=== PATIENT | female | born 1990 | race Caucasian/White ===

== ENCOUNTER → 2018-07-13 17:30 | Outpatient (CLI) | payer OTHER, SELFPAY ==
[2018-07-13 19:32] LABS: Chlamydia Trachomatis by PCR Negative (Negative); Neisserai gonorrhoeae by PCR Negative (Negative); Probe Check PASS; Sample Adequacy Control PASS; Specimen Processing Control PASS
== END ==
PROVIDERS: Family Provider Family Medicine; PCP Family Medicine; Visit Provider Obstetrics & Gynecology
DX: Z34.90 Encounter for supervision of normal pregnancy, unspecified, unspecified trimester (principal)
CPT/HCPCS: 87086; 87491; 87591

== ENCOUNTER → 2018-07-14 16:25 | Outpatient (CLI) | payer OTHER, SELFPAY ==
[2018-07-14 17:12] LABS: Absolute Lymphocyte Count 1.95 X10^3/ul (0.83-4.51); Absolute Neutrophil Count 5.7 X10^3/uL (2.0-7.7); Basophil# 0.01 X10^3/uL; Basophil% 0.1 % (0-1); Eosinophil# 0.11 X10^3/uL; Eosinophils% 1.3 % (0-5); Hematocrit 35.3 % (37-47); Hemoglobin 12.2 g/dl (12.0-15.0); Lymphocyte # 1.95 X10^3/ul (4.0); Mean Corp Hgb Conc 34.6 g/gl (32-36); Mean Corpuscular Hgb 30.1 pg (27.0-32.0); Mean Corpuscular Volume 87.2 fL (81-99); Mean Platelet Vol. 9.3 fl (6.2-12.0); Monocyte# 0.69 X10^3/uL; Monocyte% 8.1 % (0-10); Neutrophil % 67.3 % (47-70); Platelet Count 255 K/mm3 (150-450); RBC Distribution Width CV 13.3 % (11.6-14.6); RBC Distribution Width SD 41.6 fl (35.1-43.9); Red Blood Count 4.05 M/mm3 (4.2-5.4); White Blood Count 8.5 K/mm3 (4.4-11.0)
[2018-07-14 17:47] LABS: POSITIVE COUNT NO; POSITIVE DIFFERENTIAL NO; POSITIVE MORPHOLOGY NO
[2018-07-14 17:59] LABS: Thyroid Stim Hormone (TSH) 0.35 uIU/mL (0.358-3.74)
[2018-07-14 18:31] LABS: HIV - WCH Non-Reactive (Nonreactive); Rubella IgG 96.5 IU/mL
[2018-07-16 03:42] LABS: Rapid Plasmin Reagin (RPR) NONREACTIVE (NONREACTIVE)
[2018-07-16 11:29] LABS: HEPATITIS B SURFACE AG Negative (Negative)
== END ==
PROVIDERS: Family Provider Family Medicine; PCP Family Medicine; Visit Provider Obstetrics & Gynecology
DX: Z34.90 Encounter for supervision of normal pregnancy, unspecified, unspecified trimester (principal); N92.6 Irregular menstruation, unspecified
CPT/HCPCS: 36415; 84443; 85025; 86592; 86703; 86762; 86850; 86900; 87340

== ENCOUNTER → 2018-07-15 13:25 | Outpatient (CLI) | payer OTHER, SELFPAY ==
[2018-07-15 17:39] LABS: Free T3 2.4 pg/mL (2.18-3.98)
== END ==
PROVIDERS: Family Provider Family Medicine; PCP Family Medicine; Visit Provider Obstetrics & Gynecology
DX: R79.89 Other specified abnormal findings of blood chemistry (principal)
CPT/HCPCS: 36415; 84481

== ENCOUNTER → 2018-11-22 13:40 | Outpatient (CLI) | payer OTHER, SELFPAY ==
[2018-11-22 13:26] VITALS: BMI 28.5
--- NOTE | 2018-11-22 13:42 | US_ITS ---
STUDY: SECOND AND THIRD TRIMESTER OBSTETRICAL ULTRASOUND - LIMITED REASON FOR EXAM: Female, 28 years old. Right abdominal pain LMP: May 16, 2018 PRIOR ULTRASOUND: None. TECHNIQUE: Transabdominal TECHNICAL QUALITY: Adequate. FINDINGS: There is a single intrauterine fetus. The fetus is in a cephalic presentation. There is demonstrated cardiac activity with a heart rate of 142 bpm. There is a normal amniotic fluid volume. The largest amniotic fluid pocket measures 4.1 cm. The amniotic fluid index (ADAM) is 14.0 cm. The placenta is fundal and posterior There are Grade 0 placental changes. The cervix measures 3.8 cm in length. There is maternal right hydronephrosis. BIOMETRY: BPD: 6.9 cm: 27 weeks, 6 days HC: 27.3 cm: 28 weeks, 5 days AC: 23.0 cm: 27 weeks, 3 days FL: 5.3 cm: 28 weeks, 1 days Age by LMP: 27 weeks, 1 days. DONALD by LMP: February 20, 2019. age by current US: 28 weeks, 1 days. DONALD by current US: February 13, 2019. Estimated weight: 1124 grams, +/- 164 grams, 64 percentile. US/OB Limited With Biometrics IMPRESSION: Single intrauterine gestation 28 weeks 1 day with estimated due date February 13, 2019. Estimated weight 1124 g. Maternal hydronephrosis. Electronically Signed: Rich Marcos MD at 15:44 EST , Service support ,
== END ==
PROVIDERS: Family Provider Family Medicine; PCP Family Medicine; Referring Provider Nurse Practitioner Women's Health; Visit Provider Nurse Practitioner Women's Health
DX: O26.899 Other specified pregnancy related conditions, unspecified trimester (principal); R10.30 Lower abdominal pain, unspecified; Z3A.00 Weeks of gestation of pregnancy not specified
CPT/HCPCS: 76816; 87086

== ENCOUNTER → 2018-11-26 10:46 | Outpatient (CLI) | payer OTHER, SELFPAY ==
[2018-11-22 13:26] VITALS: BMI 28.5
[2018-11-26 12:12] LABS: Absolute Lymphocyte Count 1.59 X10^3/ul (0.83-4.51); Absolute Neutrophil Count 5.9 X10^3/uL (2.0-7.7); Basophil# 0.01 X10^3/uL; Basophil% 0.1 % (0-1); Eosinophil# 0.08 X10^3/uL; Eosinophils% 0.9 % (0-5); Hematocrit 35.8 % (37-47); Hemoglobin 12.1 g/dl (12.0-15.0); Lymphocyte # 1.59 X10^3/ul (4.0); Lymphocyte % 18.9 % (19-41); Mean Corp Hgb Conc 33.8 g/gl (32-36); Mean Corpuscular Hgb 30.9 pg (27.0-32.0); Mean Corpuscular Volume 91.3 fL (81-99); Mean Platelet Vol. 9.4 fl (6.2-12.0); Monocyte# 0.75 X10^3/uL; Monocyte% 8.9 % (0-10); Neutrophil # 5.93 X10^3/uL (2.7-7.7); Neutrophil % 70.4 % (47-70); Platelet Count 215 K/mm3 (150-450); RBC Distribution Width CV 13.4 % (11.6-14.6); RBC Distribution Width SD 43.9 fl (35.1-43.9); Red Blood Count 3.92 M/mm3 (4.2-5.4); White Blood Count 8.4 K/mm3 (4.4-11.0)
[2018-11-26 12:14] LABS: POSITIVE COUNT NO; POSITIVE DIFFERENTIAL NO; POSITIVE MORPHOLOGY NO
[2018-11-26 13:00] LABS: Glucose Challenge Gest 1H 50g 102 mg/dL (70-140)
--- OUTSIDE RECORDS SUMMARY | 2019-01-30 19:36 | XMS RPT_ITS ---
:1990 Author Organization OHIP Support Name Relationship Address Phone FOX HEADLEY Unavailable [address] + [place] [address] WC Unavailable [address] + [place] [address] TAYLOR HEADLEYER Unavailable [address] + [place] [address] [facility] Unavailable [address] + [place] [address] FANG FOX Unavailable [address] + [place] [address] [facility] Unavailable [address] + [place] [address] FANG FOX Unavailable [address] + [place] [address] [facility] Unavailable [address] + [place] [address] FANG FOX Unavailable [address] + [place] [address] [facility] Unavailable [address] + [place] [address] FANG, FOX Unavailable [address] + [place] [address] [facility] Unavailable [address] + [place] [address] FANG FOX Unavailable [address] + [place] [address] [facility] Unavailable [address] + [place] [address] FANG FOX Unavailable [address] + [place] [address] [facility] Unavailable [address] + [place] [address] FANG FOX Unavailable [address] + [place] [address] [facility] Unavailable [address] + [place] [address] FANG FOX Unavailable [address] + [place] [address] [facility] Unavailable [address] + [place] [address] FANG FOX Unavailable [address] + [place] [address] [facility] Unavailable [address] + [place] [address] LESLEY ALEXANDER Unavailable [address] + [place] [address] [facility] Unavailable [address] + [place] [address] FANG FOX Unavailable [address] + [place] [address] [facility] Unavailable [address] + [place] [address] Care Team Providers Name Role Phone ARTHUR MEJIA Attending Unavailable SAMANTHA CASTRO Referring Unavailable NO PRIMARY MD CHARU Primary Care Unavailable Samantha Castro Attending Unavailable Jos Sheth Referring Unavailable Lissett Elias Attending Unavailable Jos Sheth Referring Unavailable Lissett Elias Attending Unavailable Lissett Elias Referring Unavailable Jos Sheth Primary Care Unavailable Lissett Elias Attending Unavailable Lissett Elias Referring Unavailable Jos Sheth Primary Care Unavailable Samantha Castro Attending Unavailable Jos Sheth Referring Unavailable Jos Sheth Primary Care Unavailable ASSESSMENT, HEALTH RISK Attending Unavailable Jos Sheth Referring Unavailable Jos Sheth Primary Care Unavailable Samantha Castro Attending Unavailable [place], Jos Referring Unavailable Meryl, Jos Primary Care Unavailable Marcanthony, Samantha Attending Unavailable Meryl, Jos Primary Care Unavailable Marcanthony, Samantha Referring Unavailable Marcanthony, Samantha Attending Unavailable Marcanthony, Samantha Referring Unavailable [place], Jos Primary Care Unavailable Marcanthony, Samantha Attending Unavailable Meryl, Jos Primary Care Unavailable Curt, Lissett Attending Unavailable Meryl, Jos Referring Unavailable Marcanthony, Samantha Attending Unavailable Meryl, Jos Referring Unavailable Marcanthony, Samantha Attending Unavailable Meryl, Jos Referring Unavailable PROBLEMS PROBLEMS DATE TYPE CONDITION / CODE ATTENDING STATUS SOURCE 11/22/2018 Unknown R10.30 - [place], Lissett Active [place] abdominal pain, Community unspecified / Hospital R10.30(ICD-10) Repository 11/22/2018 Unknown O26.899 - Other [place], Lissett Active [place] specified Community related Hospital conditions, Repository unspecified trimester / O26.899(ICD-10) 11/22/2018 Unknown R10.9 - [place], Lissett Active [place] Unspecified Community abdominal pain / Hospital R10.9(ICD-10) Repository 11/22/2018 Unknown Z34.02 - [place], Lissett Active [place] Encounter for [facility] normal first [facility] , second trimester / Z34.02(ICD-10) 11/22/2018 Unknown R10.2 - Pelvic [place], Lissett Active [place] and perineal pain Community / R10.2(ICD-10) Hospital Repository 11/22/2018 Unknown Z3A.27 - 27 weeks [place], Lissett Active [place] gestation of [facility] / Hospital Z3A.27(ICD-10) Repository 11/05/2018 Unknown Z3A.24 - 24 weeks Marcanthony, Active [place] gestation of [facility] / Hospital Z3A.24(ICD-10) Repository 09/06/2018 Unknown Z3A.16 - 16 weeks Marcanthony, Active [place] gestation of [facility] / Hospital Z3A.16(ICD-10) Repository 08/09/2018 Unknown Z34.01 - [place], Lissett Active [place] En[facility] for [facility] normal first Repository , first trimester / Z34.01(ICD-10) 08/09/2018 Unknown Z3A.08 - 8 weeks [place], Lissett Active [place] gestation of [facility] / Hospital Z3A.08(ICD-10) Repository 07/16/2018 Unknown R79.89 - Other Marcanthony, Active [place] specified [facility] abnormal findings Hospital of blood Repository chemistry / R79.89(ICD-10) 09/29/2018 Unknown Z34.90 - [place], Active [place] Encounter for [facility] supervision of Hospital normal , Repository unspecified, unspecified trimester / Z34.90(ICD-10) 09/29/2018 Unknown N92.6 - Irregular Erasmoanthjacob, Active [place] menstruation, [facility] unspecified / Hospital N92.6(ICD-10) Repository PROCEDURES PROCEDURES No Procedure Records FoundRESULTS RESULTS CBC W/DIFF, AUTOMATED Collected: 11/26/2018 Status: F Source: [place] 11:47 AM [facility] REPOSITORY TYPE CODE TESTS RESULT OUT OF RANGE REFERENCE UNITS LAB L100.1000 4.4-11.0 K/mm3 Normal WBC 8.4 LAB L100.1200 4.2-5.4 M/mm3 Low RBC 3.92 LAB L100.1300 12.0-15.0 g/dl Normal HGB 12.1 LAB L100.1400 37-47 % Low HCT 35.8 LAB L100.1500 81-99 fL Normal MCV 91.3 LAB L100.1600 27.0-32.0 pg Normal MCH 30.9 LAB L100.1700 32-36 g/gl Normal MCHC 33.8 LAB L100.1810 11.6-14.6 % Normal RDW CV 13.4 LAB L100.1820 35.1-43.9 fl Normal RDW SD 43.9 LAB L100.1900 150-450 K/mm3 Normal PLT 215 LAB L100.2000 6.2-12.0 fl Normal MPV 9.4 LAB L100.2100 47-70 % High NEUT% 70.4 LAB L100.2200 19-41 % Low LY% 18.9 LAB L100.2300 0-10 % Normal MONO% 8.9 LAB L100.2400 0-5 % Normal EO% 0.9 LAB L100.2500 0-1 % Normal BASO% 0.1 LAB L100.2550 0.0-0.9 % Normal IM GRAN % 0.800 Result Comment: IG% - Immature Granulocytes (promyelocytes, myelocytes and metamyelocytes) > 1% indicates that a LEFT SHIFT is Present. LAB L100.2620 2.0-7.7 X10 3/uL Normal Absolute Neut 5.9 LAB L100.2720 0.83-4.51 X10 3/ul Normal Absolute Lymph 1.59 Performed By: #### L100.0100 #### [facility] [address] [place], [address] GLUCOSE CHALLENGE GEST Collected: 11/26/2018 Status: F Source: [place] 1H 50G 11:47 AM [facility] REPOSITORY TYPE CODE TESTS RESULT OUT OF RANGE REFERENCE UNITS LAB L501.0250 70-140 mg/dL Normal GLU GEST 102 50g 1H Performed By: #### L501.0250 #### [facility] [address] [place], [address] Observed: 11/22/2018 Status: F Source: [place] CULTURE, URINE 6:17 PM [facility] REPOSITORY Urine Culture Culture exhibits no growth. Performed By: #### M100.0650 #### [facility] [address] [place], [address] OB LIMITED WITH Observed: 11/22/2018 Status: F Source: [place] BIOMETRICS 1:42 PM [facility] REPOSITORY [facility] Imaging Services [address] [place] [address] OB Limited With Biometrics MR#: [id number] Acct: [id number] Name: FANGARTHUR M Rep #: [id number] : 1990 F 28 From: Rich Marcos MD PCP: Jos Sheth DO Status: REG CLI Study: OB Limited With Biometrics Date of Exam: 11/22/18 Exam# [id number] Ordering Dr: Lissett Elias EVENT MARKETING MANAGER-C STUDY: SECOND AND THIRD TRIMESTER OBSTETRICAL ULTRASOUND - LIMITED REASON FOR EXAM: Female, 28 years old. Right abdominal pain LMP: May 16, 2018 PRIOR ULTRASOUND: None. TECHNIQUE: Transabdominal TECHNICAL QUALITY: Adequate. FINDINGS: There is a single intrauterine fetus. The fetus is in a cephalic presentation. There is demonstrated cardiac activity with a heart rate of 142 bpm. There is a normal amniotic fluid volume. The largest amniotic fluid pocket measures 4.1 cm. The amniotic fluid index (ADAM) is 14.0 cm. The placenta is fundal and posterior There are Grade 0 placental changes. The cervix measures 3.8 cm in length. There is maternal right hydronephrosis. BIOMETRY: BPD: 6.9 cm: 27 weeks, 6 days HC: 27.3 cm: 28 weeks, 5 days AC: 23.0 cm: 27 weeks, 3 days FL: 5.3 cm: 28 weeks, 1 days Age by LMP: 27 weeks, 1 days. DONALD by LMP: February 20, 2019. age by current US: 28 weeks, 1 days. DONALD by current US: February 13, 2019. Estimated weight: 1124 grams, +/- 164 grams, 64 percentile. US/OB Limited With Biometrics IMPRESSION: Single intrauterine gestation 28 weeks 1 day with estimated due date February 13, 2019. Estimated weight 1124 g. Maternal hydronephrosis. Electronically Signed: Rich Marcos MD at 15:44 EST , Service support , CC: GUME Elias; Jos Sheth DO Freight Car Loader: Signed BUSINESS DEVELOPMENT PROFESSIONAL OFFICE VISIT Observed: 11/22/2018 Status: F Source: [place] REPORT 1:39 PM [facility] REPOSITORY [facility] [address] [place] [address] OFFICE VISIT Date of Service: 11/22/18 MR#: [id number] Acct: [id number] Name: ARTHUR HEADLEY Rep #: [id number] : 1990 Provider: GUME Elias Age/Sex: 28/F Location: [facility] Status: Signed Intake Vital Signs11/22/18 Height 5 ft 1 in 11/22/18 Weight: 151 lb 11/22/18 Body Mass Index (BMI) 28.5 11/22/18 Blood Pressure 102/70 11/22/18 Temperature 98.6 F 11/22/18 Body Mass Index (BMI) 26.4 Intake Visit Reasons: 27 weeks-R sided abdominal/side pain Chief Complaint: est ob, abd pain Monotype Keyboard Operator Required: No Is patient in pain?: No Allergies amoxicillin Allergy (Mild, Verified 11/22/18 13:26) Other ibuprofen [From Motrin] Allergy (Mild, Verified 11/22/18 13:26) Hives Medications vitamin,calcium,qwrasikb-pyau-audxu acid tablet 1 tab PO DAILY 07/13/18 [History Confirmed 11/22/18] compression stocking,knee high,long length,medium circ See Dose Instructions .ROUTE .MEDSUPPLY #12 ea 11/04/18 [Rx Confirmed 11/22/18] Last Menstral Period: 06/16/18 Zika: Zika virus screening: Negative : No PFSH PFSH Surgical History History of appendectomy (Acute) Family History Unknown Breast cancer Social History Smoking Status: Never smoker alcohol intake: current details: social substance use type: does not use caffeine: Yes what type of physical activity do you participate in: none seatbelt use: always do you feel safe at home: Yes additional social history: - [place] [employer] Performance Patient works in sterile processing Pregancy History 1 Elective abortions Hx Para Spontaneous abortions HPI 27 weeks-R sided abdominal/side pain: Details: ARTHUR HEADLEY is a 28 year old who presents OB patient with lower right abdominal pain since last night. OB Visit DONALD Calculator Estimated Delivery Date 02/20/19 Based on LMP (certain) 05/16/18 Current WG 27w 1d Number 1 Expected Delivery Route/Plan Specific Issue/Plans flu vaccine: open enrollment at hospital tdap vaccine: [] rhogam: [] LARC form signed: [] labor support person: Fox pain management: [] cut cord/dad catch: [] : [] PP control planned: [] special requests: [] Initial Weight: 127 lb Date Weight BP Urine PrFHR FuHt Pres MoCTX DilationFetal StVisit NoProviderComments E ot v te [place] G Effac lucose ed Visit Notes Visit Date: 11/22/18 NO VB, LOF. Pain RLQ 8 last pm. 5 today. Nausea. No fever Lissett Elias, EVENT MARKETING MANAGER-C on 11/22/18 Visit Date: 11/05/18 no vb lof good fm no regular ctx Samantha Castro MD on 11/05/18 Visit Date: 10/08/18 no vb lof good fm n oregualr ctx Samantha Castro MD on 10/08/18 Visit Date: 09/06/18 no vb cramping Samantha Castro MD on 09/06/18 Visit Date: 08/09/18 No visit notes to display Visit Date: 07/13/18 No visit notes to display ACOG First Trimester First Trimester: Desire for , Alcohol, Tobacco Cessation, Illicit/Recreational Drug/Substance Use, Intimate Partner Violence, Barriers to care, Unstable Housing, Communication Barriers, Environmental/Work Hazards, Anticipated Course of Care, Toxoplasmosis Precations, Use of Any medications, Sexual activity, Exercise, Dental Care, Sauna/Hot tub use, Seat Belt use, Childbirth classes/Hospital facilities, , Travel, Indications for US and Screening for Aneuploidy Diagnostics Diagnostics Labs Blood Type A POSITIVE 07/14/18 Antibody Screen NEGATIVE 07/14/18 Hct 35.3 % (37-47) L 07/14/18 Hgb 12.2 g/dl (12.0-15.0) 07/14/18 Rubella IgG Antibody 96.5 IU/mL 07/14/18 RPR NONREACTIVE (NONREACTIVE) 07/14/18 Hep Bs Antigen Negative (Negative) 07/14/18 Chlam trachomat DNA PCR Negative (Negative) 07/13/18 N.gonorrhoeae DNA (PCR) Negative (Negative) 07/13/18 Details: HIV: Urine Culture: Sequential Screen: NIPT Screen: Results BMSUA Office Urine Color YELLOW Last Edit by Jacque Villareal on 11/22/18 13:32 Office Urine Clarity Cloudy Last Edit by Jacque Villareal on 11/22/18 13:32 trace- leuks Assessment AND Plan Problems 1. Abdominal pain affecting O26.899; R10.9 2. Encounter for supervision of normal first in second trimester Z34.02 PRR DONALD 02/20/19 boy Fox Churchill) 3. 27 weeks gestation of Z3A.27 genetic and NTD screening, carrier screening declined. MFM anatomy US normal. Plan UA dip trace leuks and blood-send culture US growth CBC Tylenol, heat prn May be round ligament pain, scarring from previous appendectomy Orders Orders: Coding Level of Care Code OB Routine Diagnoses Abdominal pain affecting O26.899; R10.9 Encounter for supervision of normal first in second trimester Z34.02 Normal : normal first Trimester: second trimester 27 weeks gestation of Z3A.27 Weeks of gestation: 27 weeks 11/22/18 1339 <Electronically signed by Lissett ORONA> Date Lissett ORONA Cosigner Signature: Date (if applicable) CC: BUSINESS DEVELOPMENT PROFESSIONAL OFFICE VISIT Observed: 11/05/2018 Status: F Source: [place] REPORT 10:23 AM [facility] REPOSITORY [facility] [address] [place] [address]. [address] [place] [address] OFFICE VISIT Date of Service: 11/05/18 MR#: [id number] Acct: [id number] Name: FANGARTHUR M Rep #: [id number] : 1990 Provider: Samantha Castro MD Age/Sex: 28/F Location: [facility] Status: Signed Intake Vital Signs11/05/18 Body Mass Index (BMI) 26.4 11/05/18 Height 5 ft 1 in 11/05/18 Weight: 144 lb 11/05/18 Body Mass Index (BMI) 27.1 11/05/18 Blood Pressure 110/70 Intake Visit Reasons: 24 WEEKS Monotype Keyboard Operator Required: No Is patient in pain?: No Allergies amoxicillin Allergy (Mild, Verified 11/05/18 10:10) Other ibuprofen [From Motrin] Allergy (Mild, Verified 11/05/18 10:10) Hives Medications vitamin,calcium,ecjcpxos-yvjl-nvvmo acid tablet 1 tab PO DAILY 07/13/18 [History Confirmed 11/05/18] compression stocking,knee high,long length,medium circ See Dose Instructions .ROUTE .MEDSUPPLY #12 ea 11/04/18 [Rx Confirmed 11/05/18] Last Menstral Period: 06/16/18 Zika: Zika virus screening: Negative : No PFSH PFSH Surgical History History of appendectomy (Acute) Family History Unknown Breast cancer Social History Smoking Status: Never smoker alcohol intake: current details: social substance use type: does not use caffeine: Yes what type of physical activity do you participate in: none seatbelt use: always do you feel safe at home: Yes additional social history: - [employer] Patient works in sterile processing Pregancy History 1 Elective abortions Hx Para Spontaneous abortions HPI 24 WEEKS: Details: ARTHUR HEADELY is a 28 year old who presents for routine OB visit. OB Visit DONALD Calculator Estimated Delivery Date 02/20/19 Based on LMP (certain) 05/16/18 Current WG 24w 5d Number 1 Expected Delivery Route/Plan Specific Issue/Plans flu vaccine: open enrollment at hospital tdap vaccine: [] rhogam: [] LARC form signed: [] labor support person: Fox pain management: [] cut cord/dad catch: [] : [] PP control planned: [] special requests: [] Initial Weight: 127 lb Date Weight BP Urine PrFHR FuHt Pres MoCTX DilationFetal StVisit NoProviderComments E ot v te [place] G Effac lucose ed Visit Notes Visit Date: 11/05/18 no vb lof good fm no regular ctx Samantha Castro MD on 11/05/18 Visit Date: 10/08/18 no vb lof good fm n oregualr ctx Samantha Castro MD on 10/08/18 Visit Date: 09/06/18 no vb cramping Samantha Castro MD on 09/06/18 Visit Date: 08/09/18 No visit notes to display Visit Date: 07/13/18 No visit notes to display ACOG First Trimester First Trimester: Desire for , Alcohol, Tobacco Cessation, Illicit/Recreational Drug/Substance Use, Intimate Partner Violence, Barriers to care, Unstable Housing, Communication Barriers, Environmental/Work Hazards, Anticipated Course of Care, Toxoplasmosis Precations, Use of Any medications, Sexual activity, Exercise, Dental Care, Sauna/Hot tub use, Seat Belt use, Childbirth classes/Hospital facilities, , Travel, Indications for US and Screening for Aneuploidy Diagnostics Diagnostics Labs Blood Type A POSITIVE 07/14/18 Antibody Screen NEGATIVE 07/14/18 Hct 35.3 % (37-47) L 07/14/18 Hgb 12.2 g/dl (12.0-15.0) 07/14/18 Rubella IgG Antibody 96.5 IU/mL 07/14/18 RPR NONREACTIVE (NONREACTIVE) 07/14/18 Hep Bs Antigen Negative (Negative) 07/14/18 Chlam trachomat DNA PCR Negative (Negative) 07/13/18 N.gonorrhoeae DNA (PCR) Negative (Negative) 07/13/18 Details: HIV: Urine Culture: Sequential Screen: NIPT Screen: Results [email or web address] Office Urine Glucose Negative Last Edit by Prudence Guillory on 11/05/18 10:09 Office Urine Protein Negative Last Edit by Prudence Guillory on 11/05/18 10:09 Assessment AND Plan Problems 1. 24 weeks gestation of Z3A.24 genetic and NTD screening, carrier screening declined. MFM anatomy US normal. 2. Encounter for supervision of normal first in second trimester Z34.02 PRR DONALD 02/20/19 boy Fox Churchill) Plan movement and labor precautions reviewed. ACOG trimester education reviewed and updated. see problem list details for updated plan management information and see below for orders placed at this visit. [place] appropriate handout given. Orders Orders: Coding Level of Care Code OB Routine Diagnoses 24 weeks gestation of Z3A.24 Weeks of gestation: 24 weeks Encounter for supervision of normal first in second trimester Z34.02 Normal : normal first Trimester: second trimester 11/05/18 1023 <Electronically signed by Samantha Castro MD> Date Samantha Castro MD Cosigner Signature: Date (if applicable) CC: BUSINESS DEVELOPMENT PROFESSIONAL OFFICE VISIT Observed: 10/08/2018 Status: F Source: [place] REPORT 1:43 PM [facility] REPOSITORY [facility] [address] [place] [address] OFFICE VISIT Date of Service: 10/08/18 MR#: [id number] Acct: [id number] Name: ARTHUR HEADLEY Rep #: [id number] : 1990 Provider: Samantha Castro MD Age/Sex: 28/F Location: [facility] Status: Signed Intake Vital Signs10/08/18 Height 5 ft 1 in 10/08/18 Weight: 140 lb 10/08/18 Body Mass Index (BMI) 26.4 10/08/18 Blood Pressure 92/60 Intake Visit Reasons: 20 weeks Chief Complaint: est ob Monotype Keyboard Operator Required: No Is patient in pain?: No Allergies amoxicillin Allergy (Mild, Verified 10/08/18 13:14) Other ibuprofen [From Motrin] Allergy (Mild, Verified 10/08/18 13:14) Hives Medications vitamin,calcium,qlvhoetj-ydhv-ixjip acid tablet 1 tab PO DAILY 07/13/18 [History Confirmed 10/08/18] Last Menstral Period: 06/16/18 Zika: Zika virus screening: Negative : No PFSH PFSH Surgical History History of appendectomy (Acute) Family History Unknown Breast cancer Social History Smoking Status: Never smoker alcohol intake: current details: social substance use type: does not use caffeine: Yes what type of physical activity do you participate in: none seatbelt use: always do you feel safe at home: Yes additional social history: - [place] [employer] Performance Patient works in sterile processing Pregancy History 1 Elective abortions Hx Para Spontaneous abortions HPI 20 weeks: Details: ARTHUR HEADLEY is a 28 year old who presents for routine OB visit. OB Visit DONALD Calculator Estimated Delivery Date 02/20/19 Based on LMP (certain) 05/16/18 Current WG 20w 5d Number 1 Expected Delivery Route/Plan Specific Issue/Plans flu vaccine: open enrollment at hospital tdap vaccine: [] rhogam: [] LARC form signed: [] labor support person: Fox pain management: [] cut cord/dad catch: [] : [] PP control planned: [] special requests: [] Initial Weight: 127 lb Date Weight BP Urine PrFHR FuHt Pres MoCTX DilationFetal StVisit NoProviderComments E ot v te [place] G Effac lucose ed Visit Notes Visit Date: 10/08/18 no vb lof good fm n oregualr ctx Samantha Castro MD on 10/08/18 Visit Date: 09/06/18 no vb cramping Samantha Castro MD on 09/06/18 Visit Date: 08/09/18 No visit notes to display Visit Date: 07/13/18 No visit notes to display ACOG First Trimester First Trimester: Desire for , Alcohol, Tobacco Cessation, Illicit/Recreational Drug/Substance Use, Intimate Partner Violence, Barriers to care, Unstable Housing, Communication Barriers, Environmental/Work Hazards, Anticipated Course of Care, Toxoplasmosis Precations, Use of Any medications, Sexual activity, Exercise, Dental Care, Sauna/Hot tub use, Seat Belt use, Childbirth classes/Hospital facilities, , Travel, Indications for US and Screening for Aneuploidy Diagnostics Diagnostics Labs Blood Type A POSITIVE 07/14/18 Antibody Screen NEGATIVE 07/14/18 Hct 35.3 % (37-47) L 07/14/18 Hgb 12.2 g/dl (12.0-15.0) 07/14/18 Rubella IgG Antibody 96.5 IU/mL 07/14/18 RPR NONREACTIVE (NONREACTIVE) 07/14/18 Hep Bs Antigen Negative (Negative) 07/14/18 Chlam trachomat DNA PCR Negative (Negative) 07/13/18 N.gonorrhoeae DNA (PCR) Negative (Negative) 07/13/18 Details: HIV: Urine Culture: Sequential Screen: NIPT Screen: Results [email or web address] Office Urine Glucose Negative Last Edit by Jacque Villareal on 10/08/18 13:18 Office Urine Protein Negative Last Edit by Jacque Villareal on 10/08/18 13:18 Assessment AND Plan Problems 1. 20 weeks gestation of Z3A.20 genetic and NTD screening, carrier screening declined. MFM anatomy US normal. 2. Encounter for supervision of normal first in second trimester Z34.02 PRR DONALD 02/20/19 Fox Plan ACOG trimester education reviewed and updated. see problem list details for updated plan management information and see below for orders placed at this visit. [place] appropriate handout given. Orders Orders: Coding Level of Care Code OB Routine Diagnoses 20 weeks gestation of Z3A.20 Weeks of gestation: 20 weeks Encounter for supervision of normal first in second trimester Z34.02 Normal : normal first Trimester: second trimester 10/08/18 1343 <Electronically signed by Samantha Castro MD> Date Samantha Castro MD [facility] Signature: Date (if applicable) CC: BUSINESS DEVELOPMENT PROFESSIONAL OFFICE VISIT Observed: 09/06/2018 Status: F Source: [place] REPORT 3:40 PM [facility] REPOSITORY [place] [facility] [place] [address] [place] [address] OFFICE VISIT Date of Service: 09/06/18 MR#: [id number] Acct: [id number] Name: ARTHUR HEADLEY Rep #: [id number] : 1990 Provider: Samantha Castro MD Age/Sex: 28/F Location: [facility] Status: Signed Intake Vital Signs09/06/18 Height 5 ft 2 in 09/06/18 Weight: 135 lb 6 oz 09/06/18 Body Mass Index (BMI) 24.7 09/06/18 Blood Pressure 108/62 Intake Visit Reasons: 16 WEEK FOLLOW UP Chief Complaint: est ob Monotype Keyboard Operator Required: No Is patient in pain?: No Allergies amoxicillin Allergy (Mild, Verified 09/06/18 15:04) Other ibuprofen [From Motrin] Allergy (Mild, Verified 09/06/18 15:04) Hives Medications vitamin,calcium,dzggitec-nbeq-hbrsk acid tablet 1 tab PO DAILY 07/13/18 [History Confirmed 09/06/18] Last Menstral Period: 06/16/18 Zika: Zika virus screening: Negative : No PFSH PFSH Surgical History History of appendectomy (Acute) Family History Unknown Breast cancer Social History Smoking Status: Never smoker alcohol intake: current details: social substance use type: does not use caffeine: Yes what type of physical activity do you participate in: none seatbelt use: always do you feel safe at home: Yes additional social history: - [place] [employer] Performance Patient works in [employer] processing Pregancy History 1 Elective abortions Hx Para Spontaneous abortions HPI 16 WEEK FOLLOW UP : Details: ARTHUR HEADLEY is a 28 year old who presents for routine OB visit. OB Visit DONALD Calculator Estimated Delivery Date 02/20/19 Based on LMP (certain) 05/16/18 Current WG 16w 1d Number 1 Expected Delivery Route/Plan Specific Issue/Plans flu vaccine: open enrollment at hospital tdap vaccine: [] rhogam: [] LARC form signed: [] labor support person: Fox pain management: [] cut cord/dad catch: [] : [] PP control planned: [] special requests: [] Initial Weight: 127 lb Date Weight BP Urine PrFHR FuHt Pres MoCTX DilationFetal StVisit NoProviderComments E ot v te GA G Effac lucose ed Visit Notes Visit Date: 09/06/18 no vb juaquinmping Samantha Castro MD on 09/06/18 Visit Date: 08/09/18 No visit notes to display Visit Date: 07/13/18 No visit notes to display ACOG First Trimester First Trimester: Desire for , Alcohol, Tobacco Cessation, Illicit/Recreational Drug/Substance Use, Intimate Partner Violence, Barriers to care, Unstable Housing, Communication Barriers, Environmental/Work Hazards, Anticipated Course of Care, Toxoplasmosis Precations, Use of Any medications, Sexual activity, Exercise, Dental Care, Sauna/Hot tub use, Seat Belt use, Childbirth classes/Hospital facilities, , Travel, Indications for US and Screening for Aneuploidy Diagnostics Diagnostics Labs Blood Type A POSITIVE 07/14/18 Antibody Screen NEGATIVE 07/14/18 Hct 35.3 % (37-47) L 07/14/18 Hgb 12.2 g/dl (12.0-15.0) 07/14/18 Rubella IgG Antibody 96.5 IU/mL 07/14/18 RPR NONREACTIVE (NONREACTIVE) 07/14/18 Hep Bs Antigen Negative (Negative) 07/14/18 Chlam trachomat DNA PCR Negative (Negative) 07/13/18 N.gonorrhoeae DNA (PCR) Negative (Negative) 07/13/18 Details: HIV: Urine Culture: Sequential Screen: NIPT Screen: Results [id number] Office Urine Glucose Negative Last Edit by Jacque Villareal on 09/06/18 15:09 Office Urine Protein Negative Last Edit by Jacque Villareal on 09/06/18 15:09 Assessment AND Plan Problems 1. Encounter for supervision of normal first in second trimester Z34.02 PRR DONALD 02/20/19 Fox 2. 16 weeks gestation of Z3A.16 genetic and NTD screening, carrier screening declined. M anatomy US ordered Plan ACOG trimester education reviewed and updated. see problem list details for updated plan management information and see below for orders placed at this visit. GA appropriate handout given. Orders Orders: Coding Level of Care Code OB Routine Diagnoses Encounter for supervision of normal first in second trimester Z34.02 Normal : normal first Trimester: second trimester 16 weeks gestation of Z3A.16 Weeks of gestation: 16 weeks 09/06/18 1540 <Electronically signed by Samantha Castro MD> Date Samantha Castro MD Cosigner Signature: Date (if applicable) CC: BUSINESS DEVELOPMENT PROFESSIONAL OFFICE VISIT Observed: 08/09/2018 Status: F Source: [place] REPORT 1:31 PM [facility] REPOSITORY [facility] [address] [place] [address] [place] [place] [address] OFFICE VISIT Date of Service: 08/09/18 MR#: [id number] Acct: [id number] Name: ARTHUR HEADLEY Rep #: [id number] : 1990 Provider: GUME Elias Age/Sex: 28/F Location: [facility] Status: Signed Intake Vital Signs08/09/18 Height 5 ft 2 in 08/09/18 Weight: 132 lb 08/09/18 Body Mass Index (BMI) 24.1 08/09/18 Blood Pressure 98/64 Intake Visit Reasons: 12 weeks Chief Complaint: est ob Monotype Keyboard Operator Required: No Is patient in pain?: No Allergies amoxicillin Allergy (Mild, Verified 08/09/18 13:06) Other ibuprofen [From Motrin] Allergy (Mild, Verified 08/09/18 13:06) Hives Medications vitamin,calcium,rgpixsur-xjub-vffoz acid tablet 1 tab PO DAILY 07/13/18 [History Confirmed 08/09/18] Last Menstral Period: 06/16/18 Zika: Zika virus screening: Negative : No PFSH PFSH Surgical History History of appendectomy (Acute) Family History Unknown Breast cancer Social History Smoking Status: Never smoker alcohol intake: current details: social substance use type: does not use caffeine: Yes what type of physical activity do you participate in: none seatbelt use: always do you feel safe at home: Yes additional social history: - [employer] Patient works in sterile processing Pregancy History 1 Elective abortions Hx Para Spontaneous abortions HPI 12 weeks: Details: ARTHUR HEADLEY is a 28 year old who presents for routine OB visit. OB Visit DONALD Calculator Estimated Delivery Date 02/20/19 Based on LMP (certain) 05/16/18 Current WG 12w 1d Number 1 Expected Delivery Route/Plan Specific Issue/Plans flu vaccine: [] tdap vaccine: [] rhogam: [] LARC form signed: [] labor support person: Fox pain management: [] cut cord/dad catch: [] : [] PP control planned: [] special requests: [] Initial Weight: 127 lb Date Weight BP Urine PFHR FuHt Pres MCTX DilatioFetal SVisit NProvideComment rot ov n t ote r s EGA Ef Gluco faced se 07/13/1127 lb 102/62 8 2 oz (+ 8w2 oz) 2d ACOG First Trimester First Trimester: Desire for , Alcohol, Tobacco Cessation, Illicit/Recreational Drug/Substance Use, Intimate Partner Violence, Barriers to care, Unstable Housing, Communication Barriers, Environmental/Work Hazards, Anticipated Course of Care, Toxoplasmosis Precations, Use of Any medications, Sexual activity, Exercise, Dental Care, Sauna/Hot tub use, Seat Belt use, Childbirth classes/Hospital facilities, , Travel, Indications for US and Screening for Aneuploidy Diagnostics Diagnostics Labs Blood Type A POSITIVE 07/14/18 Antibody Screen NEGATIVE 07/14/18 Hct 35.3 % (37-47) L 07/14/18 Hgb 12.2 g/dl (12.0-15.0) 07/14/18 Rubella IgG Antibody 96.5 IU/mL 07/14/18 RPR NONREACTIVE (NONREACTIVE) 07/14/18 Hep Bs Antigen Negative (Negative) 07/14/18 Chlam trachomat DNA PCR Negative (Negative) 07/13/18 N.gonorrhoeae DNA (PCR) Negative (Negative) 07/13/18 Details: HIV: Urine Culture: Sequential Screen: NIPT Screen: Results [id number] Office Urine Glucose Negative Last Edit by Jacque Villareal on 08/09/18 13:13 Office Urine Protein Negative Last Edit by Jacque Villareal on 08/09/18 13:13 Assessment AND Plan Problems 1. Encounter for supervision of normal first in first trimester Z34.01 DONALD 02/20/19 Fox 2. 8 weeks gestation of Z3A.08 genetic and NTD screening options declined. Will consider AFP MFM anatomy US ordered Plan Orders placed: MFM anatomy US Declines genetic screening but will consider AFP Reviewed of labor precautions, movement/kick counts ACOG trimester education reviewed and updated See problem list details for updated plan of care Gestational age appropriate handout given RTO: 4 weeks Orders Orders: Coding Level of Care Code OB Routine Diagnoses Encounter for supervision of normal first in first trimester Z34.01 Normal : normal first Trimester: first trimester 8 weeks gestation of Z3A.08 Weeks of gestation: 8 weeks 08/09/18 1331 <Electronically signed by Lissett ORONA> Date Lissett ORONA Cosigner Signature: Date (if applicable) CC: FREE T3 Collected: 07/15/2018 Status: F Source: [place] 1:26 PM [facility] REPOSITORY TYPE CODE TESTS RESULT OUT OF RANGE REFERENCE UNITS LAB L501.55532 2.18-3.98 pg/mL Normal FREE T3 2.4 Performed By: #### L501.87844 #### [facility] [address] [place], [address] CBC W/DIFF, AUTOMATED Collected: 07/14/2018 Status: F Source: [place] 4:33 PM [facility] REPOSITORY TYPE CODE TESTS RESULT OUT OF RANGE REFERENCE UNITS LAB L100.1000 4.4-11.0 K/mm3 Normal WBC 8.5 LAB L100.1200 4.2-5.4 M/mm3 Low RBC 4.05 LAB L100.1300 12.0-15.0 g/dl Normal HGB 12.2 LAB L100.1400 37-47 % Low HCT 35.3 LAB L100.1500 81-99 fL Normal MCV 87.2 LAB L100.1600 27.0-32.0 pg Normal MCH 30.1 LAB L100.1700 32-36 g/gl Normal MCHC 34.6 LAB L100.1810 11.6-14.6 % Normal RDW CV 13.3 LAB L100.1820 35.1-43.9 fl Normal RDW SD 41.6 LAB L100.1900 150-450 K/mm3 Normal PLT 255 LAB L100.2000 6.2-12.0 fl Normal MPV 9.3 LAB L100.2100 47-70 % Normal NEUT% 67.3 LAB L100.2200 19-41 % Normal LY% 23.0 LAB L100.2300 0-10 % Normal MONO% 8.1 LAB L100.2400 0-5 % Normal EO% 1.3 LAB L100.2500 0-1 % Normal BASO% 0.1 LAB L100.2550 0.0-0.9 % Normal IM GRAN % 0.200 Result Comment: IG% - Immature Granulocytes (promyelocytes, myelocytes and metamyelocytes) > 1% indicates that a LEFT SHIFT is Present. LAB L100.2620 2.0-7.7 X10 3/uL Normal Absolute Neut 5.7 LAB L100.2720 0.83-4.51 X10 3/ul Normal Absolute Lymph 1.95 Performed By: #### L100.0100, B101.7450 #### [facility] [address] [place], [address] #### L3100.0390 #### [facility] (refer to report for specific site) refer to report for address and phone number TYPE AND SCREEN Collected: 07/14/2018 Status: F Source: [place] 4:33 PM [facility] REPOSITORY Order Comment: Reason for Type AND Screen/Red Cells: TYPE CODE TESTS RESULT OUT OF RANGE REFERENCE UNITS LAB B10.0800 A Normal BLOOD TYPE GEL POSITIVE LAB B100.4000 Normal Antibody NEGATIVE Screen Performed By: #### L100.0100, B101.7450 #### [facility] [address] [facility] [place], [address] #### L3100.0390 #### [facility] (refer to report for specific site) refer to report for address and phone number HEPATITIS B SURFACE Collected: 07/14/2018 Status: F Source: [place] 4:33 PM [facility] REPOSITORY TYPE CODE TESTS RESULT OUT OF RANGE REFERENCE UNITS LAB L3100.0400 Negative Normal HB Negative SURF AG Result Comment: Performed at: [facility] [address] [id number] [employer] Offbearer: Franklyn Art PhD, Phone: [phone] Performed By: #### L100.0100, B101.7450 #### [facility] [address] [place] [address] #### L3100.0390 #### [facility] (refer to report for specific site) refer to report for address and phone number THYROID STIM HORMONE Collected: 07/14/2018 Status: F Source: [place] (TSH) 4:33 PM [facility] REPOSITORY TYPE CODE TESTS RESULT OUT OF RANGE REFERENCE UNITS LAB L501.9520 0.358-3.74 uIU/mL Low TSH 0.35 Performed By: #### L501.9520 #### [facility] [place], [address] RUBELLA IGG Collected: 07/14/2018 Status: F Source: [place] 4:33 PM [facility] REPOSITORY TYPE CODE TESTS RESULT OUT OF RANGE REFERENCE UNITS LAB L509.4000 IU/mL Normal Rubella IgG 96.5 Result Comment: Antibody results Interpretation of Immune Status < 5 IU/ml Presumed Non-immune 5 - < 10 IU/ml Equivocal > or = 10 IU/ml Presumed Immune Performed By: #### L509.4000, L3890.6005, L700.5000 #### [facility] [facility] [place], [address] HIV - [facility] Collected: 07/14/2018 Status: F Source: [place] 4:33 PM [facility] REPOSITORY TYPE CODE TESTS RESULT OUT OF RANGE REFERENCE UNITS LAB L3890.6005 Nonreactive Normal HIV - [facility] Non-Reactive Performed By: #### L509.4000, L3890.6005, L700.5000 #### [facility] [address] [place], [place], [id number] RAPID PLASMIN REAGIN Collected: 07/14/2018 Status: F Source: [place] (RPR) 4:33 PM [facility] REPOSITORY TYPE CODE TESTS RESULT OUT OF REFERENCE UNITS RANGE LAB L700.5000 NONREACTIVE NONREACTIVE Normal RPR Performed By: #### L509.4000, L3890.6005, L700.5000 #### [facility] [address] [place], [address] CT/NG WCH BY PCR Collected: 07/13/2018 Status: F Source: [place] 5:31 PM [facility] REPOSITORY TYPE CODE TESTS RESULT OUT OF RANGE REFERENCE UNITS LAB L8200.2100 Negative Normal Chlam Negative Trac PCR LAB L8200.2200 Negative Normal NG by Negative PCR Performed By: #### L8200.1999, M100.0650 #### [facility] [address] [place], [address] Observed: 07/13/2018 Status: F Source: [place] CULTURE, URINE 5:31 PM [facility] REPOSITORY Urine Culture Culture exhibits no growth. Performed By: #### L8200.1999, M100.0650 #### [facility] [address] [place], [address] BUSINESS DEVELOPMENT PROFESSIONAL OFFICE VISIT Observed: 07/13/2018 Status: F Source: [place] REPORT 1:52 PM [facility] REPOSITORY [facility] [address] [place] [address] OFFICE VISIT Date of Service: 07/13/18 MR#: [id number] Acct: [id number] Name: ARTHUR HEADLEY Rep #: [id number] : 1990 Provider: Samantha Castro MD Age/Sex: 28/F Location: [facility] Status: Signed Intake Vital Signs07/13/18 Height 5 ft 2 in 07/13/18 Weight: 127 lb 2 oz 07/13/18 Body Mass Index (BMI) 23.2 07/13/18 Blood Pressure 102/62 Intake Visit Reasons: NOB - LMP 06/16 Chief Complaint: NEW OB Monotype Keyboard Operator Required: No Is patient in pain?: No Allergies amoxicillin Allergy (Mild, Verified 07/13/18 12:01) Other ibuprofen [From Motrin] Allergy (Mild, Verified 07/13/18 12:01) Hives Medications vitamin,calcium,uhgfspsg-zqej-yxvhd acid tablet 1 tab PO DAILY 07/13/18 [History Confirmed 07/13/18] Last Menstral Period: 06/16/18 Zika: Zika virus screening: Positive ([place]) : No PFSH PFSH Surgical History History of appendectomy (Acute) Family History Unknown Breast cancer Social History Smoking Status: Never smoker alcohol intake: current details: social substance use type: does not use caffeine: Yes what type of physical activity do you participate in: none seatbelt use: always do you feel safe at home: Yes additional social history: - [employer] Patient works in [employer] processing Pregancy History 1 Elective abortions Hx Para Spontaneous abortions HPI NOB - LMP 06/16: Details: ARTHUR HEADLEY is a 28 year old who presents for New OB visit. OB Visit DONALD Calculator Estimated Delivery Date 02/20/19 Based on LMP (certain) 05/16/18 Current WG 8w 2d Number 1 Expected Delivery Route/Plan Initial Weight: 127 lb Date Weight BP Urine PrFHR FuHt Pres MoCTX DilationFetal StVisit NoProviderComments E ot v te GA G Effac lucose ed Menstrual History Last Menstral Period: 06/16/18 Reported LMP: definite Normal amount/duration: Yes On hormonal BC at conception: No hCG+: 06/13/18 Antepartum Record Genetic Screening: Congenital Heart Defect: Other, Neural Tube Defect: Other, Hemoglobinopathy Or Carrier: Other, Cystic Fibrosis: Other, Chromosome Abnormality: Other, Kobi-Sachs: Other, Hemophilia: Other, Intellectual Disability/Autism: Partner (aunt- DD), Recurrent Loss/Stillbirth: Other, Other Structural Defect: Other, Other Genetic Disease: Other, Maternal Metabolic Disorder: Other Infection History: Live with someone with TB or Exposed to TB: No, Patient or Partner has history of Genital Herpes: No, Rash or Viral illness since last mentrual period: No, Prior GBS-Infected child: No, History of STD: No, HIV Infection: No, History of Hepatitis: No, Recent travel outside of : No, Concern for Hep exposure: No, Varicella immune: Yes Medical History Medical History: Positive: Drug/latex allergies/reactions, Operations/hospitalizations, Anesthetic complications, Negative: Diabetes, Hypertension, Heart disease, Auto-immune disorder, Kidney disease/UTI, Neurologic/epilepsy, Psychiatric, Depression/ depression, Hepatitis/liver disease, Varicosities/phlebitis, Thyroid dysfunction, Trauma/domestic violence, History of blood transfusions, D (Rh) Sensitized, Pulmonary (e.g.,TB,Asthma), Seasonal allergies, Breast, Parish Worker surgery, History of abnormal pap, Uterine anomaly/pelon, Infertility, Anti-retroviral treatment, Relevant family history, Other ACOG First Trimester First Trimester: , Desire for , Alcohol, Tobacco Cessation, Illicit/Recreational Drug/Substance Use, Intimate Partner Violence, Barriers to care, Unstable Housing, Communication Barriers, Environmental/Work Hazards, Anticipated Course of Care, Nurtrition and weight gain, Toxoplasmosis Precations, Use of Any medications, Sexual activity, Exercise, Dental Care, Sauna/Hot tub use, Seat Belt use, Childbirth classes/Hospital facilities, Travel, Indications for US and Screening for Aneuploidy ROS Const Denies fever(s), Reports system reviewed and no additional complaints, except as docu, Reports fatigue Eyes Reports system reviewed and no additional complaints, except as docu ENT Reports system reviewed and no additional complaints, except as docu Card Denies chest pain, Denies shortness of breath Resp Reports system reviewed and no additional complaints, except as docu, Denies shortness of breath, Denies cough GI Reports nausea, Denies abdominal pain Reports system reviewed and no additional complaints, except as docu Musc Reports system reviewed and no additional complaints, except as docu Skin/Breast Reports system reviewed and no additional complaints, except as docu Neuro Yes system reviewed and no additional complaints, except as docu Psych Reports system reviewed and no additional complaints, except as docu Endo Reports fatigue, Reports system reviewed and no additional complaints, except as docu Exam Const General: healthy appearing, comfortable, no acute distress Orientation: alert [facility] Head: normal to inspection, atraumatic, normocephalic Ears: external ears normal, hearing grossly normal bilaterally Nose: nares normal, external nose normal Mouth: oral mucosae normal Teeth and gingiva: dentition normal Eyes General: appearance normal, both eyes and all related structures Neck Neck: no lymphadenopathy, supple, normal visual inspection Thyroid: thyroid normal Chest Chest palpation AND inspection: normal inspection of the chest Breast inspection: normal inspection of the breasts, normal inspection of the axillae Breast palpation: normal palpation of the breasts, normal palpation of the axillae Resp Effort AND Inspection: normal respiratory effort GI Inspection: normal to inspection Palpation: soft, no hepatosplenomegaly General: bladder normal to palpation External Female Exam: normal external appearance, normal appearance of the urethra Urethra: normal appearance of the urethra Speculum Exam - Vagina: normal appearance of the vagina, normal vaginal discharge Speculum Exam - Cervix: normal appearance of the cervix Bimanual Exam- Vagina AND Uterus: bladder normal to palpation, normal bimanual exam, uterus non-tender, other Bimanual Exam- Adnexa, other: adnexae non-tender Skin General: no rashes or lesions noted Neuro Motor: muscle tone normal throughout, no movement abnormalities noted Extrem General: normal to inspection, full ROM Assessment AND Plan Problems 1. Encounter for supervision of normal first in first trimester Z34.01 DONALD 02/20/19 [place] 2. 8 weeks gestation of Z3A.08 genetic and NTD screening options reviewed. will check with insurance coverage. Plan Patient oriented to practice and discussed care expectations and screenings. ACOG book offered to patient. Discussed routine and specially indicated labs if needed- patient consents to testing. see problem list details for plan information. Optional screening including carrier screenings, neural tube defect screening, sequential screening, and NIPT screening offered to patient and patient chose: considering, will check insurance coverage Orders Orders: Supplemental Info ACOG book given and patient encouraged to read about nutrition, exercise, weight gain, and food avoidance in . Coding Level of Care Code OB Routine Diagnoses Encounter for supervision of normal first in first trimester Z34.01 Normal : normal first Trimester: first trimester 8 weeks gestation of Z3A.08 Weeks of gestation: 8 weeks 07/13/18 1352 <Electronically signed by Samantha Castro MD> Date Samantha Castro MD Cosigner Signature: Date (if applicable) CC: CBC, EMPLOYEE Collected: 07/06/2018 Status: F Source: [place] 8:04 AM [facility] REPOSITORY TYPE CODE TESTS RESULT OUT OF RANGE REFERENCE UNITS LAB L100.1000 4.4-11.0 K/mm3 Normal WBC 6.4 LAB L100.1200 4.2-5.4 M/mm3 Normal RBC 4.48 LAB L100.1300 12.0-15.0 g/dl Normal HGB 13.3 LAB L100.1400 37-47 % Normal HCT 39.0 LAB L100.1500 81-99 fL Normal MCV 87.1 LAB L100.1600 27.0-32.0 pg Normal MCH 29.7 LAB L100.1700 32-36 g/gl Normal MCHC 34.1 LAB L100.1810 11.6-14.6 % Normal RDW CV 13.4 LAB L100.1820 35.1-43.9 fl Normal RDW SD 42.8 LAB L100.1900 150-450 K/mm3 Normal PLT 206 LAB L100.2000 6.2-12.0 fl Normal MPV 8.9 LAB L100.2110 47-70 % Normal NEUT% 59.7 LAB L100.2210 19-41 % Normal LY% 29.4 LAB L100.2310 0-10 % Normal MONO% 8.8 LAB L100.2410 0-5 % Normal EO% 1.7 LAB L100.2510 0-1 % Normal BASO% 0.2 LAB L100.2620 2.0-7.7 X10 3/uL Normal Absolute Neut 3.8 LAB L100.2720 0.83-4.51 X10 3/ul Normal Absolute Lymph 1.87 Performed By: #### L100.0200 #### [facility] [address] [facility] [place], [address] URINALYSIS, EMPLOYEE Collected: 07/06/2018 Status: F Source: [place] 8:04 AM [facility] REPOSITORY TYPE CODE TESTS RESULT OUT OF RANGE REFERENCE UNITS LAB L400.3000 Yellow COLOR Normal Yellow LAB L400.3050 Clear Normal CLARITY Clear LAB L400.3200 Normal mg/dl Normal GLUCOSE, UR Normal LAB L400.3300 Negative mg/dL Normal BILIRUBIN URINE Negative LAB L400.3400 Negative mg/dl Normal KETONE UR Negative LAB L400.3465 1.002-1.030 Normal SP.GR. DIPSTX 1.015 LAB L400.3550 5.0 - 8.0 pH UR Normal 6.5 LAB L400.3600 Negative mg/dl High PROT 15 DIPSTX LAB L400.3700 Normal mg/dl Normal UROBILI Normal LAB L400.3750 Negative Normal NITRITE UR Negative LAB L400.3780 Negative /ul Normal OCCULT BLOOD-UR Negative LAB L400.3800 Negative /ul High LEUK 25 ESTERASE Performed By: #### L400.0100 #### [facility] [address] [facility] [place], [place], [address] NICOTINE URINE DRUG Collected: 07/06/2018 Status: F Source: [place] SCREEN 8:04 AM [facility] REPOSITORY TYPE CODE TESTS RESULT OUT OF RANGE REFERENCE UNITS LAB L505.6250 TO BE Normal CONFIRMED Result Comment: CONFIRMATORY TESTING FOR ALL POSITIVE URINE DRUG SCREEN RESULTS WILL ONLY BE SENT OUT UPON PHYSICIAN ORDER. The results of Urine Drug Screen methods provide only preliminary analytical test results. A more specific alternate chemical method must be used in order to obtain a confirmed analytical result. Gas chromatography/mass spectrometery (GC/MS) is the preferred confirmatory method. Clinical consideration and professional judgement should be applied to any drug of abuse test result, particularly when preliminary positive results are used. LAB L505.6270 <200 ng/mL Normal COT DRG Negative SCREEN Result Comment: Cotinine is the first-stage metabolite of Nicotine. Performed By: #### L505.6240 #### [facility] [place], [address] EMPLOYEE PROFILE Collected: 07/06/2018 Status: F Source: [place] 8:04 AM [facility] REPOSITORY TYPE CODE TESTS RESULT OUT OF RANGE REFERENCE UNITS LAB L501.0100 74-106 mg/dL Normal GLU 87 Result Comment: Please note revised GLUCOSE reference range effective 2017. LAB L501.1000 7-18 mg/dL Normal BUN 8 LAB L501.1100 0.55-1.02 mg/dL Normal CREAT,SERUM 0.55 Result Comment: The validity of the calculated GFR AND GFRAA in patients over 70 years has not been determined. Clinical correlation is essential. LAB L501.1110 >60 mL/min Normal EST GFR 141 Result Comment: Non- GFR Calc LAB L501.1115 >60 mL/min Normal EST GFR - AA 171 Result Comment: GFR Calc LAB L501.1300 10-20 RATIO Normal BUN/CRE 14.5 LAB L501.1400 2.6-6.0 mg/dL Normal URIC 3.3 Result Comment: The drugs N-Acetylcysteine and Metamizole may falsely depress this assay. LAB L501.1500 6.4-8.2 g/dL Normal T PROT 7.3 LAB L501.1800 3.2-5.0 g/dL Normal ALB 3.7 LAB L501.1950 2.2-4.2 g/dL Normal GLOB 3.6 LAB L501.2000 0.9-2.4 RATIO Normal A/G 1.0 LAB L501.2200 8.5-10.1 mg/dL Normal CA 8.6 LAB L501.2300 2.5-4.9 mg/dL Normal PHOS 3.5 LAB L501.4100 15-37 U/L Normal AST 15 LAB L501.4305 45-117 U/L Normal ALK P 66 LAB L501.4405 13-56 U/L Normal ALT 20 LAB L501.4600 0.20-1.00 mg/dL Normal T BILI 0.50 LAB L501.4700 0.00-0.30 mg/dL Normal D BILI 0.14 LAB L501.4900 200 mg/dL Normal CHOL 153 Result Comment: <200 mg/dL Desirable 200-240 mg/dL Borderline >240 mg/dL High Risk LAB L501.5000 mg/dL Normal TRIG 67 Result Comment: The drugs N-Acetylcysteine and Metamizole may falsely depress this assay. Serum Triglycerides Reference Interval Normal <150 mg/dL Borderline high 150 - 199 mg/dL High 200 - 499 mg/dL Very High > or = 500 mg/dL LAB L501.5300 136-145 mmol/L Low NA 135 LAB L501.5600 3.5-5.1 mmol/L Normal K 4.0 LAB L501.5900 98-107 mmol/L Normal CL 104 LAB L501.6100 21.0-32.0 mmol/L Normal CO2 23.0 LAB L501.6200 5-15 Normal 8 GAP LAB L501.6400 mg/dL Normal HDL 65 Result Comment: The drugs N-Acetylcysteine and Metamizole may falsely depress this assay. Reference Range HDL <40 mg/dL Low HDL Cholesterol HDL >or= 60 mg/dL High HDL Cholesterol LAB L501.6475 Normal CHOL:HDL 2.40 LAB L501.6500 0-130 mg/dL Normal LDL 75 LAB L501.6600 5-40 mg/dL Normal VLDL 13 LAB L504.2610 84-246 U/L Normal LDH 127 Performed By: #### L500.2900 #### [facility] [address] [place], [place], [address] BUSINESS DEVELOPMENT PROFESSIONAL OFFICE VISIT Observed: 05/07/2018 Status: F Source: [place] REPORT 1:47 AM [facility] REPOSITORY [facility] [address] [place] [address] OFFICE VISIT Date of Service: 05/06/18 MR#: [id number] Acct: [id number] Name: ARTHUR HEADLEY Rep #: [id number] : 1990 Provider: Samantha Castro MD Age/Sex: 28/F Location: [facility] Status: Signed Intake Vital Signs05/06/18 Height 5 ft 2 in 05/06/18 Weight: 127 lb 2 oz 05/06/18 Body Mass Index (BMI) 23.2 05/06/18 Blood Pressure 95/66 Intake Visit Reasons: OVULATION ISSUES? Chief Complaint: Ovulation issues Monotype Keyboard Operator Required: No Is patient in pain?: No Allergies amoxicillin Allergy (Mild, Verified 05/06/18 10:22) Other Medications NK [NK] 05/06/18 [History Confirmed 05/06/18] Is last menstrual period known: Yes Last Menstral Period: 04/15/18 Post menopausal: No Patient : No : No PFSH Surgical History History of appendectomy (Acute) Family History Unknown Breast cancer Social History Smoking Status: Never smoker alcohol intake: current details: social substance use type: does not use caffeine: Yes what type of physical activity do you participate in: none seatbelt use: always do you feel safe at home: Yes additional social history: - [place] [employer] 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 she stopped control in december, she was on depo provera. she didn't have periods on the depo provera. she had a period in february/march, and then she started taking the ovulation tests and she hasn't had any positives. Female Reproductive History Last Menstral Period: 04/15/18 Pregancy History 0 Elective abortions Hx Para Spontaneous abortions ROS Const Constitutional: Reports system reviewed and no additional complaints, except as docu GI GI: Reports system reviewed and no additional complaints, except as docu : Reports system reviewed and no additional complaints, except as docu and metrorrhagia Exam Const General: cooperative, healthy appearing, comfortable, no acute distress, well developed Nutritional Appearance: average body habitus Orientation: alert [facility] Head: normal to inspection, normocephalic Ears: hearing grossly normal bilaterally, external ears normal Nose: external nose normal, nares normal Face and sinus: normal facial exam Neck Neck: normal visual inspection, trachea midline, no lymphadenopathy Thyroid: thyroid normal Resp Effort AND Inspection: normal respiratory effort Musc Other: gross motor intact no deficits, full bilateral strength Skin General: no rashes or lesions noted Neuro Motor: muscle tone normal throughout Assessment AND Plan Problems 1. Irregular menstrual cycle N92.6 Plan likely secondary to depo provera. check labs but exp managment until september, then if persistent would proceed with additional workup and clomid Orders Orders: Coding Level of Care Code Off vis,est,level 3 Diagnoses Irregular menstrual cycle N92.6 05/07/18 0147 <Electronically signed by Samantha Castro MD> Date Samantha Castro MD Cosigner Signature: Date (if applicable) CC: ALLERGIES ALLERGIES DATE TYPE / CODE NAME / CODE REACTION SEVERITY SOURCE 11/22/2018 Drug ibuprofen/F0 Hives [facility] Allergy/4160 [id number]([facility] [address]706(SNOMED ORM) Repository CT) 11/22/2018 Drug amoxicillin/ Other [facility] Allergy/4160 [id number]([facility] [address]1102(SNOMED XNORM) Repository CT) ENCOUNTERS ENCOUNTERS ADMIT/DISCHARGE ACCOUNT ADMITTING ENCOUNTER LOCATION SOURCE NUMBER CLASS 11/26/2018 [id number] Ambulatory [facility] ing:LAB Repository 11/22/2018 [id number] Ambulatory [facility] ing:OPUS Repository 11/22/2018/11/22/19 [id number] Ambulatory BMS[facility]:[place] [facility] Repository 11/05/2018/11/05/20 [id number] Ambulatory B[place]Building:[place] [address] [place] Repository 10/08/2018/10/08/20 [id number] Ambulatory BMSBuilding:[place] [facility] [place] Repository 09/20/2018 [id number] Ambulatory Building:[facility] Repository 09/06/2018/09/06/20 [id number] Ambulatory BMSBuilding:[place] [facility] [place] Repository 08/09/2018/08/09/20 [id number] Ambulatory BMSBuilding:B [place] [address] [facility] Repository 07/15/2018 [id number] Ambulatory [facility] ing:POLAB3 Repository 07/14/2018 [id number] Ambulatory [facility] ing:LAB Repository 07/13/2018 [id number] Ambulatory [facility] ing:LABSPEC Repository 07/13/2018/07/13/20 [id number] Ambulatory BMSBuilding:[place] [address] [facility] Repository 07/06/2018 [id number] Ambulatory [facility] ing:EMPH Repository 05/06/2018/05/06/20 [id number] Ambulatory BMSBuilding:[place] [address] [facility] Repository PAYERS PAYERS ENCOUNTER GUARANTOR PAYER SUBSCRIBER SOURCE 11/26/2018 ARTHUR Schwarz Primary Insurance:[facility] ARTHUR Karishma Ha [id number] [facility]: [facility] [id number], [place] Number: Repository [address]Unl: 330 [id number] [phone] () Date:5784-84-47BA [address] [address]EEBGIGOEK, [place] [address]OW: CHECK WEBSITE 11/26/2018 Secondary NOT GIVENUNK Ha Insurance:SELF PAY [facility] Number: Effective Repository Date:2018-11-26 11/22/2018 ARTHUR Schwarz Primary Insurance:[facility] ARTHUR Schwarz Ha [id number] N [facility]: [facility] [id number], [place] Number: Repository [address]Lag: 330 [id number] [phone] () Date:2639-86-46YB [address] [address]UGLJFAQDY, [place] [address]MV: CHECK WEBSITE 11/22/2018 Secondary NOT GIVENUNK [place] Insurance:SELF PAY [facility] Number: Effective Repository Date:2018-11-22 11/22/2018 ARTHUR Schwarz Primary Insurance:[facility] ARTHUR Karishma Ha [id number] N [facility] 3062-07-54GDPMcIntyre, [place] Number: Repository [address]Zxc: 330 [id number] [phone] (HP) Date:3354-94-83ZV [address] [address]QKXEWGNFF, [place] [address]ID: CHECK WEBSITE 11/22/2018 Secondary NOT GIVENUNK [place] Insurance:SELF PAY [facility] Hospital Number: Effective Repository Date:2018-11-22 11/05/2018 ARTHUR Schwarz Primary Insurance:[facility] ARTHUR Abrahamoster [id number] N [facility]: [facility] [id number], [place] Number: Repository [address]Ajg: 330 [id number] [phone] (HP) Date:5990-07-65QV [address] [address]LBTIDUTJH, [place] [address]HX: CHECK WEBSITE 11/05/2018 Secondary NOT GIVENUNK [place] Insurance:SELF PAY [facility] Number: Effective Repository Date:2018-11-05 10/08/2018 ARTHUR M Primary Insurance:[facility] ARTHUR Abrahamoster [id number] N [facility]: [facility] [id number], [place] Number: Repository [address]Yxy: 330 [id number] [phone] (HP) Date:2075-36-79IQ [address] [address]XAJSGAAYA, [place] [address]TC: CHECK WEBSITE 10/08/2018 Secondary NOT GIVENUNK Ha Insurance:SELF PAY [facility] Number: Effective Repository Date:2018-10-08 09/20/2018 ARTHUR Primary ARTHUR [facility]'s BUCKINGHAMDOB: Insurance:MEDICAL BUCKINGHAMDOB: [facility] [id number] F[facility] StreetYERBAPTIST HE[facility] Number: [address] [place], [place] [id number] [facility] [address]Dix: (330) Date: [place], [place] [phone] () [phone] 09/06/2018 ARTHUR Schwarz Primary Insurance:[facility] ARTHUR Schwarz Ha [id number] N [facility] BUCKINGHAMDOB: Community [facility] [id number], [place] Number: Repository [address]Nlc: 330 [id number] [phone] () Date:3670-19-47IU [address] [address]FVSRHVIYP, [place] [address]CF: CHECK WEBSITE 09/06/2018 Secondary NOT GIVENUNK [place] Insurance:SELF PAY [facility] Number: Effective Repository Date:2018-09-06 08/09/2018 ARTHUR M Primary Insurance:[facility] ARTHUR Schwarz Ha [id number] N [facility] BUCKINGHAMDOB: [facility] [id number], [place] Number: Repository [address]Bbi: 330 [id number] [phone] () Date:2086-93-25VW [address] [address]YKATDZMTC, [place] [address]WC: CHECK WEBSITE 08/09/2018 Secondary NOT GIVENUNK Ha Insurance:SELF PAY [facility] Number: Effective Repository Date:2018-08-09 07/15/2018 ARTHUR Schwarz Primary Insurance:[facility] ARTHUR Schwarz [place] [id number] N [facility] BUCKINGHAMDOB: [facility] [id number], [place] Number: Repository [address]Mfu: 330 [id number] [phone] () Date:7846-60-14JA [address] [address]YQNYQOGZU, [place] [address]CH: CHECK WEBSITE 07/15/2018 Secondary NOT GIVENUNK [place] Insurance:SELF PAY [facility] Number: Effective Repository Date:2018-07-15 07/14/2018 ARTHUR M Primary Insurance:[facility] ARTHUR Schwarz Ha [id number] N [facility] BUCKINGHAMDOB: [facility] [id number], [place] Number: Repository [address]Wso: 330 [id number] [phone] (HP) Date:2013-69-27RP [address] [address]SFPCJQGMT, [place] [address]GH: CHECK WEBSITE 07/14/2018 Secondary NOT GIVENUNK [place] Insurance:SELF PAY [facility] Number: Effective Repository Date:2018-07-14 07/13/2018 ARTHUR Schwarz Primary Insurance:[facility] ARTHUR Schwarz [place] [id number] N [facility] BUCKINGHAMDOB: Community [facility] [id number], [place] Number: Repository [address]Jpz: 330 [id number] [phone] (HP) Date:1145-81-82TN [address] [address]KQLBFCVZD, [place] [address]PI: CHECK WEBSITE 07/13/2018 Secondary NOT GIVENUNK [place] Insurance:SELF PAY [facility] Number: Effective Repository Date:2018-07-13 07/13/2018 ARTHUR Schwarz Primary Insurance:[facility] Lesley [place] [id number] N [facility] VarnerDOB: [facility] 7511-09-20MYUMcIntyre, [place] Number: Repository [address]Omd: 330 [id number] [phone] (HP) Date:9053-11-11KH [address] [address]RZRJBGKWQ, [place] [address]AV: CHECK WEBSITE 07/13/2018 Secondary NOT GIVENUNK Ha Insurance:SELF PAY [facility] Number: Effective Repository Date:2018-07-13 07/06/2018 ARTHUR GLENNY Primary NOT GIVENUNK Ha [id number] N Insurance:SELF PAY [place] Number: Effective Repository [address]Tkr: 330) Date:2018-07-06 [phone] ([phone] 05/06/2018 ARTHUR Schwarz Primary Insurance:[facility] ARTHUR Schwarz Ha [id number] N [facility] BUCKINGHAMDOB: Community GEYERS [facility] [id number] [place] Number: Repository [address]Hib: [phone]) [id number] [phone] () Date:9325-19-55CP [address] [address]XKTPGZPCS, [place] [address]CW: CHECK WEBSITE 05/06/2018 Secondary NOT GIVENUNK Ha Insurance:SELF PAY [facility] Number: Effective Repository Date:2018-05-06
== END ==
PROVIDERS: Family Provider Family Medicine; PCP Family Medicine; Referring Provider Nurse Practitioner Women's Health; Visit Provider Nurse Practitioner Women's Health
DX: O26.899 Other specified pregnancy related conditions, unspecified trimester (principal); R10.2 Pelvic and perineal pain; Z3A.00 Weeks of gestation of pregnancy not specified
CPT/HCPCS: 36415; 82950; 85025

== ENCOUNTER → 2019-01-05 13:38 | Outpatient (CLI) | payer OTHER, SELFPAY ==
[2019-01-05 11:18] VITALS: BMI 29.5
== END ==
PROVIDERS: Family Provider Family Medicine; PCP Family Medicine; Referring Provider Obstetrics & Gynecology; Visit Provider Obstetrics & Gynecology
DX: Z12.4 Encounter for screening for malignant neoplasm of cervix (principal); A64 Unspecified sexually transmitted disease

== ENCOUNTER → 2019-01-28 15:53 | Outpatient (CLI) | payer OTHER, SELFPAY ==
[2019-01-28 11:56] VITALS: BMI 29.5
== END ==
PROVIDERS: Referring Provider Obstetrics & Gynecology; Visit Provider Obstetrics & Gynecology
DX: Z34.90 Encounter for supervision of normal pregnancy, unspecified, unspecified trimester (principal)
CPT/HCPCS: 87081

== ENCOUNTER → 2019-02-16 11:50 | Outpatient (CLI) | payer OTHER, SELFPAY ==
[2019-02-15 08:28] VITALS: BMI 30.7
--- NOTE | 2019-02-16 11:53 | US_ITS ---
STUDY: SECOND AND THIRD TRIMESTER OBSTETRICAL ULTRASOUND - LIMITED REASON FOR EXAM: Female, 29 years old. Routine survey. LMP: 05/16/2018 PRIOR ULTRASOUND: 11/22/2018 TECHNIQUE: Transabdominal TECHNICAL QUALITY: Adequate. FINDINGS: There is a single intrauterine fetus. The fetus is in a cephalic presentation. There is demonstrated cardiac activity with a heart rate of 139 bpm. There is a normal amniotic fluid volume. The largest amniotic fluid pocket measures 5.0 cm. The amniotic fluid index (ADAM) is 10.1 cm. The placenta is posterior in location and is not low lying. There are Grade 2 placental changes. The cervix was not visualized. BIOMETRY: BPD: 9.5 cm: 38 weeks, 4 days HC: 35.1 cm: 41 weeks, 0 days AC: 36.1 cm: 40 weeks, 1 days FL: 7.8 cm: 40 weeks, 0 days Age by LMP: 39 weeks, 3 days. DONALD by LMP: 02/20/2019. age by prior US: 40 weeks, 3 days. DONALD by prior US: 02/13/2019. age by current US: 40 weeks, 0 days. DONALD by current US: 02/16/2019. Estimated weight: 3930 grams, +/- 574 grams, 82 percentile. Gender: Indeterminant US/OB Limited With Biometrics IMPRESSION: Single live intrauterine at 40 weeks, 0 days by current ultrasound with DONALD of 02/16/2019. Heart rate of 139 bpm. No suspicious sonographic findings, normal growth noted since the previous study. Electronically Signed: Krzysztof Sandhu MD at 13:22 EDT , Service support ,
== END ==
PROVIDERS: Family Provider Family Medicine; PCP Family Medicine; Referring Provider Obstetrics & Gynecology; Visit Provider Obstetrics & Gynecology
DX: O26.849 Uterine size-date discrepancy, unspecified trimester (principal); Z3A.00 Weeks of gestation of pregnancy not specified
CPT/HCPCS: 76816

== ENCOUNTER 2019-02-21 17:10 | Outpatient (CLI) | payer OTHER, SELFPAY ==
[2019-02-21 13:20] VITALS: BMI 30.7
[2019-02-21 17:27] VITALS: BMI 31.4
--- NOTE | 2019-03-02 03:41 | OB.TRI.PN ---
Progress Notes Date of Service: 02/21/19 Progress Note: Patient presented for contractions but had no cervical change heart tones 130s moderate variability reactive no decelerations category 1 tracing [place]: Irregular contractions no cervical change Assessment and plan false labor DC home labor precautions reactive NST
== END 2019-02-21 19:30 | disposition home or self-care (01) ==
LOC: WPOUT 17:19 → WP 17:20
PROVIDERS: Family Provider Family Medicine; PCP Family Medicine; Referring Provider Obstetrics & Gynecology; Visit Provider Obstetrics & Gynecology
DX: O47.9 False labor, unspecified (principal); Z3A.00 Weeks of gestation of pregnancy not specified
CPT/HCPCS: 59025; 59050; 99218; G0378

== ENCOUNTER 2019-02-22 04:45 | Inpatient (IN) | payer OTHER, SELFPAY ==
[2019-02-21 13:20] VITALS: BMI 30.7
[2019-02-21 17:27] VITALS: BMI 31.4
[2019-02-22 05:17] VITALS: BMI 31.1
[2019-02-22] MEDS: Lactated Ringers 1,000 ML 50 ML IV ×5 (05:19→19:20)
[2019-02-22 05:39] LABS: Absolute Lymphocyte Count 2.75 X10^3/ul (0.83-4.51); Absolute Neutrophil Count 6.2 X10^3/uL (2.0-7.7); Basophil# 0.02 X10^3/uL; Basophil% 0.2 % (0-1); Hematocrit 37.9 % (37-47); Hemoglobin 12.8 g/dl (12.0-15.0); Lymphocyte # 2.75 X10^3/ul (4.0); Lymphocyte % 27.7 % (19-41); Mean Corp Hgb Conc 33.8 g/gl (32-36); Mean Corpuscular Hgb 29.6 pg (27.0-32.0); Mean Corpuscular Volume 87.5 fL (81-99); Mean Platelet Vol. 10.3 fl (6.2-12.0); Monocyte# 0.85 X10^3/uL; Monocyte% 8.6 % (0-10); Neutrophil # 6.16 X10^3/uL (2.7-7.7); Platelet Count 193 K/mm3 (150-450); RBC Distribution Width CV 14.1 % (11.6-14.6); RBC Distribution Width SD 44.3 fl (35.1-43.9); Red Blood Count 4.33 M/mm3 (4.2-5.4); White Blood Count 9.9 K/mm3 (4.4-11.0)
[2019-02-22 05:41] LABS: POSITIVE COUNT NO; POSITIVE DIFFERENTIAL NO; POSITIVE MORPHOLOGY NO
[2019-02-22] MEDS: Oxytocin 30 units/NS 500 ml 30 UNITS/500 ML IV.SOLN IV (07:47)
[2019-02-22] MEDS: 0.9% Saline Lock 10 ML Syringe IV (13:26)
--- NOTE | 2019-02-22 15:54 | NURSING ---
anesthesia was in another epidural placement before responding to this pt room. came immediately when previous epidural was placed.
--- NOTE | 2019-02-22 17:24 | PCM.HPOB.BLA ---
- Problem List (1) SROM (spontaneous rupture of membranes) Status: Acute (2) Large for gestational age fetus Status: Acute Comment: IOL favorable cervix, discussed risk of induction vs exp managment. patient requests IOL. (3) Status: Acute Qualifiers: Comment: genetic and NTD screening, carrier screening declined. MFM anatomy US normal. (4) Supervision of normal Status: Acute Qualifiers: Comment: PRR DONALD 02/20/19 boy Kaid Enrique Churchill) History and Physical Date of Admission: 02/22/19 Intake Vital Signs 02/21/19 Body Mass Index (BMI) 30.7 02/21/19 Height 5 ft 1 in 02/21/19 Weight: 166 lb 8 oz 02/21/19 Body Mass Index (BMI) 31.4 02/21/19 Blood Pressure 100/72 Intake Visit Reasons: (OB) Chief Complaint: est ob Obstetrics Gynecology Physician Required: No Is patient in pain?: No Allergies amoxicillin Allergy (Mild, Verified 02/21/19 13:19) Other ibuprofen [From Motrin] Allergy (Mild, Verified 02/21/19 13:19) Hives Medications vitamin,calcium,cqcxqyfx-tcgh-ojgxl acid tablet 1 tab PO DAILY 07/13/18 [History Confirmed 02/21/19] compression stocking,knee high,long length,medium circ See Dose Instructions .ROUTE .MEDSUPPLY #12 ea 11/04/18 [Rx Confirmed 02/15/19] Last Menstral Period: 06/16/18 Zika: Zika virus screening: Negative : No PFSH PFSH Surgical History History of appendectomy (Acute) Family History Unknown Breast cancer Social History Smoking Status: Never smoker alcohol intake: current details: social substance use type: does not use caffeine: Yes what type of physical activity do you participate in: none seatbelt use: always do you feel safe at home: Yes additional social history: - [place] [employer] Patient works in [employer] Pregancy History 1 Elective abortions Hx Para Spontaneous abortions Hx # Term Pregnancies Ectopic pregnancies Hx # Pregnancies Multiple births # of living children HPI (OB): Details: ARTHUR ENRIQUEZ is a 29 year old who presents for SROM clear fluid at 5 am this morning. she is 3-4 cm dilated. s he denies regular ctx admits good fm no vb OB Visit DONALD Calculator Estimated Delivery Date 02/20/19 Based on LMP (certain) 05/16/18 Current WG 40w 1d Number 1 Expected Delivery Route/Plan Specific Issue/Plans flu vaccine: open enrollment at hospital tdap vaccine: given rhogam: na LARC form signed: donna labor support person: Enrique pain management: epidural cut cord/dad catch: maybe : yes PP control planned: OCP special requests: [] Initial Weight: 127 lb Date EGA Weight BP Urine Prot Glucose FHR FuHt Pres Mov CTX Dilation Effaced St Visit Note 07/13/18 8w 2d 127 lb 2 oz (+2 oz) 102/62 08/09/18 12w 1d 132 lb (+5 lb) 98/64 Negative Negative 150 09/06/18 16w 1d 135 lb 6 oz (+8 lb 6 oz) 108/62 Negative Negative 150 no vb cramping 10/08/18 20w 5d 140 lb (+13 lb) 92/60 Negative Negative 150 20 no vb lof good fm n oregualr ctx 11/05/18 24w 5d 144 lb (+17 lb) 110/70 Negative Negative 150 25 no vb lof good fm no regular ctx 11/22/18 27w 1d 151 lb (+24 lb) 102/70 Negative Negative 147 27 Active NO VB, LOF. Pain RLQ 8 last pm. 5 today. Nausea. No fever 12/07/18 29w 2d 156 lb (+29 lb) 102/68 Negative Negative 145 30 Active absent no vb lof good fm oregular ctx 12/21/18 31w 2d 155 lb (+28 lb) 98/70 140 31 Active absent no vb lof good fm no regular ctx 01/05/19 33w 3d 158 lb 3 oz (+31 lb 3 oz) 100/72 Negative Negative 140 32 35 Active absent no vb lof good fm no regular ctx no vb lof good fm no regualr ctx 01/18/19 35w 2d 158 lb 8 oz (+31 lb 8 oz) 96/68 Negative Negative 131 35 Cephalic Active absent doing well. No VB, LOF. Good FM. More pressure 01/28/19 36w 5d 160 lb 4 oz (+33 lb 4 oz) 100/74 Negative Negative 130 37 Cephalic Active absent no vb lof good fm no regular ctx, 02/03/19 37w 4d 162 lb (+35 lb) 108/72 Negative Negative 130 38 Cephalic Active absent 0.5 no vb lof good fm nore gular ctx 02/08/19 38w 2d 162 lb 4 oz (+35 lb 4 oz) 110/80 Negative Negative 135 39 Cephalic Active absent 1.5 4: 0 -3 no vb lof good fm no regular ctx 02/15/19 39w 2d 160 lb 2 oz (+33 lb 2 oz) 106/64 130 42 Cephalic Active absent 2.5 4: 0 -2 no vb lof good fm n oregular ctx. get growth us due to large for dates. membranes swept 02/21/19 40w 1d 166 lb 8 oz (+39 lb 8 oz) 100/72 130 42 Cephalic Active absent 3.5 7: 0 -1 no vb lof good fm no regular ctx. discussed IOL secondary to LGA. plan IOL tomorrow, membranes swept today again Visit Notes Visit Date: 02/21/19 ??no vb lof good fm no regular ctx. discussed IOL secondary to LGA. plan IOL tomorrow, membranes swept today again ??Samantha Lee MD on 02/21/19 Visit Date: 02/15/19 ??no vb lof good fm n oregular ctx. get growth us due to large for dates. membranes swept ??Samantha Lee MD on 02/15/19 Visit Date: 02/08/19 ??no vb lof good fm no regular ctx ??Samantha Lee MD on 02/08/19 Visit Date: 02/03/19 ??no vb lof good fm nore gular ctx ??Samantha Lee MD on 02/03/19 Visit Date: 01/28/19 ??no vb lof good fm no regular ctx, ??Samantha Lee MD on 01/28/19 Visit Date: 01/18/19 ??doing well. No VB, LOF. Good FM. More pressure ??YEYO José on 01/18/19 Visit Date: 01/05/19 ??no vb lof good fm no regualr ctx ??Samantha Lee MD on 01/05/19 ??no vb lof good fm no regular ctx ??Samantha Lee MD on 01/05/19 Visit Date: 12/21/18 ??no vb lof good fm no regular ctx ??Samantha Lee MD on 12/21/18 Visit Date: 12/07/18 ??no vb lof good fm oregular ctx ??Samantha Lee MD on 12/07/18 Visit Date: 11/22/18 ??NO VB, LOF. Pain RLQ 8 last pm. 5 today. Nausea. No fever ??Lissett Elias NP-Chano on 11/22/18 Visit Date: 11/05/18 ??no vb lof good fm no regular ctx ??Samantha Lee MD on 11/05/18 Visit Date: 10/08/18 ??no vb lof good fm n oregualr ctx ??Samantha Lee MD on 10/08/18 Visit Date: 09/06/18 ??no vb cramping ??Samantha Lee MD on 09/06/18 Visit Date: 08/09/18 ??No visit notes to display Visit Date: 07/13/18 ??No visit notes to display ACOG First Trimester First Trimester: Desire for , Alcohol, Tobacco Cessation, Illicit/Recreational Drug/Substance Use, Intimate Partner Violence, Barriers to care, Unstable Housing, Communication Barriers, Environmental/Work Hazards, Anticipated Course of Care, Toxoplasmosis Precations, Use of Any medications, Sexual activity, Exercise, Dental Care, Sauna/Hot tub use, Seat Belt use, Childbirth classes/Hospital facilities, , Travel, Indications for US and Screening for Aneuploidy Second Trimester Second Trimester: Signs and Symptoms of Labor, Selecting a care provider, Reproductive Life Planning, Care Planning, Tobacco Cessation, Depression/Anxiety and Intimate Partner Violence Third Trimester Third Trimester: Pain Management Plans, Labor support person(s), Immediate Larc, Movement Monitoring and Feeding Yes ; discussed Trial of Labor after Counseling or discussed Circumcision preference Diagnostics Diagnostics Labs Hct 35.8 % (37-47) L 11/26/18 Hgb 12.1 g/dl (12.0-15.0) 11/26/18 Obstetrics Ultrasound 02/16/19 Chlam trachomat DNA PCR Cancelled 01/05/19 N.gonorrhoeae DNA (PCR) Cancelled 01/05/19 Glucose 1 Hr 50 gm 102 mg/dL (70-140) 11/26/18 Details: HIV: Urine Culture: Sequential Screen: NIPT Screen: ROS Const Reports system reviewed and no additional complaints, except as docu Card Reports system reviewed and no additional complaints, except as docu Resp Reports system reviewed and no additional complaints, except as docu GI Reports system reviewed and no additional complaints, except as docu, Reports nausea Reports system reviewed and no additional complaints, except as docu Musc Reports system reviewed and no additional complaints, except as docu Exam Const General: cooperative, healthy appearing, comfortable, anxious HENMT Head: normal to inspection Nose: external nose normal Face and sinus: normal facial exam Neck Neck: normal visual inspection, full ROM, no lymphadenopathy Thyroid: thyroid normal Chest Chest palpation & inspection: normal inspection of the chest Resp Effort & Inspection: normal respiratory effort GI Inspection: normal to inspection Palpation: soft, other (gravid uterus) Other: vertex and appropriate size for gestational age Other: Cervical Exam: Extrem General: pedal edema Assessment & Plan Problems 1. Encounter for supervision of normal first in third trimester Z34.03 2. 40 weeks gestation of Z3A.40 3. Large for gestational age fetus IOL favorable cervix, discussed risk of induction vs exp managment. patient requests IOL. SROM admit IAL pit per protocol PRN epidural PRN gbs neg Orders Orders: POC Urinalysis 2 Dip (Clinic) Today Coding Level of Care Code OB Routine Diagnoses Encounter for supervision of normal first in third trimester Z34.03 ??Normal : normal first ??Trimester: third trimester 40 weeks gestation of Z3A.40 ??Weeks of gestation: 40 weeks Large for gestational age fetus UPDATE- I have seen the patient and performed any clinically relevant updates to the history and physical exam. Samantha Lee MD
--- NOTE | 2019-02-22 17:26 | PCM.PN.BLA ---
Progress Note fht 145s min-mod variability, had period of recurrent lates now resolved. positive scalp stimulation and reactive. arom clear fluid of forebag. continue pit per protocol. /-
[2019-02-22] MEDS: Ondansetron 4 MG/2 ML Vial IV (19:55)
[2019-02-22] MEDS: fentaNYL-bupivacaine (epidural) 100 ML BAG EPIDURAL (19:55)
[2019-02-22] MEDS: Acetaminophen 325 MG Tablet PO (19:55)
--- NOTE | 2019-02-22 23:44 | PCM.OPRPT ---
Problem List (1) SROM (spontaneous rupture of membranes) Status: Acute (2) Large for gestational age fetus Status: Acute Comment: IOL favorable cervix, discussed risk of induction vs exp managment. patient requests IOL. (3) Status: Acute Qualifiers: Comment: genetic and NTD screening, carrier screening declined. MFM anatomy US normal. (4) Supervision of normal Status: Acute Qualifiers: Comment: PRR DONALD 02/20/19 boy Kaid Enrique Churchill) Vaginal Delivery Maternal Presentation: Active Labor ial 3 cm srom clear fluid Method of Induction: Pitocin Amniotic Membrane Rupture Type: Spontaneous at home Amniotic Fluid Description: Clear Final DONALD: 02/20/19 Gestational age: 40 Weeks and 3 Days Pre-Operative Diagnosis: srom Post-Operative Diagnosis: same Surgery/ Procedure Performed: Spontaneous Vaginal Delivery Type of Anesthesia: Epidural Description of Procedure: Patient began pushing and delivered the head in the ATTILA presentation. The head was delivered atraumatically a tight nuchal cord x1 was identified and the was delivered through it. The anterior and posterior shoulders delivered without complication followed by the rest of the and the was placed on the maternal abdomen. Delayed cord clamping was employed for approximately 60 seconds. Cord was clamped and cut and gentle traction was applied to the cord and the placenta delivered spontaneously immediately following it was noted to be intact with three-vessel cord. The perineum and vagina were inspected and noted to have a second-degree perineal laceration that was repaired in the usual fashion with 3-0 Vicryl Rapide until the suture broke off from the needle and multiple x-rays were obtained and a small amount of dissection into the right bulbocavernosus muscle was performed to identify and remove the missing needle. This was done without complication. The rest of the repair was finished without complication. Anal sphincter capsule was noted to be intact.. EBL was 400 cc. Patient and infant tolerated delivery well. Presentation: ATTILA Placental Delivery Description: Spontaneous Placenta Disposition: [facility] Cord Vessel Description: 3 Vessels Cord Entanglement: Around neck x 1, tight Estimated Blood Loss: 400 A gender: Male Episiotomy Description: None Laceration: Perineal Extension/lac, 2nd degree Medications given after delivery: IV Pitocin Complications: None
[2019-02-23] MEDS: Oxytocin 30 units/NS 500 ml 30 UNITS/500 ML IV.SOLN 334 UNITS IV (00:23)
--- NOTE | 2019-02-23 00:37 | RAD_ITS ---
STUDY: X-RAY - PELVIS REASON FOR EXAM: Female, 29 years old. Obstetric doctors looking for foreign object (suture needle). TECHNIQUE: 6 views of the pelvis were obtained. COMPARISON: None. FINDINGS: There is metallic density, consistent with a curved suture needle, which projects over the medial right buttock. There is a non-specific bowel gas pattern. Normal visualized soft tissue structures. Normal bilateral iliac wings, sacroiliac joints and visualized sacrum. Normal visualized bilateral superior and inferior pubic rami. Normal pubic symphysis. Normal ischial tuberosities. Normal visualized right femoral head. Normal right acetabulum. Normal right hip joint. Normal visualized left femoral head. Normal left acetabulum. Normal left hip joint. RAD/Pelvis 1 or 2 Views IMPRESSION: Suture needle projects over the region of the mesial right buttock. Electronically Signed: Aki Eddy MD at 1:36 EDT , Service support ,
[2019-02-23] MEDS: Oxytocin 30 units/NS 500 ml 30 UNITS/500 ML IV.SOLN 167 UNITS IV (00:53)
--- NOTE | 2019-02-23 01:57 | NURSING ---
called by this RN. updated pt reporting severe neck pain 06/18, new orders to d/c naproxen, 30mg IV toradol q6 hrs for pain. provider also updated on elevated temp and recent bp's and HR plan to recheck temp 30 mins after last checked
[2019-02-23] MEDS: 0.9% Saline Lock 10 ML Syringe IV ×4 (02:03→23:26)
[2019-02-23] MEDS: Ketorolac 30 MG/ML Syringe IV ×4 (02:03→23:26)
[2019-02-23 06:22] VITALS: BP 95/61; PULSE 98; RESP 18; TEMP 36.8
--- NOTE | 2019-02-23 07:51 | NURSING ---
Epidural catheter removed without difficulty. Blue tip intact.
[2019-02-23 09:24] VITALS: BP 109/79; PULSE 95; RESP 18; TEMP 36.9; O2SAT 100
[2019-02-23 12:11] VITALS: BP 93/62; PULSE 98; RESP 18; TEMP 37; O2SAT 100
[2019-02-23] MEDS: Acetaminophen 500 MG Tablet 1000 MG PO (14:57)
[2019-02-23 16:58] VITALS: BP 104/61; PULSE 98; RESP 18; TEMP 37.2; O2SAT 98
[2019-02-23 21:04] VITALS: BP 124/77; PULSE 93; RESP 18; TEMP 36.7; O2SAT 98
[2019-02-23 23:34] VITALS: BP 101/68; PULSE 99; RESP 18; TEMP 36.8; O2SAT 100
[2019-02-24 02:50] VITALS: BP 100/68; PULSE 92; RESP 16; TEMP 36.2; O2SAT 95
[2019-02-24] MEDS: Acetaminophen 500 MG Tablet 1000 MG PO (05:11)
--- NOTE | 2019-02-24 07:33 | PCM.PN.OB ---
Patient Problems: Active and Suspected Problems (Last Reviewed 02/21/19 @ 13:19 by Jacque Villareal) SROM (spontaneous rupture of membranes) (Acute) Subjective: doing well no complaints pain controlled no CP SOB N V ambulating well tolerating po lochia moderate, going well - Physical Exam General: Alert, Oriented x3 Abdomen: Soft, Non Tender, - - FF below U Vital Signs Temp Pulse Resp BP Pulse Ox 97.2 F L 92 16 100/68 95 02/24/19 02:50 02/24/19 02:50 02/24/19 02:50 02/24/19 02:50 02/24/19 02:50 Oxygen Delivery Method Room Air Weight: 164 lb 14.492 oz Body Mass Index (BMI) 31.1 Intake and Output for Last 24 Hours 02/22/19 02/23/19 02/24/19 23:59 23:59 23:59 Intake Total 3696 / 3696 1712 / 1712 Output Total 950 / 950 1600 / 1600 Balance 2746 / 2746 112 / 112 Medical Necessity - Tobacco Use Smoking Status: Never smoker Assessment/Plan All Active Problems (Last Reviewed 02/21/19 @ 13:19 by Jacque Villareal) SROM (spontaneous rupture of membranes) (Acute) Large for gestational age fetus (Acute) Supervision of normal (Acute) (Acute) Irregular menstrual cycle (Resolved) s/p PPD # 1 1. routine post delivery care 2. breast feeding- support given 3. rh positive 4. rubella immune 5. home today
--- NOTE | 2019-02-24 07:34 | PCM.DCVAG ---
Additional Instructions: If you experience any of the following, contact your healthcare provider. Bleeding that soaks a pad every hour for 2 hours Fever 100.4 or higher Unrelieved incision or abdominal pain Swelling, redness, discharge or bleeding from your incision or episiotomy site Your incision begins to separate Problems urinating (including inability to urinate or burning while urinating). Visual changes Severe headache Flu-like symptoms Pain or redness in one of both of your breasts Pain, warmth, tenderness or swelling in your legs, especially the calf area Frequent nausea and vomiting Symptoms of depression or anxiety If you experience any of the following, call 911 or go to the nearest Emergency Room. Chest pain Problems breathing Seizure activity Partial or complete paralysis of a body part, slurred speech, weakness or drooping of the face, or a sudden inability to walk or hold your balance Allergies/Adverse Reactions: Allergies amoxicillin Allergy (Mild, Verified 02/22/19 06:11) Other ibuprofen [From Motrin] Allergy (Mild, Verified 02/22/19 06:11) Hives Medications to take at Discharge vitamin,calcium,zhikevnb-vtur-hnwkq acid tablet 1 tab PO DAILY 07/13/18 compression stocking,knee high,long length,medium circ See Dose Instructions .ROUTE .MEDSUPPLY #12 ea 11/04/18 Primary Care Physician: Ana Purcell MD [Primary Care Provider] - Test Results: Test results from this visit will be discussed in further detail at your follow-up appointment, if applicable.
--- NOTE | 2019-02-24 07:35 | DCINST_ITS ---
Additional Instructions: If you experience any of the following, contact your healthcare provider. * Bleeding that soaks a pad every hour for 2 hours * Fever 100.4 or higher * Unrelieved incision or abdominal pain * Swelling, redness, discharge or bleeding from your incision or episiotomy site * Your incision begins to separate * Problems urinating (including inability to urinate or burning while urinating). * Visual changes * Severe headache * Flu-like symptoms * Pain or redness in one of both of your breasts * Pain, warmth, tenderness or swelling in your legs, especially the calf area * Frequent nausea and vomiting * Symptoms of depression or anxiety If you experience any of the following, call 911 or go to the nearest Emergency Room. * Chest pain * Problems breathing * Seizure activity * Partial or complete paralysis of a body part, slurred speech, weakness or drooping of the face, or a sudden inability to walk or hold your balance Allergies/Adverse Reactions: Allergies amoxicillin Allergy (Mild, Verified 02/22/19 06:11) Other ibuprofen [From Motrin] Allergy (Mild, Verified 02/22/19 06:11) Hives Medications to take at Discharge vitamin,calcium,ftaixicb-bdyj-rjjcb acid tablet 1 tab PO DAILY 07/13/18 compression stocking,knee high,long length,medium circ See Dose Instructions .ROUTE .MEDSUPPLY #12 ea 11/04/18 Primary Care Physician: Ana Purcell MD [Primary Care Provider] - Test Results: Test results from this visit will be discussed in further detail at your follow- up appointment, if applicable.
[2019-02-24] MEDS: Ketorolac 30 MG/ML Syringe IV (08:11)
[2019-02-24] MEDS: 0.9% Saline Lock 10 ML Syringe IV (08:11)
[2019-02-24 10:00] VITALS: BP 106/64; PULSE 94; RESP 16; TEMP 36.1; O2SAT 100
[2019-02-24 11:55] VITALS: BP 109/73; PULSE 81; RESP 18; TEMP 36.4; O2SAT 97
[2019-02-24] MEDS: oxyCODONE 5 MG Tablet PO ×2 (11:59→14:00)
[2019-02-24] MEDS: Senna/Docusate Sodium 1 Tablet PO (11:59)
[2019-02-24 15:32] VITALS: BP 106/63; PULSE 96; RESP 18; TEMP 36.4
[2019-02-24 15:51] VITALS: BP 106/63; PULSE 96; RESP 18; TEMP 36.4
== END 2019-02-24 15:45 | disposition home or self-care (01) | DRG 807 ==
PROVIDERS: Admitting Provider Obstetrics & Gynecology; Family Provider Family Medicine; PCP Family Medicine; Referring Provider Obstetrics & Gynecology; Visit Provider Obstetrics & Gynecology
DX: O70.1 Second degree perineal laceration during delivery (principal); Z37.0 Single live birth; O36.63X0 Maternal care for excessive fetal growth, third trimester, not applicable or unspecified; O69.1XX0 Labor and delivery complicated by cord around neck, with compression, not applicable or unspecified; Z3A.40 40 weeks gestation of pregnancy
CPT/HCPCS: 59025; 59050; 72170; 85025; 86850; 86900; 99218; J7120; A4216; G0378; J2405

== ENCOUNTER 2019-07-25 16:30 | Outpatient (RCR) | payer OTHER, SELFPAY ==
[2019-01-18 09:13] VITALS: BMI 29.5
--- NOTE | 2019-01-31 15:05 | MASS.EVAL ---
Massage Therapy Evaluation: Initial Evaluation Date: 01/26/2019 /Age: 04 1990, 28 Diagnosis: related back pain Medications: vitamins Due Date: Assessment: Little is a good candidate for massage at this time. Treatment should help decrease her hip and back pain as well as improve circulation in her upper extremities. Plan: Little is to be seen on an as needed basis for a total of 10 visits. Noa Densie LMT
--- NOTE | 2019-01-31 15:08 | MASS.EVAL_ITS ---
Massage Therapy Evaluation: Initial Evaluation Date: 01/26/2019 /Age: 04 1990, 28 Diagnosis: related back pain Medications: vitamins Due Date: Assessment: Little is a good candidate for massage at this time. Treatment should help decrease her hip and back pain as well as improve circulation in her upper ex tremities. Plan: Little is to be seen on an as needed basis for a total of 10 visits. Noa Denise LMT
--- NOTE | 2019-10-19 11:03 | DS.PCM_ITS ---
Massage Therapy Discharge Summary: Initial Evaluation Date: 01/26/19 Diagnosis: Back Pain d/t No. of Visits: Date of last visit: 07/25/2019 Goals: Decreased LBP Decreased pain in hands This patient is being discharged from our care at the [facility]. Thank you, Noa Denise LMT
== END 2019-07-25 19:00 | disposition home or self-care (01) ==
LOC: MASS 16:30
PROVIDERS: Family Provider Family Medicine; PCP Family Medicine; Referring Provider Family Medicine; Visit Provider Family Medicine
DX: M54.9 Dorsalgia, unspecified (principal); Z33.1 Pregnant state, incidental
CPT/HCPCS: 97124

== ENCOUNTER → 2020-08-13 11:59 | Outpatient (CLI) | payer OTHER, SELFPAY ==
[2019-11-26 11:03] VITALS: BMI 31.1
--- NOTE | 2020-08-13 12:01 | US_ITS ---
HISTORY: Nausea. Cramping. Cramping on the left side is worse. LMP 06/29/2020. 74 images and one cine clip. Comparison study is not available from this . Findings: Cine clip demonstrates a gestational sac within the uterine fundus, a yolk sac, and an embryo. Some subchorionic hemorrhage is also suspected. Endovaginal imaging only. The gestational sac contains a yolk sac and an embryo. Subchorionic hemorrhage is demonstrated. Myometrium is homogeneous. The cervix is closed. The right ovary measures 1.7 x 2.4 x 1.6 cm. Color and pulsed with Doppler imaging demonstrate arterial flow to right ovarian parenchyma. The left ovary measures 2.6 x 2 x 1.9 cm. Color Doppler imaging is nondiagnostic for flow to the left ovary. Pulsed with Doppler imaging demonstrates arterial flow to left ovarian parenchyma. Mean sac diameter is 16 mm. In a yolk sac diameter is 3 mm. Mahtomedi-rump length is 5 mm. heart motion is detected by M-mode imaging at 108 bpm. US/Init OB < 14Wks US IMPRESSION: SLIUP. EGA 6 W-2 D. Small subchorionic hemorrhage. DONALD 04/06/2021. at 0612 Reported and signed by: Pancho Adrian MD Electronically Signed: Pancho Adrian MD at 6:11 EDT Tel , Service support ,
== END ==
PROVIDERS: PCP Family Medicine; Referring Provider Obstetrics & Gynecology; Visit Provider Obstetrics & Gynecology
DX: O20.0 Threatened abortion (principal); Z3A.00 Weeks of gestation of pregnancy not specified
CPT/HCPCS: 76801

== ENCOUNTER 2020-09-17 12:17 | Outpatient (RCR) | payer OTHER, SELFPAY ==
[2019-11-26 11:03] VITALS: BMI 31.1
[2020-08-23 14:09] VITALS: BMI 24.9
== END 2020-09-17 19:00 | disposition home or self-care (01) ==
LOC: MASS 12:17
PROVIDERS: PCP Family Medicine; Referring Provider Family Medicine; Visit Provider Family Medicine
DX: G43.909 Migraine, unspecified, not intractable, without status migrainosus (principal)
CPT/HCPCS: 97124

== ENCOUNTER → 2020-09-18 16:23 | Outpatient (CLI) | payer OTHER, SELFPAY ==
[2020-09-17 14:08] VITALS: BMI 25.7
[2020-09-18 17:00] LABS: Absolute Lymphocyte Count 2.05 X10^3/uL (0.83-4.51); Absolute Neutrophil Count 4.7 X10^3/uL (2.0-7.7); Basophil# 0.02 X10^3/uL; Basophil% 0.3 % (0-1); Eosinophil# 0.12 X10^3/uL; Eosinophils% 1.6 % (0-5); Hematocrit 35.6 % (37-47); Lymphocyte # 2.05 X10^3/ul (4.0); Lymphocyte % 27.6 % (19-41); Mean Corp Hgb Conc 33.7 g/dL (32-36); Mean Corpuscular Hgb 29.8 pg (27.0-32.0); Mean Corpuscular Volume 88.3 fL (81-99); Monocyte% 6.7 % (0-10); NRBC Flagged by Analyzer 0 % (0-5); Neutrophil # 4.72 X10^3/uL (2.7-7.7); Neutrophil % 63.5 % (47-70); Platelet Count 241 K/mm3 (150-450); RBC Distribution Width CV 13.2 % (11.6-14.6); RBC Distribution Width SD 42.6 fl (35.1-43.9); Red Blood Count 4.03 M/mm3 (4.2-5.4); White Blood Count 7.4 K/mm3 (4.4-11.0)
[2020-09-18 17:31] LABS: Amphetamine Urine VISTA NEGATIVE (<1000 ng/mL); Barbiturate Urine VISTA NEGATIVE (< 200 ng/mL); Benzodiazepine Urine VISTA NEGATIVE (< 200 ng/mL); Cocaine Urine VISTA NEGATIVE (< 300 ng/mL); Ecstacy Urine VISTA NEGATIVE (< 500 ng/mL); Methadone Urine VISTA NEGATIVE (< 300 ng/mL); PCP Urine VISTA NEGATIVE (< 25 ng/mL); THC Urine VISTA NEGATIVE (< 50 ng/mL); Vista UDS pH Range 5
[2020-09-19 08:47] LABS: HIV - WCH Non-Reactive (Nonreactive); Hepatitis B Surface Antigen Non-Reactive (Nonreactive); Hepatitis C Antibody Non-Reactive (Nonreactive)
[2020-09-20 01:21] LABS: Rapid Plasmin Reagin (RPR) NONREACTIVE (NONREACTIVE)
== END ==
PROVIDERS: PCP Family Medicine; Visit Provider Obstetrics & Gynecology
DX: Z34.90 Encounter for supervision of normal pregnancy, unspecified, unspecified trimester (principal)
CPT/HCPCS: 36415; 80307; 85025; 86592; 86703; 86803; 86850; 86900; 86901; 87086; 87088; 87340

== ENCOUNTER 2020-10-17 19:10 | Inpatient (IN) | payer OTHER, SELFPAY ==
[2020-10-17 09:23] VITALS: BMI 26.2
[2020-10-17 19:18] VITALS: BMI 25.2
[2020-10-17 19:28] VITALS: BP 103/68; PULSE 93
[2020-10-17 19:30] VITALS: TEMP 36.6
[2020-10-17] MEDS: Lactated Ringers 1,000 ML 50 ML IV (19:35)
[2020-10-17 20:07] LABS: Absolute Lymphocyte Count 2.42 X10^3/uL (0.83-4.51); Absolute Neutrophil Count 3.9 X10^3/uL (2.0-7.7); Basophil# 0.02 X10^3/uL; Basophil% 0.3 % (0-1); Eosinophil# 0.11 X10^3/uL; Eosinophils% 1.5 % (0-5); Hemoglobin 12.4 g/dL (12.0-15.0); Lymphocyte # 2.42 X10^3/ul (4.0); Lymphocyte % 33.8 % (19-41); Mean Corp Hgb Conc 34.4 g/dL (32-36); Mean Corpuscular Hgb 30.8 pg (27.0-32.0); Mean Corpuscular Volume 89.3 fL (81-99); Mean Platelet Vol. 9.5 fl (6.2-12.0); Monocyte# 0.69 X10^3/uL; Monocyte% 9.6 % (0-10); NRBC Flagged by Analyzer 0 % (0-5); Neutrophil # 3.91 X10^3/uL (2.7-7.7); Neutrophil % 54.5 % (47-70); Platelet Count 264 K/mm3 (150-450); RBC Distribution Width CV 13.6 % (11.6-14.6); RBC Distribution Width SD 44.7 fl (35.1-43.9); Red Blood Count 4.03 M/mm3 (4.2-5.4); White Blood Count 7.2 K/mm3 (4.4-11.0)
[2020-10-17] MEDS: miSOPROStol 200 MCG Tablet 600 MCG VAGINAL (20:42)
[2020-10-17 21:11] LABS: Hemoglobin A1c 4.9 % (3.8-5.6)
[2020-10-17] MEDS: Acetaminophen 500 MG Tablet PO (21:18)
[2020-10-17 22:06] LABS: Thyroid Stim Hormone (TSH) 1.38 uIU/mL (0.358-3.74)
[2020-10-18] VITALS (19 sets, daily range): BP systolic 92–107; BP diastolic 58–74; PULSE 72–100; RESP 16; TEMP 36.6–37.4; O2SAT 96–98
[2020-10-18] MEDS: miSOPROStol 200 MCG Tablet 400 MCG VAGINAL ×2 (00:42→04:38)
[2020-10-18] MEDS: 0.9% Saline Lock 10 ML Syringe IV ×3 (01:40→08:25)
[2020-10-18] MEDS: HYDROmorphone 0.5 MG/0.5 ML SYRINGE IV ×3 (01:41→05:49)
--- NOTE | 2020-10-18 05:50 | PCM.HPOB.BLA ---
- Problem List (1) Miscarriage Status: Acute Comment: No evidence of heart tones on ultrasound 10/17 with no doppler flow present. Measuring 12w5d. Offered formal US, but patient declines. Discussed management options including D&E with MFM vs. induction. Needs time to consider options. Patient to call back after making decision. (2) Status: Acute Comment: declines genetic, carrier and NTD (3) Supervision of other normal Status: Acute Comment: DONALD 04/05/2021 PC: Kian Spouse: Enrique Churchill) History and Physical Date of Admission: 10/17/20 Intake Vital Signs 10/17/20 Height 5 ft 1 in 10/17/20 Weight: 139 lb 2 oz 10/17/20 BMI 26.2 10/17/20 BP 100/70 Intake Visit Reasons: 16 WK OB Enrollment Counselor Required: No Is patient in pain?: No Allergies amoxicillin Allergy (Mild, Verified 10/17/20 09:23) Other ibuprofen [From Motrin] Allergy (Mild, Verified 10/17/20 09:23) Hives Medications promethazine 12.5 mg tablet 12.5 mg PO TID #60 tab 08/13/20 [Rx Confirmed 10/17/20] multivitamin no.47-iron fum 27 mg-folate no.1 1 mg-dha 300 mg capsule cap PO 08/14/20 [History Confirmed 10/17/20] hydrocortisone See Rx Instructions .ROUTE .COMPLEX #1 ea 09/12/20 [Rx Confirmed 10/17/20] ondansetron 4 mg disintegrating tablet 4 mg PO Q4H PRN #60 tab 09/25/20 [Rx Confirmed 10/17/20] Last Menstral Period: 06/29/20 Zika: Zika virus screening: Negative : No PFSH PFSH Medical History Gave to child recently (Acute) Hemorrhoids (Resolved) Surgical History History of appendectomy (Resolved) Family History Unknown Breast cancer Social History (Updated 10/17/20 @ 13:[address] 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 Date Name GA/Weeks Outcome Route Bth Weight Infant Gen Labor Lgth Anesthesia Del Locatn Provider FOB 02/23/19 Kaid 40 live - full term 8lbs 8oz Male 18 hours epidural [employer] JOSE J lindsey Delivery Date: 02/23/19 2 DEGREE LAC VillarealJacque HPI 16 WK OB: Details: ARTHUR ENRIQUEZ is a 30 year old who initially presented for visit that upon evaluation had a demise. No color flow or cardiac activity were seen, and baby was measuring 3 weeks behind. she denies any bleeding or cramping. OB Visit DONALD Calculator Estimated Delivery Date Method Current WG Current Estimate 04/05/21 LMP (Certain) 15w 5d Other Estimates 04/06/21 Ultrasound #1 15w 4d Expected Delivery Route/Plan Labor Preferences- CB/BF classes: [] labor support person: [] labor intervention preferences: [] pain management options preferred: [] cut cord/dad catch: [] : [] PP control planned: [] discussed possible routes of delivery and associated risks: [] special requests: [] Specific Issue/Plans flu vaccine: given at work tdap vaccine: [] rhogam: [] LARC form signed: [] Problem list reviewed and updated with the most current plan of care details and appropriate orders placed. Relevant counseling for the gestational age provided. Continue routine care and follow up unless otherwise noted in visit notes/problem list details Initial Weight: Not Recorded Date EGA Weight BP Urine Prot Glucose FHR FuHt Pres Dilation Effaced St Visit Note 08/23/20 7w 6d 132 lb 100/70 150 CRL cons with LMP 09/17/20 11w 3d 136 lb 106/62 Negative Negative 170 SM_ no vb cramping doing well 10/17/20 15w 5d 139 lb 2 oz 100/70 Negative Negative GP - no heart tones noted on ultrasound. No evidence of doppler flow. Fetus measuring 12w 5d. ACOG First Trimester First Trimester: Desire for , Alcohol, Tobacco Cessation, Illicit/Recreational Drug/Substance Use, Intimate Partner Violence, Barriers to care, Unstable Housing, Communication Barriers, Environmental/Work Hazards, Anticipated Course of Care, Toxoplasmosis Precations, Use of Any medications, Sexual activity, Exercise, Dental Care, Sauna/Hot tub use, Seat Belt use, Childbirth classes/Hospital facilities, , Travel, Indications for US and Screening for Aneuploidy Second Trimester Second Trimester: Signs and Symptoms of Labor, Selecting a care provider, Reproductive Life Planning, Care Planning, Tobacco Cessation, Depression/Anxiety and Intimate Partner Violence Third Trimester Third Trimester: Pain Management Plans, Labor support person(s), Immediate Larc, Movement Monitoring and Infant Feeding Yes ; discussed Trial of Labor after Counseling or discussed Circumcision preference Diagnostics Diagnostics Diagnostics Blood Type A POSITIVE 09/18/20 Antibody Screen NEGATIVE 09/18/20 HIV 1&2 Antibody Non-Reactive (Nonreactive) 09/18/20 Hgb 12.0 g/dL (12.0-15.0) 09/18/20 Hct 35.6 % (37-47) L 09/18/20 RPR NONREACTIVE (NONREACTIVE) 09/18/20 Details: HIV: Urine Culture: Sequential Screen: NIPT Screen: ROS Const Reports system reviewed and no additional complaints, except as docu Eyes Reports system reviewed and no additional complaints, except as docu ENT Reports system reviewed and no additional complaints, except as docu Card Reports system reviewed and no additional complaints, except as docu Resp Reports system reviewed and no additional complaints, except as docu GI Reports system reviewed and no additional complaints, except as docu Reports system reviewed and no additional complaints, except as docu, Denies abnormal vaginal bleeding, Denies painful urination, Denies pelvic pain, Denies vaginal discharge, Denies vaginal odor, Denies vaginal itching Musc Reports system reviewed and no additional complaints, except as docu Skin/Breast Reports system reviewed and no additional complaints, except as docu Neuro Yes system reviewed and no additional complaints, except as docu Psych Reports system reviewed and no additional complaints, except as docu Exam Const General: cooperative, healthy appearing, comfortable, no acute distress, well developed, well groomed Nutritional Appearance: average body habitus, well nourished Orientation: alert, awake, oriented x3 HENMT Head: normal to inspection, normocephalic, atraumatic Eyes Pupils: PERRL, accommodation normal Resp Effort & Inspection: normal respiratory effort, able to speak in complete sentences, symmetric chest movement Cardio Rate: regular rate GI Palpation: soft, no guarding, no masses, nontender Skin General: no rashes or lesions noted, elasticity normal, turgor normal Neuro General: alert, awake, oriented x3 Cranial Nerves: CN's II-XI intact bilaterally, sense of smell intact, PERRL, accommodation normal, EOM intact bilaterally Speech: speech normal Gait: normal gait Psych Appearance: grossly normal, well kempt Mental Status: mental status grossly normal Mood: congruent mood Affect: normal affect Speech and Movement: speech and movement normal Attitude: cooperative Thought Process: normal Thought Content: normal Judgment: judgment good Results POC Urinalysis 2 Dip (Clinic) Office Urine Glucose Negative Last Edit by Ana Shaffer on 10/17/20 09:31 Office Urine Protein Negative Last Edit by Ana Shaffer on 10/17/20 09:31 Assessment & Plan Problems 1. Supervision of other normal Z34.80 DONALD 04/05/2021 PC: Kian Spouse: Enrique (Reyes) 2. Z34.90 declines genetic, carrier and NTD 3. Miscarriage O03.9 No evidence of heart tones on ultrasound 10/17 with no doppler flow present. Measuring 12w5d. Offered formal US, but patient declines. Discussed management options including D&E with MFM vs. induction. Needs time to consider options. Patient to call back after making decision. Plan Discussed findings of demise. No evidence of cardiac activity confirmed with absence of doppler flow. Discussed that there is no way to predict this and nothing that she could have done to prevent it. Discussed that she did not do anything to cause this. Discussed next steps including induction vs. surgical management. patient decided on IOL. plan IOL with cytotec, discussed risk of possible need for a d and c for retained placenta . Orders Orders: POC Urinalysis 2 Dip (Clinic) Today Coding Level of Care Code Off vis,est,level 3 Diagnoses Supervision of other normal Z34.80 Z34.90 Miscarriage O03.9
--- NOTE | 2020-10-18 05:54 | PLAC_PTH ---
PATIENT: ARTHUR ENRIQUEZ LOC: [facility] U#:[id number] AGE/SX: 30/F ROOM: WP021 RE10/17/[address]: Dr. Samantha Lee MD : 1990 BED: 1 DIS: 10/18/2020 SPEC #: [id number] RECD: 10/18/20 07:15 STATUS: RON SALAZAR #: [id number] JEY: 10/18/20 05:[address]: Samantha Lee DEPT: SURGICAL PATHOLOGY RECD BY: July Aquino ENTERED: 10/18/20 07:59 SP TYPE: PLACENTA OTHR DR: Dr. Ana Purcell MD Tissues: Placenta, NOS Procedures: Surgery Specimen Level V HEADER OPERATION: Vaginal delivery PRE-OP DIAGNOSIS: demise, 14-week loss TISSUE SUBMITTED: Placenta MICROSCOPIC DIAGNOSIS Rhodes placenta (67 gm): Umbilical cord - trivascular with no inflammation. Placental membranes - no evidence of inflammation. 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 AM:suad 10/19/20 MICROSCOPIC DESCRIPTION Slides are reviewed. GROSS DESCRIPTION SPECIMEN: PLACENTA / CLINICAL INFORMATION: A. Weight: Not noted B. Gestational Age: 15 weeks C. Sex: Male PLACENTAL WEIGHT (POST FIXATION): 67 gm PLACENTAL DIMENSIONS: 8 x 8 x 2 cm PLACENTAL SHAPE: Usual ovoid PLACENTAL WEIGHT FOR GESTATIONAL AGE: Within 10-99th percentile MEMBRANES - Present A. Insertion: Marginal B. Site of rupture from edge: At edge of placental disc C. Color of membrane: Arevalo-julian D. Abnormalities: None UMBILICAL CORD - Present A. Color: Arevalo-julian B. Insertion: Paracentral C. Length: 15 cm D. Diameter: 0.3 cm E. Number of vessels: Three F. Abnormalities: None PLACENTAL DISC - Present A. Color of surface: Arevalo-julian B. surface abnormalities: None C. Maternal cotyledons: The maternal surface is partly disrupted. Sections reveal arevalo-pink cut surfaces. D. Attached retro placental clot: No clot E. Cut surface: Dark red and spongy F. Lesions: None G. Separate clot: Absent SECTIONS SUBMITTED: 1. Membrane roll, umbilical cord, maternal end 2. Cord, end 3. Body of placenta 4. Body of placenta 5. Body of placenta SJ:suad 10/18/20 TC:3 CPT: 99524
--- NOTE | 2020-10-18 05:56 | OP.PCM_ITS ---
Problem List (1) Miscarriage Status: Acute Comment: No evidence of heart tones on ultrasound 10/17 with no d oppler flow present. Measuring 12w5d. Offered formal US, but patient declines. Discussed management options including D&E with MFM vs. induction. Needs time to consider options. Patient to call back after making decision. (2) Status: Acute Comment: declines genetic, carrier and NTD (3) Supervision of other normal Status: Acute Comment: DONALD 04/05/2021 PC: Kian Spouse: Enrique Churchill) Vaginal Delivery Maternal Presentation: Medically Indicated Induction iol 15 week demise Method of Induction: Cytotec Medical Reason for Induction: demise Amniotic Membrane Rupture Type: Artificial Amniotic Fluid Description: Clear Final DONALD: 04/05/21 Gestational age: 15 Weeks and 6 Days Date of Procedure: 10/18/20 Pre-Operative Diagnosis: feal demise 15 weeks Post-Operative Diagnosis: same Surgery/ Procedure Performed: Spontaneous Vaginal Delivery Type of Anesthesia: None Description of Procedure: paient induced with cytotec and delivered spontaneously. cord clamped and cut, male fetus with no gross abnormalities seen. not FHT. pitocin started. spontaneous delivery of the placenta occured. placenta intact and sent to pathology for analysis. ebl . tolerated delivery well. Presentation: Vertex Placental Delivery Description: Spontaneous Placenta Disposition: [facility] Cord Entanglement: None Estimated Blood Loss: 100 Infant A gender: Male Episiotomy Description: None Laceration: None Medications given after delivery: IV Pitocin Complications: None Multi Select Codes - Urinary/Genital Urinary/Genital CPT Codes: 75589 <20 wk 10L by suppository
[2020-10-18] MEDS: Oxytocin 30 units/NS 500 ml 30 UNITS/500 ML IV.SOLN 334 UNITS IV (06:15)
--- NOTE | 2020-10-18 07:43 | DCINST_ITS ---
Discharge Diet: No Restrictions Discharge Activity: Return to Normal Activity, May not drive while taking narcotic pain medications., May Shower May resume sexual activity in: 4-6 weeks Call your doctor if your incision/area has: Continuous Slow Oozing, Sudden Increased Bleeding, Increased Pain/ Swelling, Increased Redness, Foul Smelling Discharge Additional Instructions: If you experience any of the following, contact your healthcare provider. * Bleeding that soaks a pad every hour for 2 hours * Fever 100.4 or higher * Unrelieved incision or abdominal pain * Swelling, redness, discharge or bleeding from your incision or episiotomy site * Your incision begins to separate * Problems urinating (including inability to urinate or burning while urinating). * Visual changes * Severe headache * Flu-like symptoms * Pain or redness in one of both of your breasts * Pain, warmth, tenderness or swelling in your legs, especially the calf area * Frequent nausea and vomiting * Symptoms of depression or anxiety If you experience any of the following, call 911 or go to the nearest Emergency Room. * Chest pain * Problems breathing * Seizure activity * Partial or complete paralysis of a body part, slurred speech, weakness or drooping of the face, or a sudden inability to walk or hold your balance Allergies/Adverse Reactions: Allergies amoxicillin Allergy (Mild, Verified 10/17/20 09:23) Other ibuprofen [From Motrin] Allergy (Mild, Verified 10/17/20 09:23) Hives Please Follow Up With: Samantha Lee MD - [phone] When: Call to make an appointment with your doctor in 6 weeks. If you had elevated Blood pressure or 4th degree laceration you will need to be seen in 2 weeks. Primary Care Physician: Ana Purcell MD [Primary Care Provider] - Test Results: Test results from this visit will be discussed in further detail at your follow- up appointment, if applicable.
--- NOTE | 2020-10-18 07:43 | PCM.DCVAG ---
Discharge Diet: No Restrictions Discharge Activity: Return to Normal Activity, May not drive while taking narcotic pain medications., May Shower May resume sexual activity in: 4-6 weeks Call your doctor if your incision/area has: Continuous Slow Oozing, Sudden Increased Bleeding, Increased Pain/ Swelling, Increased Redness, Foul Smelling Discharge Additional Instructions: If you experience any of the following, contact your healthcare provider. Bleeding that soaks a pad every hour for 2 hours Fever 100.4 or higher Unrelieved incision or abdominal pain Swelling, redness, discharge or bleeding from your incision or episiotomy site Your incision begins to separate Problems urinating (including inability to urinate or burning while urinating). Visual changes Severe headache Flu-like symptoms Pain or redness in one of both of your breasts Pain, warmth, tenderness or swelling in your legs, especially the calf area Frequent nausea and vomiting Symptoms of depression or anxiety If you experience any of the following, call 911 or go to the nearest Emergency Room. Chest pain Problems breathing Seizure activity Partial or complete paralysis of a body part, slurred speech, weakness or drooping of the face, or a sudden inability to walk or hold your balance Allergies/Adverse Reactions: Allergies amoxicillin Allergy (Mild, Verified 10/17/20 09:23) Other ibuprofen [From Motrin] Allergy (Mild, Verified 10/17/20 09:23) Hives Please Follow Up With: Samantha Lee MD - [phone] When: Call to make an appointment with your doctor in 6 weeks. If you had elevated Blood pressure or 4th degree laceration you will need to be seen in 2 weeks. Primary Care Physician: Ana Purcell MD [Primary Care Provider] - Test Results: Test results from this visit will be discussed in further detail at your follow-up appointment, if applicable.
--- NOTE | 2020-10-18 07:44 | NURSING ---
Delivery of demise weight 1.4oz /40gm length 13cm head circumference 8 cm
[2020-10-18] MEDS: oxyCODONE 5 MG Tablet PO (08:50)
[2020-10-18 14:19] LABS: Kleihauer-Betke Negative
[2020-10-19 10:29] LABS: Toxoplasma Gondii IgG < 3.0 IU/mL (0.0-7.1)
[2020-10-21 07:06] LABS: Dilute Prothrombin Time (dPT) 31.7 sec (0.0-55.0); Dilute Russell Viper Venom 31.8 sec (0.0-47.0); PTT-LA 40.9 sec (0.0-51.9); Thrombin Time 16.4 sec (0.0-23.0); dPT Confirm Ratio 0.95 Ratio (0.00-1.40)
[2020-10-21 14:26] LABS: Anti-Cardiolipin Ab, IgA, Qn < 9 APL U/mL (0-11); Anti-Cardiolipin Ab, IgG, Qn < 9 GPL U/mL (0-14); Anti-Cardiolipin Ab, IgM, Qn 12 MPL U/mL (0-12); Beta-2-Glycoprotein I IgA <9 (0-25); Beta-2-Glycoprotein I IgG <9 (0-20); Beta-2-Glycoprotein I IgM <9 (0-32); Interpretation Comment: (.)
[2020-10-22 14:08] LABS: Pathology Specimen OB SEE PATHOLOGY REPORT
[2020-10-22 17:05] LABS: Anti-Cardiolipin Ab, IgA, Qn < 9 APL U/mL (0-11); Anti-Cardiolipin Ab, IgG, Qn < 9 GPL U/mL (0-14); Anti-Cardiolipin Ab, IgM, Qn 14 MPL U/mL (0-12); CMV Acute Antibody IgM < 30.0 AU/mL (0.0-29.9); CMV Antibody IgG < 0.60 U/mL (0.00-0.59); PARVOVIRUS B19 IGM 0.1 index (0.0-0.8); Toxoplasma Gondii IgM < 3.0 AU/mL (0.0-7.9)
== END 2020-10-18 11:35 | disposition home or self-care (01) | DRG 807 ==
PROVIDERS: Admitting Provider Obstetrics & Gynecology; PCP Family Medicine; Referring Provider Obstetrics & Gynecology; Visit Provider Obstetrics & Gynecology
DX: O03.9 Complete or unspecified spontaneous abortion without complication (principal); Z37.1 Single stillbirth; Z3A.15 15 weeks gestation of pregnancy
CPT/HCPCS: 59050; 83036; 84443; 85025; 85460; 86146; 86147; 86644; 86645; 86747; 86777; 86778; 86850; 86900; 86901; 88307; 99218; J7120; A4216; G0378

== ENCOUNTER → 2021-01-23 15:58 | Outpatient (CLI) | payer OTHER, SELFPAY ==
[2020-12-03 11:26] VITALS: BMI 25.6
[2021-01-26 05:07] LABS: Dilute Prothrombin Time (dPT) 35.4 sec (0.0-55.0); Dilute Russell Viper Venom 35.1 sec (0.0-47.0); PTT-LA 48.4 sec (0.0-51.9); dPT Confirm Ratio 0.97 Ratio (0.00-1.40)
[2021-01-26 09:27] LABS: Anti-Cardiolipin Ab, IgA, Qn < 9 APL U/mL (0-11); Anti-Cardiolipin Ab, IgG, Qn < 9 GPL U/mL (0-14); Anti-Cardiolipin Ab, IgM, Qn 17 MPL U/mL (0-12); Beta-2-Glycoprotein I IgA <9 (0-25); Beta-2-Glycoprotein I IgG <9 (0-20); Beta-2-Glycoprotein I IgM <9 (0-32); Interpretation Comment: (.)
== END ==
PROVIDERS: PCP Family Medicine; Visit Provider Obstetrics & Gynecology
DX: N96 Recurrent pregnancy loss (principal)
CPT/HCPCS: 36415; 86146; 86147

== ENCOUNTER → 2021-02-12 12:15 | Outpatient (CLI) | payer OTHER, SELFPAY ==
[2020-12-03 11:26] VITALS: BMI 25.6
[2021-02-12 14:29] LABS: hCG Titer Quant., Serum 12 mIU/mL (1-3)
== END ==
PROVIDERS: PCP Family Medicine; Referring Provider Obstetrics & Gynecology; Visit Provider Obstetrics & Gynecology
DX: N91.2 Amenorrhea, unspecified (principal)
CPT/HCPCS: 36415; 84702

== ENCOUNTER → 2021-02-14 11:03 | Outpatient (CLI) | payer OTHER, SELFPAY ==
[2020-12-03 11:26] VITALS: BMI 25.6
[2021-02-14 11:49] LABS: hCG Titer Quant., Serum 67 mIU/mL (1-3)
== END ==
PROVIDERS: PCP Family Medicine; Referring Provider Obstetrics & Gynecology; Visit Provider Obstetrics & Gynecology
DX: Z34.90 Encounter for supervision of normal pregnancy, unspecified, unspecified trimester (principal)
CPT/HCPCS: 36415; 84702

== ENCOUNTER 2021-03-07 05:18 | Emergency (ER) | payer OTHER, SELFPAY ==
[2020-12-03 11:26] VITALS: BMI 25.6
[2021-03-07 05:20] VITALS: BP 101/65; PULSE 70; RESP 18; TEMP 36.6; O2SAT 100; BMI 26.1
[2021-03-07 05:36] LABS: Bedside Glucose 111 mg/dL (70-110)
--- NOTE | 2021-03-07 05:56 | US_ITS ---
STUDY: FIRST TRIMESTER OBSTETRICAL ULTRASOUND REASON FOR EXAM: Female, 31 years old pelvic pain, LMP: 01/14/2021. TECHNIQUE: Transvaginal TECHNICAL QUALITY: Adequate. PRIOR ULTRASOUND: None. FINDINGS: There is visualization of a single gestational sac in a normal intrauterine position. The mean sac diameter (MSD) measures 1.6 cm, indicating an estimated gestational age (EGA) of 6 weeks, 3 days. The gestational sac shape is within normal limits. There is a visualized yolk sac. The yolk sac measures 5 mm. The placenta is non-visualized. There is visualization of a live embryo. The crown-rump length (CRL) measures 5 mm, indicating an estimated gestational age (EGA) of 6 weeks, 3 days. There is demonstrated cardiac activity with a heart rate of 130 bpm. The estimated gestation age (EGA) by LMP is 7 weeks, 3 days. The estimated date of delivery (DONALD) by LMP is 10/21/2021. The estimated gestation age (EGA) by US is 6 weeks, 3 days. The estimated date of delivery (DONALD) by US is 10/28/2021. The uterus measures 7.2 cm x 6.5 cm x 5.4 cm. There is no demonstrated uterine fibroid. The cervix is closed. The right ovary measures 2.9 cm x 2.9 cm x 1.8 cm. There is no right ovarian cyst. There is no visualized right adnexal mass or complex lesion. The left ovary measures 3.4 cm x 2.2 cm x 1.9 cm. There is no left ovarian cyst. There is no visualized left adnexal mass or complex lesion. There is no fluid in the cul de sac. US/Transvaginal w/Preg US IMPRESSION: Single live uterine gestation with a mean gestational age of 6 weeks and 3 days. Electronically Signed: Glen Diop MD at 7:52 EDT , Service support ,
--- NOTE | 2021-03-07 05:58 | ED.VIS.GI ---
HPI HPI - GI History of Present Illness Chief Complaint: General Illness Informant: patient Abdominal Pain/Flank Pain Onset: Hours (1-2) Context: Sudden Onset (woke up at 4am w/ sx) Timing: Continuous Quality: Cramping Location: - (pelvic, nonlateralizing) Current Severity: Mild Maximum Severity: Moderate Worsened by: Nothing Relieved by: Nothing Nausea/Vomiting/Emesis GI Symptom: Negative for Nausea and Vomiting Diarrhea/Melena/Hematochezia GI Symptom: Negative for Diarrhea, Melena and Hematochezia Associated Symptoms Associated Symptoms: Negative for Dysuria, Frequency, Hematuria and Urgency Narrative Narrative: Patient is approximately 7 weeks , A1. She went to bed asymptomatic and feeling well. No recent illness, injury or fall. She woke up in the middle the night with cramping in her lower abdomen/pelvis, and she felt lightheaded, shaky, like her blood sugar was low. She has felt like that in the past with regards to her blood sugar, but she has never actually checked her sugar to verify that is what she is experiencing, she is not a diabetic. This morning she quickly drank a cola, and subsequently felt much better but the cramping persisted so she presents to the emergency department out of concern because she recently had a miscarriage. As a result of that event, she had some blood testing that showed anticardiolipin antibody positive IgM so she currently is on Lovenox injections. The other day she did one of her injections in her left abdomen, and it resulted in a good sized bruise which is a little sore and not the location of her current pain. [facility] Medical History (Updated 03/07/21 @ 08:[address] Rich Worrell MD) Anti-cardiolipin antibody positive Gave to child recently Hemorrhoids Prior with demise Home Medications vitamin#30 30 mg iron-10 mg iron-folic acid 1 mg-omg3 capsule 1 cap PO DAILY 12/03/20 [History Last Taken Unknown] enoxaparin 40 mg/0.4 mL subcutaneous syringe 40 mg SC DAILY 30 Days #12 ml 02/15/21 [Rx Last Taken Unknown] aspirin 81 mg tablet,delayed release 81 mg PO DAILY 03/04/21 [History Last Taken Unknown] Allergy/AdvReac Type Severity Reaction Status Date / Time amoxicillin Allergy Mild Other Verified 03/07/21 05:20 ibuprofen [From Motrin] Allergy Mild Hives Verified 03/07/21 05:20 Family History Unknown Breast cancer Surgical History History of appendectomy Social History household members: family housing: house number of children: 1 current occupational status: employed 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 Smoking Status: Never smoker second hand exposure: No alcohol intake: never details: social substance use type: does not use caffeine: Yes what type of physical activity do you participate in: none seatbelt use: always do you feel safe at home: Yes additional social history: - [employer] ROS ROS ED Constitutional Constitutional ED: Denies chills or fever(s) Eyes Eyes: Denies change in vision or diplopia ENT ENT ED: Denies rhinorrhea or sore throat Cardiovascular Cardiovascular: Denies chest pain or palpitations Respiratory/Chest Respiratory/Chest: Denies cough or dyspnea Gastrointestinal Gastrointestinal: Reports abdominal pain; Denies diarrhea, nausea or vomiting Genitourinary Genitourinary ED: Reports LMP (females 10-50) Details: Comment: (01/14/2021) and other Details: no vaginal bleeding or discharge or pain ; Denies dysuria or hematuria Musculoskeletal Musculoskeletal: Denies back pain or neck pain Integumentary Denies abscess or rash Neurologic Neurologic: Denies headache(s), paresthesias or weakness Psychiatric Psychiatric: Denies anxiety or suicidal thoughts EXAM Physical Exam Const Vital Signs: 03/07/21 05:20 03/07/21 05:25 03/07/21 07:55 Temperature 97.9 F Temperature Source Oral Pulse Rate 70 79 Respiratory Rate 18 16 Respiratory Effort Normal Respiratory Pattern Normal Blood Pressure 101/65 93/65 Blood Pressure Mean 77 74 Pulse Ox 100 100 Oxygen Delivery Method Room Air Positive well nourished and well developed General Appearance ED: well developed and NAD HEENT Reports moist mucous membranes normocephalic and atraumatic Eyes PERRL and EOMs intact bilaterally Neck full ROM and supple Resp normal respiratory effort and clear to auscultation bilaterally Cardio regular rate, regular rhythm and no murmurs GI normal to inspection, nondistended, normoactive bowel sounds, soft to palpation and non-distended GI Narrative: Mildly tender large ecchymotic area left mid abdomen at site of patient's Lovenox injection. No hematoma. Palpation: tender suprapubic; Negative for guarding or rebound tenderness present Back/Spine no CVA tenderness General Back: other FROM Extremity normal to inspection General Extremety ED: Negative for edema, pulses abnormal or tenderness General Extremity: Negative for edema or pulses abnormal Neuro oriented x3, CN's II-XII intact bilaterally and no sensory deficits noted Sensorium / Orientation: awake and alert Motor Exam: strength 5/5 throughout Skin no rashes or lesions noted and no wounds MDM MDM MDM Narrative Medical decision making narrative: Patient is clinically well-appearing and her vital signs are normal, she does not appear to be in any type of shock. I did a bedside ultrasound and attempts to visualize the fetus but her uterus looks empty. Using our bedside screening ultrasound, differential includes early intrauterine that is not able to be visualized, as it also does an ectopic. She has had no bleeding this morning yet, she has prior recorded blood types of a positive so RhoGam not indicated and we do not need to check her blood type again. 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 Declined Tylenol. She has an appointment with her OB in less than 1 week and I encouraged her to discuss with her then, in addition to continuing to treat her possible hypoglycemic episodes as she has been. Lab Data Attestation: I reviewed the patient's lab results. Labs: Laboratory Results - last 24 hr 03/07/21 03/07/21 03/07/21 05:29 05:33 05:33 WBC 6.1 RBC 4.51 Hgb 13.2 Hct 40.4 MCV 89.6 MCH 29.3 MCHC 32.7 RDW Std Deviation 40.5 RDW Coeff of [place] 12.3 Plt Count 248 MPV 9.1 Immature Gran % (Auto) 0.200 Neut % (Auto) 63.1 Lymph % (Auto) 26.4 Chaves % (Auto) 9.0 Eos % (Auto) 1.0 Baso % (Auto) 0.3 Absolute Neuts (auto) 3.9 Absolute Lymphs (auto) 1.62 Nucleated RBC % 0 HCG, Quant 08288 H Urine Color Urine Clarity Urine pH Ur Specific [place] Urine Protein Urine Glucose (UA) Urine Ketones Urine Occult Blood Urine Nitrite Urine Bilirubin Urine Urobilinogen Ur Leukocyte Esterase Urine RBC Urine WBC Ur Squamous Epith Cells Urine Bacteria Urine Mucus POC Glucose 111 H 03/07/21 06:05 WBC RBC Hgb Hct MCV MCH MCHC RDW Std Deviation RDW Coeff of [place] Plt Count MPV Immature Gran % (Auto) Neut % (Auto) Lymph % (Auto) [place] % (Auto) Eos % (Auto) Baso % (Auto) Absolute Neuts (auto) Absolute Lymphs (auto) Nucleated RBC % HCG, Quant Urine Color Yellow Urine Clarity Clear Urine pH 6.0 Ur Specific [place] 1.025 Urine Protein Negative Urine Glucose (UA) Normal Urine Ketones Negative Urine Occult Blood Negative Urine Nitrite Negative Urine Bilirubin Negative Urine Urobilinogen Normal Ur Leukocyte Esterase 25 H Urine RBC 0 SEEN Urine WBC 0-5 SEEN Ur Squamous Epith Cells 0-5 SEEN Urine Bacteria 0 SEEN Urine Mucus 0 SEEN POC Glucose Radiography Diagnostic Testing: Radiology Impression Obstetrics Ultrasound 03/07/21 05:56 IMPRESSION: Single live uterine gestation with a mean gestational age of 6 weeks and 3 days. Electronically Signed: Glen Diop MD at 7:52 EDT , Service support , Discharge Plan Triage Chief Complaint: General Illness ED Provider: Rich Worrell Dx/Rx/DC Orders Clinical Impression: Pelvic pain affecting in first trimester, antepartum Instructions: ED Pelvic Pain, Unknown Cause Prescriptions: No Action vitamin#30 30 mg iron-10 mg iron-folic acid 1 mg-omg3 capsule 30 mg iron-10 mg iron-1 mg capsule 1 cap PO DAILY RF: 0 aspirin 81 mg tablet,delayed release (DR/EC) 81 mg PO DAILY RF: 0 enoxaparin [Lovenox] 40 mg/0.4 mL syringe 40 mg SC DAILY 30 Days Qty: 12 RF: 12 Primary Care Provider: Ana Purcell Referrals: Ana Purcell MD [Primary Care Provider] - Samantha Lee MD [STAFF PHYSICIAN] - Keep German appointment Disposition Disposition: Home, self care
[2021-03-07 06:04] LABS: Absolute Lymphocyte Count 1.62 X10^3/uL (0.83-4.51); Absolute Neutrophil Count 3.9 X10^3/uL (2.0-7.7); Basophil# 0.02 X10^3/uL; Basophil% 0.3 % (0-1); Eosinophil# 0.06 X10^3/uL; Hematocrit 40.4 % (37-47); Hemoglobin 13.2 g/dL (12.0-15.0); Lymphocyte # 1.62 X10^3/ul (0.83-4.51); Lymphocyte % 26.4 % (19-41); Mean Corp Hgb Conc 32.7 g/dL (32-36); Mean Corpuscular Hgb 29.3 pg (27.0-32.0); Mean Corpuscular Volume 89.6 fL (81-99); Mean Platelet Vol. 9.1 fl (6.2-12.0); Monocyte# 0.55 X10^3/uL; NRBC Flagged by Analyzer 0 % (0-5); Neutrophil # 3.88 X10^3/uL (2.7-7.7); Neutrophil % 63.1 % (47-70); Platelet Count 248 K/mm3 (150-450); RBC Distribution Width CV 12.3 % (11.6-14.6); RBC Distribution Width SD 40.5 fl (35.1-43.9); Red Blood Count 4.51 M/mm3 (4.2-5.4); White Blood Count 6.1 K/mm3 (4.4-11.0)
[2021-03-07 06:11] LABS: Bacteria 0 SEEN /hpf (None Seen); Color, Urine Yellow (Yellow); Glucose, Dipstick Normal (Normal); Ketone-Dipstick Negative (Negative); Leukocyte Esterase-Dipstick 25 /ul (Negative); Mucous, Urine 0 SEEN /hpf (<or=2+); Nitrite-Dipstick Negative (Negative); Occult Blood-Urine Negative /ul (Negative); Protein-Dipstick Negative (Negative); Red Blood Cells-Urine 0 SEEN /hpf (0-5); Specific Gravity, Urine 1.025 (1.002-1.030); Urine Bilirubin Dipstick Negative (Negative); Urine Clarity Clear (Clear); Urine Urobilinogen Normal (Normal)
[2021-03-07 06:17] LABS: Squamous Epithelial Cells - UA 0-5 SEEN /hpf (5-10); White Blood Cells 0-5 SEEN /hpf (0-5)
[2021-03-07 06:33] LABS: hCG Titer Quant., Serum 32273 mIU/mL (1-3)
[2021-03-07 07:55] VITALS: BP 93/65; PULSE 79; RESP 16; O2SAT 100
== END 2021-03-07 08:16 | disposition home or self-care (01) ==
PROVIDERS: Emergency Provider Emergency Medicine; PCP Family Medicine
DX: O26.891 Other specified pregnancy related conditions, first trimester (principal); O09.291 Supervision of pregnancy with other poor reproductive or obstetric history, first trimester; R10.2 Pelvic and perineal pain; Z3A.01 Less than 8 weeks gestation of pregnancy; Z79.01 Long term (current) use of anticoagulants; Z79.1 Long term (current) use of non-steroidal anti-inflammatories (NSAID); Z79.82 Long term (current) use of aspirin; Z87.59 Personal history of other complications of pregnancy, childbirth and the puerperium
CPT/HCPCS: 76817; 81001; 82962; 84702; 85025; 99284; A4216

== ENCOUNTER → 2021-03-11 16:27 | Outpatient (CLI) | payer OTHER, SELFPAY ==
[2021-03-11 13:40] VITALS: BMI 26.2
[2021-03-11 18:06] LABS: Amphetamine Urine VISTA NEGATIVE (<1000 ng/mL); Barbiturate Urine VISTA NEGATIVE (< 200 ng/mL); Benzodiazepine Urine VISTA NEGATIVE (< 200 ng/mL); Cocaine Urine VISTA NEGATIVE (< 300 ng/mL); Ecstacy Urine VISTA NEGATIVE (< 500 ng/mL); Methadone Urine VISTA NEGATIVE (< 300 ng/mL); PCP Urine VISTA NEGATIVE (< 25 ng/mL); THC Urine VISTA NEGATIVE (< 50 ng/mL); Vista UDS pH Range 5
[2021-03-14 03:07] LABS: Chlamydia By Nucleic Acid AMP Negative (Negative)
[2021-03-14 09:27] LABS: Gonococcus By Nucleic Acid AMP Negative (Negative)
[2021-03-15 20:48] LABS: HPV Reflexed? NOT INDICATED
== END ==
PROVIDERS: PCP Family Medicine; Referring Provider Obstetrics & Gynecology; Visit Provider Obstetrics & Gynecology
DX: Z34.90 Encounter for supervision of normal pregnancy, unspecified, unspecified trimester (principal)
CPT/HCPCS: 80307; 87086; 87088; 87491; 87591; 88175; G0145

== ENCOUNTER → 2021-04-09 17:07 | Outpatient (CLI) | payer OTHER, SELFPAY ==
[2021-04-09 13:46] VITALS: BMI 26.2
[2021-04-09 19:20] LABS: Chlamydia Trachomatis by PCR Negative (Negative); Neisserai gonorrhoeae by PCR Negative (Negative); Probe Check PASS; Sample Adequacy Control PASS; Specimen Processing Control PASS
== END ==
PROVIDERS: PCP Family Medicine; Visit Provider Obstetrics & Gynecology
DX: Z34.90 Encounter for supervision of normal pregnancy, unspecified, unspecified trimester (principal)
CPT/HCPCS: 87491; 87591

== ENCOUNTER → 2021-04-10 08:13 | Outpatient (CLI) | payer OTHER, SELFPAY ==
[2021-04-09 13:46] VITALS: BMI 26.2
[2021-04-10 08:30] LABS: Absolute Neutrophil Count 4.5 X10^3/uL (2.0-7.7); Basophil# 0.03 X10^3/uL; Basophil% 0.4 % (0-1); Eosinophil# 0.08 X10^3/uL; Eosinophils% 1.2 % (0-5); Hematocrit 38.1 % (37-47); Hemoglobin 12.6 g/dL (12.0-15.0); Lymphocyte % 24.8 % (19-41); Mean Corp Hgb Conc 33.1 g/dL (32-36); Mean Corpuscular Hgb 28.7 pg (27.0-32.0); Mean Corpuscular Volume 86.8 fL (81-99); Monocyte# 0.47 X10^3/uL; Monocyte% 6.9 % (0-10); NRBC Flagged by Analyzer 0 % (0-5); Neutrophil # 4.54 X10^3/uL (2.7-7.7); Neutrophil % 66.1 % (47-70); Platelet Count 264 K/mm3 (150-450); RBC Distribution Width SD 41.2 fl (35.1-43.9); Red Blood Count 4.39 M/mm3 (4.2-5.4); White Blood Count 6.9 K/mm3 (4.4-11.0)
[2021-04-10 09:16] LABS: ALB/GLOB Ratio 0.9 RATIO (0.9-2.4); AST(SGOT) 14 U/L (15-37); Alanine Aminotransfer ALT/SGPT 20 U/L (13-56); Albumin, Serum 3.5 g/dL (3.2-5.0); Alkaline Phosphatase 60 U/L (45-117); Anion Gap 6 (5-15); BUN 7 mg/dL (7-18); BUN/Creat Ratio 14.2 RATIO (10-20); Calcium,Total 8.9 mg/dL (8.5-10.1); Chloride 107 mmol/L (98-107); Creatinine, Serum 0.49 mg/dL (0.55-1.02); EST Glomerular Filtration Rate 158 mL/min (>60); Est Glom Filt Rate - Afr Amer 191 mL/min (>60); Globulin 3.7 g/dL (2.2-4.2); Glucose 87 mg/dL (74-106); Protein, Total 7.2 g/dL (6.4-8.2); Sodium Level 136 mmol/L (136-145)
[2021-04-10 09:50] LABS: HIV - WCH Non-Reactive (Nonreactive); Hepatitis B Surface Antigen Non-Reactive (Nonreactive); Hepatitis C Antibody Non-Reactive (Nonreactive); Rubella IgG Reactive (Nonreactive); Syphilis Antibodies Non-reactive
[2021-04-10 11:13] LABS: Protein, Urine (Random) 13.9 mg/dL (<11.9); Protein:Creat Ratio 99 mg/g CRE (0-200)
== END ==
PROVIDERS: PCP Family Medicine; Referring Provider Obstetrics & Gynecology; Visit Provider Obstetrics & Gynecology
DX: Z34.90 Encounter for supervision of normal pregnancy, unspecified, unspecified trimester (principal); R89.9 Unspecified abnormal finding in specimens from other organs, systems and tissues
CPT/HCPCS: 36415; 80053; 82570; 84156; 85025; 86703; 86762; 86780; 86803; 86850; 86900; 86901; 87340

== ENCOUNTER → 2021-05-30 12:26 | Outpatient (CLI) | payer OTHER, SELFPAY ==
[2021-03-27 10:24] VITALS: BMI 26.2
[2021-05-20 10:28] VITALS: BMI 27.0
--- NOTE | 2021-05-30 12:32 | US_ITS ---
STUDY: SECOND AND THIRD TRIMESTER OBSTETRICAL ULTRASOUND REASON FOR EXAM: Female, 31 years old anatomy LMP: 01/15/2021. TECHNIQUE: Transabdominal and Transvaginal TECHNICAL QUALITY: Adequate. PRIOR ULTRASOUND: Comparison is made with prior study dated 03/07/2021. FINDINGS: There is a single intrauterine fetus. The fetus is in a cephalic presentation. There is demonstrated cardiac activity with a heart rate of 160 bpm. There is a normal amniotic fluid volume. The largest amniotic fluid pocket measures 3.8 cm. The amniotic fluid index (ADAM) is within normal limits. The placenta is anterior with a marginal previa. The tip of the placenta is 1 cm from the cervical os. There are Grade 0 placental changes. The cervix measures 5.4 cm in length. The adnexal regions are not visualized. BIOMETRY: BPD: 4.38 cm: 19 weeks, 1 days HC: 16.72 cm: 19 weeks, 2 days AC: 14.49 cm: 19 weeks, 5 days FL: 3.11 cm: 19 weeks, 4 days CI: 75% FL/BPD: 71% FL/HC: FL/AC: 21% HC/AC: 1.15 age by current US: 19 weeks, 2 days. DONALD by current US: 10/22/2021. Estimated weight: 307 grams, +/- 46 grams, 68 %. age by prior US: 8 weeks, 3 days. DONALD by prior US: 10/28/2021. Age by LMP: 19 weeks, 2 days. DONALD by LMP: 10/22/2021. ANATOMY: Gender: Male Cranium: Normal lateral ventricles. Normal choroid plexus. Normal cerebellum. Normal cisterna magna. Normal face, nose and lips. Chest: Normal 4-chamber heart. Abdomen/Pelvis: Normal diaphragm. Normal stomach. Normal abdominal wall. Normal cord insertion. Normal 3 vessel cord. Upper limits of normal of the renal pelves measuring 3 mm. Normal bladder. Spine: Normal cervical spine. Normal thoracic spine. Normal lumbar spine. Normal sacrum. Extremities: Normal bilateral upper extremities. Normal bilateral lower extremities. US/OB Anatomy Scan IMPRESSION: Single live uterine gestation with a mean gestational age of 19 weeks and 2 days. Anterior marginal placenta previa. The tip of the placenta is 1 cm from the cervical os. Electronically Signed: Glen Diop MD at 15:53 EDT , Service support ,
== END ==
PROVIDERS: PCP Family Medicine; Referring Provider Obstetrics & Gynecology; Visit Provider Obstetrics & Gynecology
DX: O09.90 Supervision of high risk pregnancy, unspecified, unspecified trimester (principal); Z3A.00 Weeks of gestation of pregnancy not specified
CPT/HCPCS: 76805; 76817

== ENCOUNTER → 2021-06-21 12:49 | Outpatient (CLI) | payer OTHER, SELFPAY ==
[2021-06-21 08:33] VITALS: BMI 27.0
== END ==
PROVIDERS: PCP Family Medicine; Visit Provider Obstetrics & Gynecology
DX: O99.891 Other specified diseases and conditions complicating pregnancy (principal); M54.9 Dorsalgia, unspecified; Z3A.00 Weeks of gestation of pregnancy not specified
CPT/HCPCS: 87086; 87088

== ENCOUNTER → 2021-07-17 07:47 | Outpatient (CLI) | payer OTHER, SELFPAY ==
[2021-07-17 08:12] LABS: Absolute Neutrophil Count 5.1 X10^3/uL (2.0-7.7); Basophil# 0.01 X10^3/uL; Basophil% 0.1 % (0-1); Eosinophil# 0.09 X10^3/uL; Eosinophils% 1.3 % (0-5); Hematocrit 31.6 % (37-47); Hemoglobin 10.6 g/dL (12.0-15.0); Lymphocyte % 19.7 % (19-41); Mean Corp Hgb Conc 33.5 g/dL (32-36); Mean Corpuscular Hgb 30.3 pg (27.0-32.0); Mean Corpuscular Volume 90.3 fL (81-99); Mean Platelet Vol. 9.4 fl (6.2-12.0); NRBC Flagged by Analyzer 0 % (0-5); Neutrophil # 5.05 X10^3/uL (2.7-7.7); Neutrophil % 71.2 % (47-70); Platelet Count 209 K/mm3 (150-450); RBC Distribution Width CV 13.9 % (11.6-14.6); RBC Distribution Width SD 44.9 fl (35.1-43.9); White Blood Count 7.1 K/mm3 (4.4-11.0)
[2021-07-17 08:17] LABS: Glucose Challenge Gest 1H 50g 145 mg/dL (70-140)
== END ==
PROVIDERS: PCP Family Medicine; Referring Provider Obstetrics & Gynecology; Visit Provider Obstetrics & Gynecology
DX: Z13.1 Encounter for screening for diabetes mellitus (principal); O09.90 Supervision of high risk pregnancy, unspecified, unspecified trimester; Z3A.00 Weeks of gestation of pregnancy not specified
CPT/HCPCS: 36415; 82950; 85025

== ENCOUNTER → 2021-07-23 06:55 | Outpatient (CLI) | payer OTHER, SELFPAY ==
[2021-07-23 07:23] LABS: Glucose GTT-Gestation. Fasting 87 mg/dL (<105)
[2021-07-23 09:10] LABS: Glucose GTT-Gestational 1 Hr 215 mg/dL (<190)
[2021-07-23 10:23] LABS: Glucose GTT-Gestational 2 Hr 193 mg/dL (<165)
[2021-07-23 11:29] LABS: Glucose GTT-Gestational 3 Hr 145 L (<145)
== END ==
PROVIDERS: PCP Family Medicine; Referring Provider Obstetrics & Gynecology; Visit Provider Obstetrics & Gynecology
DX: Z13.1 Encounter for screening for diabetes mellitus (principal)
CPT/HCPCS: 82951; 82952

== ENCOUNTER → 2021-07-30 08:46 | Outpatient (CLI) | payer OTHER, SELFPAY ==
[2021-06-19 09:00] VITALS: BMI 27.0
--- NOTE | 2021-07-30 08:48 | US_ITS ---
STUDY: SECOND AND THIRD TRIMESTER OBSTETRICAL ULTRASOUND - LIMITED REASON FOR EXAM: Female, 31 years old placenta follow up at 28 weeks LMP: 01/15/2021. PRIOR ULTRASOUND: Comparison is made with prior examination dated 05/30/2021. TECHNIQUE: Transabdominal and Transvaginal TECHNICAL QUALITY: Adequate. FINDINGS: There is a single intrauterine fetus. The fetus is in a breech presentation. There is demonstrated cardiac activity with a heart rate of 155 bpm. There is a normal amniotic fluid volume. The largest amniotic fluid pocket measures 5.7 cm. The amniotic fluid index (ADAM) is 19.3 cm. The placenta is anterior in location and is not low lying. There are Grade 1 placental changes. The cervix measures 3.7 cm in length. BIOMETRY: Age by LMP: 28 weeks, 0 days. DONALD by LMP: 10/22/2021. US/OB Limited (No Biometrics) IMPRESSION: Anterior placenta. No evidence of placenta previa or low-lying placenta. Electronically Signed: Glen Diop MD at 15:03 EDT , Service support ,
== END ==
PROVIDERS: PCP Family Medicine; Referring Provider Obstetrics & Gynecology; Visit Provider Obstetrics & Gynecology
DX: O32.1XX0 Maternal care for breech presentation, not applicable or unspecified (principal); Z3A.28 28 weeks gestation of pregnancy
CPT/HCPCS: 76815; 76817

== ENCOUNTER 2021-08-13 12:22 | Outpatient (RCR) | payer OTHER, SELFPAY ==
--- NOTE | 2021-10-21 17:14 | DS.PCM_ITS ---
Massage Therapy Discharge Summary: Initial Evaluation Date: 08/13/21 Diagnosis: No. of Visits: 1 Date of last visit: 08/13/21 This patient is being discharged from our care at the [facility]. Thank you, Noa Denise LMT
== END 2021-08-13 19:00 | disposition home or self-care (01) ==
LOC: MASS 12:22
PROVIDERS: PCP Family Medicine; Referring Provider Obstetrics & Gynecology; Visit Provider Obstetrics & Gynecology
DX: O09.90 Supervision of high risk pregnancy, unspecified, unspecified trimester (principal); Z3A.00 Weeks of gestation of pregnancy not specified
CPT/HCPCS: 97124

== ENCOUNTER → 2021-08-27 12:30 | Outpatient (CLI) | payer OTHER, SELFPAY ==
--- NOTE | 2021-08-27 12:32 | US_ITS ---
STUDY: SECOND AND THIRD TRIMESTER OBSTETRICAL ULTRASOUND REASON FOR EXAM: Female, 31 years old [facility] TECHNIQUE: Transabdominal PRIOR ULTRASOUND: 07/30/2021. FINDINGS: There is a single intrauterine fetus. The fetus is in a cephalic presentation. There is demonstrated cardiac activity with a heart rate of 148 bpm. There is a normal amniotic fluid volume. The largest amniotic fluid pocket measures 3.8 cm. The amniotic fluid index (ADAM) is 11.2 cm. The placenta is anterior and not low-lying. There are Grade 1 placental changes. The cervix measures 3.5 cm in length and is closed. The adnexal regions are not visualized. BPD: 8.1 cm = 32 weeks, 3 day(s) HC: 30.2 cm = 33 weeks, 4 day(s) AC: 30 cm = 33 weeks, 4 day(s) FL: 6.3cm = 32 weeks, 3 day(s) EGA by ultrasound: 32 weeks 6 day(s) DONALD by ultrasound: 10/16/2021 Estimated weight: 2146 grams Weight percentile: 77% US/OB Limited With Biometrics IMPRESSION: Living intrauterine with estimated gestational age of 32 weeks and 6 days. Electronically Signed: Ernesto Villeda MD at 16:12 EDT Tel , Service support ,
== END ==
PROVIDERS: PCP Family Medicine; Referring Provider Obstetrics & Gynecology; Visit Provider Obstetrics & Gynecology
DX: O24.410 Gestational diabetes mellitus in pregnancy, diet controlled (principal); Z3A.32 32 weeks gestation of pregnancy
CPT/HCPCS: 76816

== ENCOUNTER → 2021-09-05 12:18 | Outpatient (CLI) | payer OTHER, SELFPAY ==
[2021-09-05 12:40] LABS: ROM Internal Control Test YES-OK TO RESULT pt. (Internal QC); ROM Patient Test Negative (Negative)
== END ==
PROVIDERS: PCP Family Medicine; Visit Provider Obstetrics & Gynecology
DX: O42.90 Premature rupture of membranes, unspecified as to length of time between rupture and onset of labor, unspecified weeks of gestation (principal); Z3A.00 Weeks of gestation of pregnancy not specified
CPT/HCPCS: 84112

== ENCOUNTER → 2021-09-09 12:05 | Outpatient (CLI) | payer OTHER, SELFPAY ==
--- NOTE | 2021-09-09 12:06 | US_ITS ---
STUDY: OBSTETRICAL ULTRASOUND - BIOPHYSICAL PROFILE REASON FOR EXAM: Female, 31 years old adam, non reactive nst LMP: 01/15/2021. PRIOR ULTRASOUND: Comparison is made with prior sonogram dated 08/27/2021. TECHNIQUE: Transabdominal TECHNICAL QUALITY: Adequate. FINDINGS: There is a single intrauterine fetus. The fetus is in a cephalic presentation. There is demonstrated cardiac activity with a heart rate of 143 bpm. There is a normal amniotic fluid volume. The largest amniotic fluid pocket measures 3.3 cm x 1.7 cm. The amniotic fluid index (ADAM) is 11.6 cm. The placenta is anterior in location and is not low lying. There are Grade 2 placental changes. Age by LMP: 33 weeks, 6 days. DONALD by LMP: 10/22/2021. BIOPHYSICAL PROFILE: Breathing Movements (FBM): 2 Gross Body Movements (GBM): 2 Tone (FT): 2 Amniotic Fluid Volume (AFV): 2 TOTAL SCORE: 8 / 8 US/Biophysical Prof W/O Non Stres IMPRESSION: Normal biophysical profile of 06/16. Electronically Signed: Glen Diop MD at 13:20 EDT , Service support ,
== END ==
PROVIDERS: PCP Family Medicine; Referring Provider Nurse Practitioner Women's Health; Visit Provider Nurse Practitioner Women's Health
DX: O24.410 Gestational diabetes mellitus in pregnancy, diet controlled (principal); O28.8 Other abnormal findings on antenatal screening of mother; Z3A.00 Weeks of gestation of pregnancy not specified
CPT/HCPCS: 76819

== ENCOUNTER → 2021-09-19 09:58 | Outpatient (CLI) | payer OTHER, SELFPAY ==
--- NOTE | 2021-09-19 10:01 | US_ITS ---
STUDY: OBSTETRICAL ULTRASOUND - BIOPHYSICAL PROFILE REASON FOR EXAM: Female, 31 years old tachycardia LMP: 01/15/2021 PRIOR ULTRASOUND: Comparison is made with prior examination dated 09/09/2021. TECHNIQUE: Transabdominal TECHNICAL QUALITY: Adequate. FINDINGS: There is a single intrauterine fetus. The fetus is in a cephalic presentation. There is demonstrated cardiac activity with a heart rate of 150 bpm. There is a normal amniotic fluid volume. The largest amniotic fluid pocket measures 4.5 cm. The amniotic fluid index (ADAM) is 15.4 cm. The placenta is anterior in location and is not low lying. There are Grade 1 placental changes. Age by LMP: 35 weeks, 2 days. DONALD by LMP: 10/22/2021. BIOPHYSICAL PROFILE: Breathing Movements (FBM): 2 Gross Body Movements (GBM): 2 Tone (FT): 2 Amniotic Fluid Volume (AFV): 2 TOTAL SCORE: US/Biophysical Prof W/O Non Stres IMPRESSION: Normal biophysical profile of 06/16. Electronically Signed: Glen Diop MD at 12:10 EST , Service support ,
== END ==
PROVIDERS: PCP Family Medicine; Referring Provider Obstetrics & Gynecology; Visit Provider Obstetrics & Gynecology
DX: O28.8 Other abnormal findings on antenatal screening of mother (principal); Z3A.00 Weeks of gestation of pregnancy not specified
CPT/HCPCS: 76819

== ENCOUNTER → 2021-09-24 07:52 | Outpatient (CLI) | payer OTHER, SELFPAY ==
--- NOTE | 2021-09-24 07:54 | US_ITS ---
STUDY: SECOND AND THIRD TRIMESTER OBSTETRICAL ULTRASOUND REASON FOR EXAM: Female, 31 years old growth LMP: 01/15/2021. TECHNIQUE: Transabdominal TECHNICAL QUALITY: Adequate. PRIOR ULTRASOUND: Comparison is made with prior examination dated 09/09/2021 and 09/19/2001. FINDINGS: There is a single intrauterine fetus. The fetus is in a cephalic presentation. There is demonstrated cardiac activity with a heart rate of 144 bpm. There is a normal amniotic fluid volume. The largest amniotic fluid pocket measures 3.2 cm. The amniotic fluid index (ADAM) is cm. The placenta is 10.9 There are Grade 1 placental changes. The cervix measures 3.1 cm in length. The adnexal regions are not visualized. BIOMETRY: BPD: 8.6 cm: 34 weeks, 5 days HC: 33.1 cm: 37 weeks, 4 days AC: 33.5 cm: 37 weeks, 2 days FL: 7.3 cm: 37 weeks, 1 days CI: 76% FL/BPD: 85% FL/HC: FL/AC: 22% HC/AC: 0.99 age by current US: 37 weeks, 0 days. DONALD by current US: 10/15/2021. Estimated weight: 3092 grams, +/- 464 grams, 77 %. age by prior US: 36 weeks, 6 days. DONALD by prior US: 10/16/2021. Age by LMP: 36 weeks, 0 days. DONALD by LMP: 10/22/2021. US/OB Limited With Biometrics IMPRESSION: Single live intrauterine gestation with a mean gestational age of 36 weeks and 6 days. The measurements obtained today following within the normal expected range. Electronically Signed: Glen Diop MD at 13:07 EST , Service support ,
== END ==
PROVIDERS: PCP Family Medicine; Referring Provider Obstetrics & Gynecology; Visit Provider Obstetrics & Gynecology
DX: O24.410 Gestational diabetes mellitus in pregnancy, diet controlled (principal); Z3A.00 Weeks of gestation of pregnancy not specified
CPT/HCPCS: 76816

== ENCOUNTER 2021-09-25 17:50 | Inpatient (IN) | payer OTHER, SELFPAY ==
[2021-09-25 15:14] VITALS: BP 112/72; PULSE 97
[2021-09-25 15:15] VITALS: BMI 31.1
[2021-09-25 15:23] VITALS: BP 112/72; PULSE 107; TEMP 36.7; O2SAT 98
[2021-09-25 15:50] LABS: Bedside Glucose 118 mg/dL (70-110)
[2021-09-25] MEDS: Acetaminophen 500 MG Tablet 1000 MG PO (16:09)
[2021-09-25] MEDS: Lactated Ringers 1,000 ML 999 ML IV (16:18)
[2021-09-25] MEDS: cycloBENZAPRine HCl 10 MG Tablet PO (17:01)
[2021-09-25] MEDS: NIFEdipine 10 MG Capsule PO ×2 (17:01→23:35)
[2021-09-25 17:18] LABS: Color, Urine Straw (Yellow); Glucose, Dipstick Normal (Normal); Ketone-Dipstick Negative (Negative); Leukocyte Esterase-Dipstick Negative /ul (Negative); Nitrite-Dipstick Negative (Negative); Occult Blood-Urine 50 /ul (Negative); Protein-Dipstick Negative (Negative); Urine Bilirubin Dipstick Negative (Negative); Urine Clarity Cloudy (Clear); Urine Urobilinogen Normal (Normal); Urine pH 6.5 (5.0 - 8.0)
[2021-09-25 18:39] LABS: Absolute Lymphocyte Count 2.54 X10^3/uL (0.83-4.51); Absolute Neutrophil Count 4.8 X10^3/uL (2.0-7.7); Basophil# 0.01 X10^3/uL; Basophil% 0.1 % (0-1); Eosinophil# 0.03 X10^3/uL; Eosinophils% 0.4 % (0-5); Hematocrit 35.7 % (37-47); Hemoglobin 12.1 g/dL (12.0-15.0); Lymphocyte # 2.54 X10^3/ul (0.83-4.51); Lymphocyte % 31.2 % (19-41); Mean Corp Hgb Conc 33.9 g/dL (32-36); Mean Corpuscular Volume 88.6 fL (81-99); Mean Platelet Vol. 10.4 fl (6.2-12.0); Monocyte# 0.72 X10^3/uL; Monocyte% 8.8 % (0-10); NRBC Flagged by Analyzer 0 % (0-5); Neutrophil # 4.82 X10^3/uL (2.7-7.7); Neutrophil % 59.1 % (47-70); Platelet Count 165 K/mm3 (150-450); RBC Distribution Width CV 13.6 % (11.6-14.6); RBC Distribution Width SD 44.6 fl (35.1-43.9); Red Blood Count 4.03 M/mm3 (4.2-5.4); White Blood Count 8.2 K/mm3 (4.4-11.0)
[2021-09-25 18:45] LABS: Bedside Glucose 69 mg/dL (70-110)
[2021-09-25 18:48] VITALS: BP 101/71; PULSE 109
[2021-09-25] MEDS: 0.9% Saline Lock 10 ML Syringe IV (19:58)
[2021-09-25 20:20] LABS: Bedside Glucose 89 mg/dL (70-110)
--- NOTE | 2021-09-25 20:26 | HP.PCM.OB_ITS ---
Documented by User: Dr. Nikkie Yarbrough, 09/25/21 20:33 HPI - General General Date of Admission: 09/25/21 HPI Narrative ARTHUR ENRIQUEZ, is a 31y/o @ 36 weeks 1 day who presents to labor and delivery with painful contractions every 2-4 minutes. She made cervical change from closed to 2 cm and was given IV fluids, procarida, and flexeril and the contractions spaced out drastically. She takes prophylactic anticoagulation (lovenox) for antiphospholipid antibody syndrome and h/o 2nd trimester loss. Currently she feels more comfortable and we discussed plan for observation and tocolysis for steroids and to await lovenox half life. Maternal Data Information DONALD Calculator Estimated Delivery Date Method Current WG Current Estimate 10/22/21 LMP (Certain) 36w 2d PFSH PFSH Medical History Anti-cardiolipin antibody positive Gave to child recently Hemorrhoids Marginal placenta previa Prior with demise Home Medications vitamin#30 30 mg iron-10 mg iron-folic acid 1 mg-omg3 capsule 1 cap PO DAILY 12/03/20 [History Last Taken Unknown] aspirin 81 mg tablet,delayed release 81 mg PO DAILY 03/04/21 [History Last Taken 09/24/21 21:00] pen needle, diabetic 32 gauge x 32 #50 ea 08/07/21 [Rx Last Taken Unknown] insulin lispro 100 unit/mL subcutaneous pen 15 unit SUBCUT .supper #3 ml 09/18/21 [Rx Last Taken Unknown] enoxaparin [Lovenox] 40 mg SC DAILY 09/25/21 [History Last Taken 09/25/21 09:00] insulin NPH isoph U-100 human [Humulin N NPH Insulin KwikPen] 20 unit SUBCUT HS 09/25/21 [History Last Taken 09/24/21 21:00] iron supplementation 1 cap PO DAILY 09/25/21 [History Last Taken 09/24/21 12:00] Allergy/AdvReac Type Severity Reaction Status Date / Time amoxicillin Allergy Mild Anaphylaxis Verified 09/25/21 15:18 ibuprofen [From Motrin] Allergy Mild Hives Verified 09/25/21 15:18 Family History Unknown Breast cancer Surgical History History of appendectomy Social History household members: family housing: house number of children: 1 current occupational status: employed 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 Date Name GA/Weeks Outcome Route Bth Weight Gen Labor Lgth Anesthesia Del Locatn Provider FOB 02/23/19 Kaid 40 live - full term 8lbs 8oz Male 18 h ours epidural [facility] JOSE J enrique Delivery Date: 02/23/19 2 DEGREE LAC Jacque Villareal Visit Details Expected Delivery Route/Plan Labor Preferences- CB/BF classes: no labor support person: Enrique labor intervention preferences: [] pain management options preferred: epidural cut cord/dad catch: cord : yes PP control planned: IUD discussed possible routes of delivery and associated risks: [] special requests: [] Plans covid status: non immune, counseled regarding risk of covid in vs vaccination and considering flu vaccine: with employer tdap vaccine: given rhogam: na LARC form signed: yes movement and labor precautions reviewed. Problem list reviewed and updated with the most current plan of care details and appropriate orders placed. Relevant counseling for the gestational age provided. Continue routine care and follow up unless otherwise noted in visit notes/problem list details OB Flowsheet Initial Weight: 139 lb Date -?-?-?-?-?-?-?-?-?-?-?-?- EGA Weight BP Urine Prot -?-?-?-?-?-?-?-?-?-?-?-?- Glucose FHR FuHt Pres Dilation -?-?-?-?-?-?-?-?-?-?-?-?- Effaced St Visit Note 03/27/21 -?-?-?-?-?-?-?-?-?-?-?-?- 10w 1d 141 lb 2 oz (+2 lb 2 oz) 114/74 -?-?-?-?-?-?-?-?-?-?-?-?- 163 -?-?-?-?-?-?-?-?-?-?-?-?- GP - no cramping or bleeding. Doing well with lovenox injections. 04/09/21 -?-?-?-?-?-?-?-?-?-?-?-?- 12w 0d 141 lb (+2 lb) 100/60 Negative -?-?-?-?-?-?-?-?-?-?-?-?- Negative 168 -?-?-?-?-?-?-?-?-?-?-?-?- MH-No Vb, LOF. Anatomy US scheduled. Will do labs today. Nausea resolved. 04/22/21 -?-?-?-?-?-?-?-?-?-?-?-?- 13w 6d 143 lb (+4 lb) 116/70 122/80 -?-?-?-?-?-?-?-?-?-?-?-?- 153 -?-?-?-?-?-?-?--?-?-?-?-?- MH-Active IUP on US. Denies VB, LOF. Anatomy US scheduled 05/20/21 -?-?-?-?-?-?-?-?-?-?-?-?- 17w 6d 145 lb (+6 lb) 100/72 Negative -?-?-?-?-?-?-?-?-?-?-?-?- Negative 150 -?-?-?-?-?-?-?-?-?-?-?-?- SM- no vb crampi ng some right side discomfrt 06/19/21 -?-?-?-?--?-?-?-?-?-?-?-?- 22w 1d 150 lb 4 oz (+11 lb 4 oz) 100/66 -?-?-?-?-?-?-?-?-?-?-?-?- 150 -?-?-?-?-?-?-?-?-?-?-?-?- GP - no LOF, VB, DFM. Discussed marginal previa. F/u US ordered. 06/21/21 -?-?-?-?-?-?-?-?-?-?-?-?- 22w 3d 151 lb (+12 lb) 114/64 -?-?-?-?-?--?-?-?-?-?-?-?- 160 -?-?-?-?-?-?-?-?-?-?-?-?- GP - work in for back pain and SOB. Pulse ox and pulse nl. Back pain likely musculoskeletal. Discussed safe meds. 07/18/21 -?-?-?-?-?-?-?-?-?-?-?-?- 26w 2d 154 lb (+15 lb) 102/64 Negative -?-?-?-?-?-?-?-?-?-?-?-?- Negative 150 29 -?-?-?-?-?-?-?-?-?-?-?-?- Sm- no vb lof go od fm no reuglar ctx fu us ordered discussed vaccination 07/30/21 -?-?-?-?-?-?-?-?-?-?-?-?- 28w 0d 157 lb 4 oz (+18 lb 4 oz) 100/70 Negative -?-?-?-?-?-?-?-?-?-?-?-?- Negative 151 29 -?-?-?-?-?-?-?-?-?-?-?-?- MH-No VB, LOF. G ood FM. Bllod glucose wnl, Sees Dr Treviño. US today to recheck placenta. Tdap, larc. Taking Fe 08/15/21 -?-?-?-?-?-?-?-?-?-?-?-?- 30w 2d 158 lb (+19 lb) 100/72 Negative -?-?-?-?-?-?-?-?-?-?-?-?- Negative 140 31 -?-?-?-?-?-?-?-?-?-?-?-?- SM- no vb lof go od fm no regular ctx.reviewed insulin and BS now. start incr eased testing 32 weeks. 08/26/21 -?-?-?-?-?-?-?-?-?-?-?-?- 31w 6d 160 lb (+21 lb) 110/70 Negative -?-?-?-?-?-?-?-?-?-?-?-?- Negative 140 -?-?-?-?-?-?-?-?-?-?-?-?- SM- no vb lof go od fm no regular ctx 08/28/21 -?-?-?-?-?-?-?-?-?-?-?-?- 32w 1d 161 lb (+22 lb) 108/70 Negative -?-?-?-?-?-?-?-?-?-?-?-?- Negative 140 -?-?-?-?-?-?-?-?-?-?-?-?- MH NST only reac tive 09/03/21 -?-?-?-?-?-?-?-?-?-?-?-?- 33w 0d 160 lb 2 oz (+21 lb 2 oz) 110/70 -?-?-?-?-?-?-?-?-?-?-?-?- 150 -?-?-?-?-?-?-?-?-?-?-?-?- MH-reactive NST. BS WNL >50% time. No VB, LOF. Good FM 09/05/21 -?-?-?-?-?-?-?-?-?-?-?-?- 33w 2d 161 lb 4 oz (+22 lb 4 oz) 96/60 Negative -?-?-?-?-?--?-?-?-?-?-?-?- Negative 130 33 -?-?-?-?-?-?-?-?-?-?-?-?- JV- NST reactive . Leaking fluid. no pooling on exam. rom+ collected. 09/09/21 -?-?-?-?-?--?-?-?-?-?-?-?- 33w 6d 162 lb (+23 lb) 110/70 -?-?-?-?-?-?-?-?-?-?-?-?- 130 0 -?-?-?-?-?-?-?-?-?-?-?-?- -NST with vari able decels, irreg mild CTX. Reviewed per SM: ADAM today 09/13/21 -?-?-?-?-?-?-?-?-?-?-?-?- 34w 3d 164 lb (+25 lb) -?-?-?-?-?-?-?-?-?-?-?-?- 145 -?-?-?-?-?-?-?-?-?-?-?-?- - no vb lof go od fm no regular ctx 09/17/21 -?-?-?-?-?-?-?-?-?-?-?-?- 35w 0d 161 lb (+22 lb) 90/64 Negative -?-?-?-?-?-?-?-?-?-?-?-?- Negative 140 -?-?-?-?-?-?-?-?-?-?-?-?- - no vb lof go od fm no regular ctx 09/19/21 -?-?-?-?-?-?-?-?-?-?-?-?- 35w 2d 162 lb (+23 lb) 99/65 -?-?-?-?-?-?-?-?-?-?-?-?- 170 -?-?-?-?-?-?-?-?-?-?-?-?- -NST only:equi vocol with tachycardia, BPP ordered. 09/24/21 -?-?-?-?-?-?-?-?-?-?-?-?- 36w 0d 165 lb 2 oz (+26 lb 2 oz) 110/78 Negative -?-?-?-?-?-?-?-?-?-?-?-?- Negative 140 -?-?-?-?-?-?-?-?-?-?-?-?- MH-NST only reac tive 09/25/21 -?-?-?-?-?-?-?-?-?-?-?-?- 36w 1d 165 lb (+26 lb) 112/72 112/72 101/71 86/51 109/70 104/68 103/71 107/69 Negative mg/dl (Nega tive) -?-?-?-?-?-?-?-?-?-?-?-?- -?-?-?-?-?-?-?-?-?-?-?-?- ROS Constitutional Constitutional: Denies change in weight, fatigue, fever(s), headache(s), poor appetite or weakness Eyes Eyes: Denies blurry vision, change in vision, seeing flashes or spots in vision ENT HEENT: Denies dizziness, headache(s), loss taste/smell or sore throat Cardiovascular Cardiovascular: Denies chest pain, dizziness, dyspnea, irregular heart rhythm, leg edema, palpitations, rapid heart rate or vomiting Respiratory/Chest Respiratory/Chest: Denies chest tightness, cough, dyspnea or breast pain Gastrointestinal Gastrointestinal: Denies abdominal pain, anorexia, constipation, cramping, diarrhea, hemorrhoids, vomiting or weight changes Genitourinary Genitourinary: Denies dysuria, flank pain, genital lesions, genital pain, urinary frequency or urinary urgency Musculoskeletal Musculoskeletal: Denies back pain, difficulty walking, joint pain, limited range of motion, muscle cramps or numbness Integumentary Integumentary: Denies lesions or unusual bruising Neurologic Neurologic: Denies abnormal movements, abnormal speech, dizziness, numbness, seizure-like activity or syncope Psychiatric Psychiatric: Denies anxiety, behavioral changes, change in appetite, change in libido, cognitive impairment, confusion, depression, difficulty concentrating, hallucinations or suicidal thoughts Endocrine Endocrinology: Denies excessive sweating, polydipsia or polyuria Hematologic/Lymphatic Hematologic/Lymphatic: Denies easy bleeding, easy bruising or lymphadenopathy Allergic/Immunologic Allergic/Immunologic: Denies itchy eyes, lip swelling, seasonal rhinorrhea, rhinitis, throat swelling, tongue swelling, eczemia, wheezing or asthma Vital Signs Vital Signs Vital Signs: 09/25/21 15:14 09/25/21 15:23 09/25/21 18:48 Temperature 98.1 F Temperature Source Temporal Pulse Rate 97 107 H 109 H Blood Pressure 112/72 112/72 101/71 BP Systolic 112 112 101 BP Diastolic 72 72 71 Pulse Ox 98 Weight Weight: 165 lb Body Mass Index (BMI) 31.1 Physical Exam Const alert, oriented x3, no apparent distress and healthy appearing General Appearance: cooperative; Negative for anxious HEENT normocephalic Face and Sinus: normal facial exam Eyes EOMs intact bilaterally and no scleral icterus General Eye: normal appearance of both eyes Neck full ROM and supple Lymph Lymphatic: no lymphadenopathy noted Chest Chest: abnormal inspection of the chest Resp normal respiratory effort Effort and Inspection: able to speak in complete sentences Cardio regular rate GI soft to palpation and non-tender Inspection: gravid Palpation: soft; Negative for tender external exam normal Amniotic Fluid: other cx 2 cm per nurse. tracing category 1 reactive nst without decels. Back/Spine no CVA tenderness Extremity normal to inspection, full ROM and no clubbing, cyanosis or edema General Extremity: Negative for calf tenderness or edema Skin Lesions: no lesions Rashes: no rashes Psych mental status grossly normal Labs Labs Labs: Blood Type A POSITIVE Antibody Screen NEGATIVE Hct 35.7 % (37-47) L Hgb 12.1 g/dL (12.0-15.0) Obstetrics US Syphilis Total Ab Non-reactive Rubella IgG Antibody Reactive (Nonreactive) Hep Bs Antigen Non-Reactive (Nonreactive) Neisseria gonorrhoeae DNA (ARIAN) Negative (Negative) HIV 1&2 Antibody Non-Reactive (Nonreactive) C.trachomatis DNA (PCR) Negative (Negative) Glucose 1 Hr 50 gm 145 mg/dL (70-140) H Group B Strep DNA Negative (Negative) Rhogam given: No Assessment & Plan (1) Gestational diabetes: QUALIFIERS: Gestational diabetes mellitus control: diet-controlled Trimester: third trimester Qualified Code(s): O24.410 - Gestational diabetes mellitus in , diet controlled COMMENT: endocrine managing. 2x weekly nsts after 32 week growth, 36 wk growth nl, deliver at 39(not 10/15); NL US 08/27/21 PLAN: plan for q 4 hr checks now that we have checked q 1 hr for 3 hours, all levels are normal. q1 hr checks in active labor (2) Anemia affecting : QUALIFIERS: Trimester: second trimester Qualified Code(s): O99.012 - Anemia complicating , second trimester COMMENT: iron started (3) Antiphospholipid antibody syndrome complicating : COMMENT: Lovenox and baby ASA, baseline ur pr/cr and cmp. plan third trimester testing PLAN: holding anticoagulation now unless labor completely stops and in that case, if sent home will initiate heparin. (4) Supervision of high risk , antepartum: COMMENT: PRR DONALD:10/22/21 surprise PC: Kian Spouse: Enrique Churchill) (5) : QUALIFIERS: Weeks of gestation: 35 weeks Qualified Code(s): Z3A.35 - 35 weeks gestation of COMMENT: genetic, carrier, and ntd screening declined. nl anatomy (6) Prior with demise: COMMENT: at 15 weeks gestation (7) Threatened labor: PLAN: plan for gbs culture and to start vanc in meantime due to anaphylaxis to pcn. Plan to continue procardia 10 mg q 6 for next at least 12 hrs, possibly 24 hrs to allow for steroids and lovenox half life. Documented by User: Dr. Samantha Lee MD 09/26/21 15:07 HPI - General General Date of Admission: 09/25/21 Maternal Data Information DONALD Calculator Estimated Delivery Date Method Current WG Current Estimate 10/22/21 LMP (Certain) 36w 2d PFSH PFSH Medical History Anti-cardiolipin antibody positive Gave to child recently Hemorrhoids Marginal placenta previa Prior with demise Home Medications vitamin#30 30 mg iron-10 mg iron-folic acid 1 mg-omg3 capsule 1 cap PO DAILY 12/03/20 [History Last Taken Unknown] aspirin 81 mg tablet,delayed release 81 mg PO DAILY 03/04/21 [History Last Taken 09/24/21 21:00] pen needle, diabetic 32 gauge x 5/32 #50 ea 08/07/21 [Rx Last Taken Unknown] insulin lispro 100 unit/mL subcutaneous pen 15 unit SUBCUT .supper #3 ml 09/18/21 [Rx Last Taken Unknown] enoxaparin [Lovenox] 40 mg SC DAILY 09/25/21 [History Last Taken 09/25/21 09:00] insulin NPH isoph U-100 human [Humulin N NPH Insulin KwikPen] 20 unit SUBCUT HS 09/25/21 [History Last Taken 09/24/21 21:00] iron supplementation 1 cap PO DAILY 09/25/21 [History Last Taken 09/24/21 12:00] Allergy/AdvReac Type Severity Reaction Status Date / Time amoxicillin Allergy Mild Anaphylaxis Verified 09/25/21 15:18 ibuprofen [From Motrin] Allergy Mild Hives Verified 09/25/21 15:18 Family History Unknown Breast cancer Surgical History History of appendectomy Social History household members: family housing: house number of children: 1 current occupational status: employed 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 Date Name GA/Weeks Outcome Route Bth Weight Infant Gen Labor Lgth Anesthesia Del Locatn Provider FOB 02/23/19 Kaid 40 live - full term 8lbs 8oz Male 18 h ours epidural [facility] JOSE J enrique Delivery Date: 02/23/19 2 DEGREE LAC Jacque Villareal Visit Details Expected Delivery Route/Plan Labor Preferences- CB/BF classes: no labor support person: Enrique labor intervention preferences: [] pain management options preferred: epidural cut cord/dad catch: cord : yes PP control planned: IUD discussed possible routes of delivery and associated risks: [] special requests: [] Plans covid status: non immune, counseled regarding risk of covid in vs vaccination and considering flu vaccine: with employer tdap vaccine: given rhogam: na LARC form signed: yes movement and labor precautions reviewed. Problem list reviewed and updated with the most current plan of care details and appropriate orders placed. Relevant counseling for the gestational age provided. Continue routine care and follow up unless otherwise noted in visit notes/problem list details OB Flowsheet Initial Weight: 139 lb Date -?-?-?-?-?-?-?-?-?-?-?-?- EGA Weight BP Urine Prot -?-?-?-?-?-?-?-?-?-?-?-?- Glucose FHR FuHt Pres Dilation -?-?-?-?-?-?-?-?-?-?-?-?- Effaced St Visit Note 03/27/21 -?-?-?-?-?-?-?-?-?-?-?-?- 10w 1d 141 lb 2 oz (+2 lb 2 oz) 114/74 -?-?-?-?-?-?-?-?-?-?-?-?- 163 -?-?-?-?-?-?-?-?-?-?-?-?- GP - no cramping or bleeding. Doing well with lovenox injections. 04/09/21 -?-?-?-?-?-?-?-?-?-?-?-?- 12w 0d 141 lb (+2 lb) 100/60 Negative -?-?-?-?-?-?-?-?-?-?-?-?- Negative 168 -?-?-?-?-?-?-?-?-?-?-?-?- MH-No Vb, LOF. Anatomy US scheduled. Will do labs today. Nausea resolved. 04/22/21 -?-?-?-?-?-?-?-?-?-?-?-?- 13w 6d 143 lb (+4 lb) 116/70 122/80 -?-?-?-?-?-?-?-?-?-?-?-?- 153 -?-?-?-?-?-?-?-?-?-?-?-?- MH-Active IUP on US. Denies VB, LOF. Anatomy US scheduled 05/20/21 -?-?-?-?-?-?-?-?-?-?-?-?- 17w 6d 145 lb (+6 lb) 100/72 Negative -?-?-?-?-?-?-?-?-?-?-?-?- Negative 150 -?-?-?-?-?-?-?-?-?-?-?-?- SM- no vb crampi ng some right side discomfrt 06/19/21 -?-?-?-?-?-?-?-?-?-?-?-?- 22w 1d 150 lb 4 oz (+11 lb 4 oz) 100/66 -?-?-?-?-?-?-?-?-?-?-?-?- 150 -?-?-?-?-?-?-?-?-?-?-?-?- GP - no LOF, VB, DFM. Discussed marginal previa. F/u US ordered. 06/21/21 -?-?-?-?-?-?-?-?-?-?-?-?- 22w 3d 151 lb (+12 lb) 114/64 -?-?-?-?-?-?-?-?-?-?-?-?- 160 -?-?-?-?-?-?-?-?-?-?-?-?- GP - work in for back pain and SOB. Pulse ox and pulse nl. Back pain likely musculoskeletal. Discussed safe meds. 07/18/21 -?-?-?-?-?-?-?-?-?-?-?-?- 26w 2d 154 lb (+15 lb) 102/64 Negative -?-?-?-?-?-?-?-?-?-?-?-?- Negative 150 29 -?-?-?-?-?-?-?-?-?-?-?-?- Sm- no vb lof go od fm no reuglar ctx fu us ordered discussed vaccination 07/30/21 -?-?-?-?-?-?-?-?-?-?-?-?- 28w 0d 157 lb 4 oz (+18 lb 4 oz) 100/70 Negative -?-?-?-?-?-?-?-?-?-?-?-?- Negative 151 29 -?-?-?-?-?-?-?-?-?-?-?-?- MH-No VB, LOF. G ood FM. Bllod glucose wnl, Sees Dr Treviño. US today to recheck placenta. Tdap, larc. Taking Fe 08/15/21 -?-?-?-?-?-?-?-?-?-?-?-?- 30w 2d 158 lb (+19 lb) 100/72 Negative -?-?-?-?-?-?-?-?-?-?-?-?- Negative 140 31 -?-?-?-?-?-?-?-?-?-?-?-?- SM- no vb lof go od fm no regular ctx.reviewed insulin and BS now. start increased testing 32 weeks. 08/26/21 -?-?-?-?-?-?-?-?-?-?-?-?- 31w 6d 160 lb (+21 lb) 110/70 Negative -?-?-?-?-?-?-?-?-?-?-?-?- Negative 140 -?-?-?-?-?-?-?-?-?-?-?-?- SM- no vb lof go od fm no regular ctx 08/28/21 -?-?-?-?-?-?-?-?-?-?-?-?- 32w 1d 161 lb (+22 lb) 108/70 Negative -?-?-?-?-?-?-?-?-?-?-?--?- Negative 140 -?-?-?-?-?-?-?-?-?-?-?-?- MH NST only reac tive 09/03/21 -?-?-?-?-?-?-?-?-?-?-?-?- 33w 0d 160 lb 2 oz (+21 lb 2 oz) 110/70 -?-?-?-?-?-?-?-?-?-?-?-?- 150 -?-?-?-?-?-?-?-?-?-?-?-?- MH-reactive NST. BS WNL >50% time. No VB, LOF. Good FM 09/05/21 -?-?-?-?-?-?-?-?-?-?-?-?- 33w 2d 161 lb 4 oz (+22 lb 4 oz) 96/60 Negative -?-?-?-?-?-?-?-?-?-?-?-?- Negative 130 33 -?-?-?-?-?-?-?-?-?-?-?-?- JV- NST reactive . Leaking fluid. no pooling on exam. rom+ collected. 09/09/21 -?-?-?-?-?-?-?-?-?-?-?-?- 33w 6d 162 lb (+23 lb) 110/70 -?-?-?-?-?-?-?-?-?-?-?-?- 130 0 -?-?-?-?-?-?-?-?-?-?-?-?- MH-NST with vari able decels, irreg mild CTX. Reviewed per SM: ADAM today 09/13/21 -?-?-?-?-?-?-?-?-?-?-?-?- 34w 3d 164 lb (+25 lb) -?-?-?-?-?-?-?-?-?-?-?-?- 145 -?-?-?-?-?-?-?--?-?-?-?-?- Sm- no vb lof go od fm no regular ctx 09/17/21 -?-?-?-?-?-?-?-?-?-?-?-?- 35w 0d 161 lb (+22 lb) 90/64 Negative -?-?-?-?-?-?-?-?-?-?-?-?- Negative 140 -?-?-?-?-?-?-?-?-?-?-?-?- SM- no vb lof go od fm no regular ctx 09/19/21 -?-?-?-?-?-?-?-?-?-?-?-?- 35w 2d 162 lb (+23 lb) 99/65 -?-?-?-?-?-?-?-?-?-?-?-?- 170 -?-?-?-?-?-?-?-?-?-?-?-?- -NST only:equi vocol with tachycardia, BPP ordered. 09/24/21 -?-?-?-?-?-?-?-?-?-?-?-?- 36w 0d 165 lb 2 oz (+26 lb 2 oz) 110/78 Negative -?-?-?-?-?-?-?-?-?-?-?-?- Negative 140 -?-?-?-?-?-?-?-?-?-?-?-?- -NST only reac tive 09/25/21 -?-?-?-?-?-?-?-?-?-?-?-?- 36w 1d 165 lb (+26 lb) 112/72 112/72 101/71 86/51 109/70 104/68 103/71 107/69 Negative mg/dl (Nega tive) -?-?-?-?-?-?-?-?-?-?-?-?- -?-?-?-?-?-?-?-?-?-?-?-?- Labs Labs Labs: Blood Type A POSITIVE Antibody Screen NEGATIVE Hct 35.7 % (37-47) L Hgb 12.1 g/dL (12.0-15.0) Obstetrics US Syphilis Total Ab Non-reactive Rubella IgG Antibody Reactive (Nonreactive) Hep Bs Antigen Non-Reactive (Nonreactive) Neisseria gonorrhoeae DNA (ARIAN) Negative (Negative) HIV 1&2 Antibody Non-Reactive (Nonreactive) C.trachomatis DNA (PCR) Negative (Negative) Glucose 1 Hr 50 gm 145 mg/dL (70-140) H Group B Strep DNA Negative (Negative) Rhogam given: No
--- NOTE | 2021-09-25 20:49 | PCM.RX.CS ---
Consult Pharmacy has been consulted to manage selected antiobiotic: Vancomycin Type of Consult: New start Prior Doses of Antibiotics Received/Current Regimen: New order for (1500mg) 20mg/kg iv q8h. Microbiology: Microbiology 09/25/21 19:30 Nasal Secretion SARS-CoV-2 Antigen (Rapid) - Final Weight used for dosin.8 kg Goal Trough: 10-15 mcg/mL Pharmacy Plan for Drug Dosing: Will continue same order of 1500mg iv q8h. Trough level ordered for before 4th dose per protocol. Pharmacy Service will continue to monitor and adjust dosing as required. Follow-Up Labs: Trough Vancomycin - 11.18.21@1930 before 2000 dose
[2021-09-25] MEDS: Betamethasone/Betamethasone 30 MG/5 ML Vial 12 MG IM (21:18)
[2021-09-25] MEDS: Zolpidem Tartrate 5 MG Tablet PO (21:18)
[2021-09-25 22:15] LABS: Group B Strep DNA By PCR Negative (Negative); Internal Control PASS; Probe Check PASS; Specimen Processing Control PASS
[2021-09-25 23:27] VITALS: BP 86/51; PULSE 96; TEMP 35.6; O2SAT 97
[2021-09-25 23:35] VITALS: BP 109/70; PULSE 95
[2021-09-25 23:46] LABS: Bedside Glucose 92 mg/dL (70-110)
[2021-09-26 04:01] VITALS: BP 104/68; PULSE 103; O2SAT 97
[2021-09-26 04:02] VITALS: TEMP 36.6
[2021-09-26 04:15] LABS: Bedside Glucose 90 mg/dL (70-110)
[2021-09-26] MEDS: 0.9% Saline Lock 10 ML Syringe IV (04:17)
[2021-09-26] MEDS: Lactated Ringers 1,000 ML 999 ML IV (04:18)
[2021-09-26] MEDS: NIFEdipine 10 MG Capsule PO (05:45)
[2021-09-26 07:26] VITALS: TEMP 36.1; O2SAT 98; O2SAT 99
[2021-09-26 07:27] VITALS: BP 103/71; PULSE 105
[2021-09-26 07:46] LABS: Bedside Glucose 102 mg/dL (70-110)
--- NOTE | 2021-09-26 09:04 | PCM.PN.OB ---
Documented by User: Dr. Nikkie Faustin, DO 09/26/21 09:11 Subjective Subjective Patient is sitting up in bed stating that she feels starving and contractions have lessoned over night. Her nurse at 6:30 informed me that contractions spaced out to every 14 minutes at times. However, her am nurse states that they are irregular and starting to be a little more bothersome only when she sits up. She denies lof, vaginal bleeding, or dec fm. Objective Data Objective Data Vital Signs: Vital Signs Temp Pulse BP Pulse Ox 96.9 F L 105 H 103/71 99 09/26/21 07:26 09/26/21 07:27 09/26/21 07:27 09/26/21 07:26 Weight: 165 lb Body Mass Index (BMI) 31.1 Intake & Output: Intake and Output for Last 24 Hours 09/24/21 09/25/21 09/26/21 23:59 23:59 23:59 Intake Total 1530 / 1530 416.25 / 416.25 Balance 1530 / 1530 416.25 / 416.25 Lab / Micro Data Result Diagrams: 09/25/21 18:20 Labs: Laboratory Results - last 24 hr 09/25/21 15:31: POC Glucose 118 H 09/25/21 17:00: Urine Color Straw, Urine Clarity Cloudy, Urine pH 6.5, Ur Specific [place] 1.010, Urine Protein Negative, Urine Glucose (UA) Normal, Urine Ketones Negative, Urine Occult Blood 50 H, Urine Nitrite Negative, Urine Bilirubin Negative, Urine Urobilinogen Normal, Ur Leukocyte Esterase Negative 09/25/21 18:20: WBC 8.2, RBC 4.03 L, Hgb 12.1, Hct 35.7 L, MCV 88.6, MCH 30.0, MCHC 33.9, RDW Std Deviation 44.6 H, RDW Coeff of [place] 13.6, Plt Count 165, MPV 10.4, Immature Gran % (Auto) 0.400, Neut % (Auto) 59.1, Lymph % (Auto) 31.2, [place] % (Auto) 8.8, Eos % (Auto) 0.4, Baso % (Auto) 0.1, Absolute Neuts (auto) 4.8, Absolute Lymphs (auto) 2.54, Nucleated RBC % 0 09/25/21 18:20: Blood Type A POSITIVE, Antibody Screen NEGATIVE 09/25/21 18:41: POC Glucose 69 L 09/25/21 19:45: POC Glucose 89 09/25/21 20:50: Group B Strep DNA Negative, Specimen Comment Not Reportable 09/25/21 23:31: POC Glucose 92 09/26/21 04:00: POC Glucose 90 09/26/21 07:32: POC Glucose 102 Micro: Microbiology 09/25/21 19:30 Nasal Secretion SARS-CoV-2 Antigen (Rapid) - Final ROS Constitutional Constitutional: Denies change in weight, fatigue, fever(s), headache(s), poor appetite or weakness Eyes Eyes: Denies blurry vision, change in vision, seeing flashes or spots in vision ENT HEENT: Denies dizziness, headache(s), loss taste/smell or sore throat Cardiovascular Cardiovascular: Denies chest pain, dizziness, dyspnea, irregular heart rhythm, leg edema, palpitations, rapid heart rate or vomiting Respiratory/Chest Respiratory/Chest: Denies chest tightness, cough, dyspnea or breast pain Gastrointestinal Gastrointestinal: Denies abdominal pain, anorexia, constipation, cramping, diarrhea, hemorrhoids, vomiting or weight changes Genitourinary Genitourinary: Denies dysuria, flank pain, genital lesions, genital pain, urinary frequency or urinary urgency Musculoskeletal Musculoskeletal: Denies back pain, difficulty walking, joint pain, limited range of motion, muscle cramps or numbness Integumentary Integumentary: Denies lesions or unusual bruising Neurologic Neurologic: Denies abnormal movements, abnormal speech, dizziness, numbness, seizure-like activity or syncope Psychiatric Psychiatric: Denies anxiety, behavioral changes, change in appetite, change in libido, cognitive impairment, confusion, depression, difficulty concentrating, hallucinations or suicidal thoughts Endocrine Endocrinology: Denies excessive sweating, polydipsia or polyuria Hematologic/Lymphatic Hematologic/Lymphatic: Denies easy bleeding, easy bruising or lymphadenopathy Allergic/Immunologic Allergic/Immunologic: Denies itchy eyes, lip swelling, seasonal rhinorrhea, rhinitis, throat swelling, tongue swelling, eczemia, wheezing or asthma Physical Exam Const alert, oriented x3, no apparent distress and healthy appearing General Appearance: cooperative; Negative for anxious HEENT normocephalic Eyes EOMs intact bilaterally and no scleral icterus General Eye: normal appearance of both eyes Neck full ROM and supple Lymph Lymphatic: no lymphadenopathy noted Chest Chest: abnormal inspection of the chest Resp normal respiratory effort Effort and Inspection: able to speak in complete sentences Cardio regular rate GI soft to palpation and non-tender Inspection: gravid Palpation: soft; Negative for tender external exam normal Amniotic Fluid: other cx 2 cm per nurse. tracing category 1 reactive nst without decels. Back/Spine no CVA tenderness Extremity normal to inspection, full ROM and no clubbing, cyanosis or edema General Extremity: Negative for calf tenderness or edema Skin Lesions: no lesions Rashes: no rashes Psych mental status grossly normal NST FHR Rate Baby A Baseline: 120 Variability:: Moderate Accelerations:: 15 x 15 FHR Category:: Category I Uterine Activity:: q3-15 minutes Assessment & Plan (1) Gestational diabetes: QUALIFIERS: Gestational diabetes mellitus control: diet-controlled Trimester: third trimester Qualified Code(s): O24.410 - Gestational diabetes mellitus in , diet controlled COMMENT: endocrine managing. 2x weekly nsts after 32 week growth, 36 wk growth nl, deliver at 39(not 10/15); [facility] 08/27/21 PLAN: now that labor has stalled out will need fasting and 2 hr pp blood sugars. restart NPH insulin tonight if still not in labor (2) Anemia affecting : QUALIFIERS: Trimester: second trimester Qualified Code(s): O99.012 - Anemia complicating , second trimester COMMENT: iron started (3) Antiphospholipid antibody syndrome complicating : COMMENT: Lovenox and baby ASA, baseline ur pr/cr and cmp. plan third trimester testing PLAN: holding anticoagulation now unless labor completely stops and in that case, if sent home will initiate heparin. (4) Supervision of high risk , antepartum: COMMENT: PRR DONALD:10/22/21 surprise PC: Kian Spouse: Enrique Churchill) (5) : QUALIFIERS: Weeks of gestation: 35 weeks Qualified Code(s): Z3A.35 - 35 weeks gestation of COMMENT: genetic, carrier, and ntd screening declined. nl anatomy (6) Prior with demise: COMMENT: at 15 weeks gestation (7) Threatened labor: PLAN: GBS neg- stop vanc Continue procardia until we reach 24 hr regulo from start to allow full affect of steroids. second dose may cause more harm than good after 36 weeks and gestational diabetes. will not be giving a second dose unless patient insists. at that point we will have a further discussion re-assess at noon time today and plan to re-check cervical exam prior to any plan to dc home Documented by User: Dr. Samantha Lee MD 09/26/21 15:08 Subjective Subjective patient seen adn evaluated by Dr Lee and Dr Faustin and both concur of hpi, pe, and A/P Objective Data Lab / Micro Data Result Diagrams: 09/25/21 18:20
[2021-09-26 11:00] LABS: Bedside Glucose 131 mg/dL (70-110)
[2021-09-26 13:06] VITALS: BP 107/69; PULSE 109; TEMP 36.6
[2021-09-26 13:17] LABS: Bedside Glucose 137 mg/dL (70-110)
[2021-09-26] MEDS: Acetaminophen 500 MG Tablet 1000 MG PO (16:47)
--- NOTE | 2021-09-26 16:57 | PCM.DC.SUM ---
Documented by User: Dr. Nikkie Yarbrough DO 09/26/21 17:04 Providers Date of Admission: 09/25/21 Primary Care Physician: Dr. Ana Purcell MD Reason For Visit: R/O LABOR Diagnosis Discharge Diagnosis (1) Gestational diabetes: Status: Acute Code(s): O24.419 - Gestational diabetes mellitus in , unspecified control Qualifiers: Gestational diabetes mellitus control: diet-controlled Trimester: third trimester Qualified Code(s): O24.410 - Gestational diabetes mellitus in , diet controlled (2) Anemia affecting : Status: Acute Code(s): O99.019 - Anemia complicating , unspecified trimester Qualifiers: Trimester: second trimester Qualified Code(s): O99.012 - Anemia complicating , second trimester (3) Antiphospholipid antibody syndrome complicating : Status: Acute Code(s): O99.119 - Other diseases of the blood and blood-forming organs and certain disorders involving the immune mechanism complicating , unspecified trimester; D68.61 - Antiphospholipid syndrome (4) Supervision of high risk , antepartum: Status: Acute Code(s): O09.90 - Supervision of high risk , unspecified, unspecified trimester (5) : Status: Acute Code(s): Z34.90 - Encounter for supervision of normal , unspecified, unspecified trimester Qualifiers: Weeks of gestation: 35 weeks Qualified Code(s): Z3A.35 - 35 weeks gestation of (6) Prior with demise: Status: Acute Code(s): O09.299 - Supervision of with other poor reproductive or obstetric history, unspecified trimester (7) Threatened labor: Status: Acute Code(s): O47.00 - False labor before 37 completed weeks of gestation, unspecified trimester Medications at Discharge Home Medications vitamin#30 30 mg iron-10 mg iron-folic acid 1 mg-omg3 capsule 1 cap PO DAILY 12/03/20 aspirin 81 mg tablet,delayed release 81 mg PO DAILY 03/04/21 pen needle, diabetic 32 gauge x /32 #50 ea 08/07/21 insulin lispro 100 unit/mL subcutaneous pen 15 unit SUBCUT .supper #3 ml 09/18/21 insulin NPH isoph U-100 human [Humulin N NPH Insulin KwikPen] 20 unit SUBCUT HS 09/25/21 iron supplementation 1 cap PO DAILY 09/25/21 heparin (porcine) 5,000 unit SUBCUT Q12H 21 Days #42 ml 09/26/21 Hospital Course Summary of Care Provided Hospital Course: Little was admitted for observation for threatened labor x 24 hours. she did not make cervical change but did have complaints of ongoing mild contractions. She was given celestone and gbs was collected (note to negative). after 24 hrs she was sent home for pelvic rest and return when in active labor. Physical Exam Const alert, oriented x3, no apparent distress and healthy appearing General Appearance: cooperative; Negative for anxious HEENT normocephalic Eyes EOMs intact bilaterally and no scleral icterus General Eye: normal appearance of both eyes Neck full ROM and supple Lymph Lymphatic: no lymphadenopathy noted Chest Chest: abnormal inspection of the chest Resp normal respiratory effort Effort and Inspection: able to speak in complete sentences Cardio regular rate GI soft to palpation and non-tender Inspection: gravid Palpation: soft; Negative for tender external exam normal Amniotic Fluid: other cx 2 cm per nurse. tracing category 1 reactive nst without decels. Back/Spine no CVA tenderness Extremity normal to inspection, full ROM and no clubbing, cyanosis or edema General Extremity: Negative for calf tenderness or edema Skin Lesions: no lesions Rashes: no rashes Psych mental status grossly normal Weight / BMI Weight Weight: 165 lb Body Mass Index (BMI) 31.1 ABG / Lab / Microbiology Data Result Diagrams: 09/25/21 18:20 Laboratory: Laboratory Results - last 24 hr 09/25/21 17:00: Urine Color Straw, Urine Clarity Cloudy, Urine pH 6.5, Ur Specific [place] 1.010, Urine Protein Negative, Urine Glucose (UA) Normal, Urine Ketones Negative, Urine Occult Blood 50 H, Urine Nitrite Negative, Urine Bilirubin Negative, Urine Urobilinogen Normal, Ur Leukocyte Esterase Negative 09/25/21 18:20: WBC 8.2, RBC 4.03 L, Hgb 12.1, Hct 35.7 L, MCV 88.6, MCH 30.0, MCHC 33.9, RDW Std Deviation 44.6 H, RDW Coeff of [place] 13.6, Plt Count 165, MPV 10.4, Immature Gran % (Auto) 0.400, Neut % (Auto) 59.1, Lymph % (Auto) 31.2, [place] % (Auto) 8.8, Eos % (Auto) 0.4, Baso % (Auto) 0.1, Absolute Neuts (auto) 4.8, Absolute Lymphs (auto) 2.54, Nucleated RBC % 0 09/25/21 18:20: Blood Type A POSITIVE, Antibody Screen NEGATIVE 09/25/21 18:41: POC Glucose 69 L 09/25/21 19:45: POC Glucose 89 09/25/21 20:50: Group B Strep DNA Negative, Specimen Comment Not Reportable 09/25/21 23:31: POC Glucose 92 09/26/21 04:00: POC Glucose 90 09/26/21 07:32: POC Glucose 102 09/26/21 10:53: POC Glucose 131 H 09/26/21 13:04: POC Glucose 137 H Microbiology: Microbiology 09/25/21 19:30 Nasal Secretion SARS-CoV-2 Antigen (Rapid) - Final D/C Instructions Discharge Diet: Carb Control Diet Lifting Restricted to (Lbs): 10 Additional Instructions: return to office is contractions are 5 min apart or less, can not walk or talk with contractions. Return if vaginal bleeding, leaking fluid, or decreased movement Please Follow Up With: Samantha lee When: 1 week Discharge Plan Admission Admit Date/Time: 09/25/21 17:50 Primary Reason for Your Visit: threatened labor Attending Provider: Nikkie Yarbrough Primary Care Provider: Ana Purcell Instructions Patient Instructions: Understanding Labor Discharge Orders/Prescriptions Prescriptions: New heparin (porcine) 5,000 unit/mL (1 mL) cartridge 5,000 unit subcut Q12H 21 Days Qty: 42 RF: 0 Discontinued enoxaparin [Lovenox] 40 mg/0.4 mL syringe 40 mg SC DAILY RF: 0 No Action vitamin#30 30 mg iron-10 mg iron-folic acid 1 mg-omg3 capsule 30 mg iron-10 mg iron-1 mg capsule 1 cap PO DAILY RF: 0 aspirin 81 mg tablet,delayed release (DR/EC) 81 mg PO DAILY RF: 0 Humulin N NPH Insulin KwikPen 100 unit/mL (3 mL) insulin pen 20 unit subcut HS RF: 0 iron supplementation 1 cap PO DAILY RF: 0 (DME) pen needle, diabetic [BD Ultra-Fine Estefania Pen Needle] 32 gauge x 5/32 needle See Rx Instructions .ROUTE .MEDSUPPLY Qty: 50 RF: 3 insulin lispro [Humalog KwikPen Insulin] 100 unit/mL insulin pen 15 unit subcut .supper Qty: 3 RF: 3 Referrals / Follow Up: Ana Purcell MD [Primary Care Provider] - Disposition Disposition (needs filled in before D/C Order can be placed): Home, Self Care Documented by User: Dr. Samantha Lee MD 09/26/21 17:12 Providers Date of Admission: 09/25/21 Reason For Visit: R/O LABOR Medications at Discharge Home Medications vitamin#30 30 mg iron-10 mg iron-folic acid 1 mg-omg3 capsule 1 cap PO DAILY 12/03/20 aspirin 81 mg tablet,delayed release 81 mg PO DAILY 03/04/21 pen needle, diabetic 32 gauge x 5/32 #50 ea 08/07/21 insulin lispro 100 unit/mL subcutaneous pen 15 unit SUBCUT .supper #3 ml 09/18/21 insulin NPH isoph U-100 human [Humulin N NPH Insulin KwikPen] 20 unit SUBCUT HS 09/25/21 iron supplementation 1 cap PO DAILY 09/25/21 heparin (porcine) 5,000 unit SUBCUT Q12H 21 Days #42 ml 09/26/21 ABG / Lab / Microbiology Data Result Diagrams: 09/25/21 18:20 Meaningful Use Info Meaningful Use Diagnoses (Choose all that apply): None applicable Discharge Plan Admission Admit Date/Time: 09/25/21 17:50 Primary Reason for Your Visit: threatened labor Attending Provider: Nikkie Yarbrough Primary Care Provider: Ana Purcell Instructions Patient Instructions: Understanding Labor Discharge Orders/Prescriptions Prescriptions: New heparin (porcine) 5,000 unit/mL (1 mL) cartridge 5,000 unit subcut Q12H 21 Days Qty: 42 RF: 0 Discontinued enoxaparin [Lovenox] 40 mg/0.4 mL syringe 40 mg SC DAILY RF: 0 No Action vitamin#30 30 mg iron-10 mg iron-folic acid 1 mg-omg3 capsule 30 mg iron-10 mg iron-1 mg capsule 1 cap PO DAILY RF: 0 aspirin 81 mg tablet,delayed release (DR/EC) 81 mg PO DAILY RF: 0 Humulin N NPH Insulin KwikPen 100 unit/mL (3 mL) insulin pen 20 unit subcut HS RF: 0 iron supplementation 1 cap PO DAILY RF: 0 (DME) pen needle, diabetic [BD Ultra-Fine Estefania Pen Needle] 32 gauge x 5/32 needle See Rx Instructions .ROUTE .MEDSUPPLY Qty: 50 RF: 3 insulin lispro [Humalog KwikPen Insulin] 100 unit/mL insulin pen 15 unit subcut .supper Qty: 3 RF: 3 Referrals / Follow Up: Ana Purcell MD [Primary Care Provider] - Disposition Disposition (needs filled in before D/C Order can be placed): Home, Self Care
[2021-09-26 17:05] LABS: Bedside Glucose 83 mg/dL (70-110)
[2021-09-26 17:52] VITALS: BP 119/70; PULSE 105
[2021-09-26] MEDS: Heparin Injection (Vial) 5,000 UNIT/ML VIAL 5000 UNIT SC (17:53)
== END 2021-09-26 18:06 | disposition home or self-care (01) | DRG 832 ==
LOC: WPOUT 17:54 → WP 17:54
PROVIDERS: Admitting Provider Obstetrics & Gynecology; PCP Family Medicine; Visit Provider Obstetrics & Gynecology
DX: O60.03 Preterm labor without delivery, third trimester (principal); O99.113 Other diseases of the blood and blood-forming organs and certain disorders involving the immune mechanism complicating pregnancy, third trimester; D68.61 Antiphospholipid syndrome; O24.410 Gestational diabetes mellitus in pregnancy, diet controlled; O99.013 Anemia complicating pregnancy, third trimester; D64.9 Anemia, unspecified; Z3A.36 36 weeks gestation of pregnancy
CPT/HCPCS: 59025; 59050; 81002; 82962; 85025; 86850; 86900; 86901; 87081; 87086; 87088; 87426; 87653; J7040; J7120; A4216; J0702

== ENCOUNTER 2021-10-09 21:57 | Inpatient (IN) | payer OTHER, SELFPAY ==
[2021-10-09 20:57] VITALS: PULSE 102; TEMP 36.5; O2SAT 96
[2021-10-09 20:59] VITALS: BP 109/70; PULSE 102
[2021-10-09 21:14] VITALS: BMI 30.7
[2021-10-09 21:25] LABS: Bedside Glucose 98 mg/dL (70-110)
[2021-10-09 21:42] LABS: ROM Internal Control Test YES-OK TO RESULT pt. (Internal QC)
[2021-10-09 21:43] LABS: ROM Patient Test POSITIVE (Negative)
[2021-10-09] MEDS: Lactated Ringers 1,000 ML 50 ML IV (22:16)
[2021-10-09 22:21] VITALS: TEMP 36.4
[2021-10-09 22:22] VITALS: BP 105/63; PULSE 100; PULSE 99; O2SAT 96
[2021-10-09 22:51] LABS: Bedside Glucose 98 mg/dL (70-110)
[2021-10-09] MEDS: Lactated Ringers 500 ML 999 ML IV (22:53)
[2021-10-09 22:54] LABS: Absolute Lymphocyte Count 2.89 X10^3/uL (0.83-4.51); Absolute Neutrophil Count 4.5 X10^3/uL (2.0-7.7); Basophil# 0.03 X10^3/uL; Basophil% 0.4 % (0-1); Eosinophil# 0.06 X10^3/uL; Eosinophils% 0.7 % (0-5); Hematocrit 36.9 % (37-47); Hemoglobin 12.5 g/dL (12.0-15.0); Lymphocyte # 2.89 X10^3/ul (0.83-4.51); Lymphocyte % 34.9 % (19-41); Mean Corp Hgb Conc 33.9 g/dL (32-36); Mean Corpuscular Volume 88.5 fL (81-99); Mean Platelet Vol. 10.5 fl (6.2-12.0); Monocyte# 0.75 X10^3/uL; Monocyte% 9.1 % (0-10); NRBC Flagged by Analyzer 0 % (0-5); Neutrophil # 4.52 X10^3/uL (2.7-7.7); Neutrophil % 54.5 % (47-70); Platelet Count 184 K/mm3 (150-450); RBC Distribution Width CV 13.4 % (11.6-14.6); RBC Distribution Width SD 43.6 fl (35.1-43.9); Red Blood Count 4.17 M/mm3 (4.2-5.4); White Blood Count 8.3 K/mm3 (4.4-11.0)
[2021-10-10] VITALS (94 sets, daily range): BP systolic 63–121; BP diastolic 40–80; PULSE 67–118; RESP 16–18; TEMP 35.7–36.4; O2SAT 94–99
[2021-10-10] MEDS: fentaNYL-bupivacaine (epidural) 100 ML BAG EPIDURAL ×2 (01:10→06:50)
[2021-10-10] MEDS: Lactated Ringers 500 ML 999 ML IV ×3 (01:21→07:55)
[2021-10-10 02:31] LABS: Bedside Glucose 80 mg/dL (70-110)
[2021-10-10] MEDS: Oxytocin 30 units/NS 500 ml 30 UNITS/500 ML IV.SOLN IV (03:06)
[2021-10-10] MEDS: Lactated Ringers 1,000 ML 200 ML IV ×2 (03:33→09:23)
[2021-10-10 06:30] LABS: Bedside Glucose 88 mg/dL (70-110)
--- NOTE | 2021-10-10 07:55 | HP.PCM.OB_ITS ---
HPI - General General Date of Admission: 10/09/21 HPI Froy ENRIQUEZ, is a 31 @ 38 weeks 1 day who presents with grossly ruptured membranes. She denies vaginal bleeding, contractions, or decreased movement. Her has been complicated with gestational diabetes on insulin. She is also taking heparin for antiphospholidpid antibody syndrome and a history of a 2nd trimester loss. Maternal Data Information DONALD Calculator Estimated Delivery Date Method Current WG Current Estimate 10/22/21 LMP (Certain) 38w 2d PFSH PFS Medical History (Updated 10/09/21 @ 21:34 by Nereida Carlson) Anti-cardiolipin antibody positive Blood clotting disorder Gave to child recently Hemorrhoids Marginal placenta previa depression Prior with demise Home Medications vitamin#30 30 mg iron-10 mg iron-folic acid 1 mg-omg3 capsule 1 cap PO DAILY 12/03/20 [History Last Taken 10/08/21 22:00] aspirin 81 mg tablet,delayed release 81 mg PO DAILY 03/04/21 [History Last Taken 10/08/21 22:00] pen needle, diabetic 32 gauge x /32 #50 ea 08/07/21 [Rx Last Taken Unknown] insulin lispro 100 unit/mL subcutaneous pen 15 unit SUBCUT .supper #3 ml 09/18/21 [Rx Last Taken Unknown] insulin NPH isoph U-100 human [Humulin N NPH Insulin KwikPen] 16 unit SUBCUT HS 09/25/21 [History Last Taken 10/08/21 22:00] heparin (porcine) 5,000 unit SUBCUT Q12H 21 Days #42 ml 09/26/21 [Rx Last Taken 10/08/21 22:00] ferrous sulfate 325 mg (65 mg iron) tablet 325 mg PO DAILY 10/04/21 [History Last Taken Unknown] Allergy/AdvReac Type Severity Reaction Status Date / Time amoxicillin Allergy Mild Anaphylaxis Verified 10/07/21 09:40 ibuprofen [From Motrin] Allergy Mild Hives Verified 10/07/21 09:40 Family History Unknown Breast cancer Surgical History History of appendectomy Social History household members: family housing: house number of children: 1 current occupational status: employed 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 Date Name GA/Weeks Outcome Route Bth Weight Gen Labor Lgth Anesthesia Del Locatn Provider FOB 02/23/19 Kaid 40 live - full term 8lbs 8oz Male 18 h ours epidural [employer] JOSE J enrique Delivery Date: 02/23/19 2 DEGREE LAC Jacque Villareal Visit Details Expected Delivery Route/Plan Labor Preferences- CB/BF classes: no labor support person: Enrique labor intervention preferences: [] pain management options preferred: epidural cut cord/dad catch: cord : yes PP control planned: IUD discussed possible routes of delivery and associated risks: [] special requests: [] Plans covid status: non immune, counseled regarding risk of covid in vs vaccination and considering flu vaccine: with employer tdap vaccine: given rhogam: na LARC form signed: yes movement and labor precautions reviewed. Problem list reviewed and updated with the most current plan of care details and appropriate orders placed. Relevant counseling for the gestational age provided. Continue routine care and follow up unless otherwise noted in visit notes/problem list details OB Flowsheet Initial Weight: 139 lb Date -?-?-?-?-?-?-?-?-?-?-?-?- EGA Weight BP Urine Prot -?-?-?-?-?-?-?-?-?-?-?-?- Glucose FHR FuHt Pres Dilation -?-?-?-?-?-?-?-?-?-?-?-?- Effaced St Visit Note 03/27/21 -?-?-?-?-?-?-?-?-?-?-?-?- 10w 1d 141 lb 2 oz (+2 lb 2 oz) 114/74 -?-?-?-?-?-?-?-?-?-?-?-?- 163 -?-?-?-?-?-?-?-?-?-?-?-?- GP - no cramping or bleeding. Doing well with lovenox injections. 04/09/21 -?-?-?-?-?-?-?-?-?-?-?-?- 12w 0d 141 lb (+2 lb) 100/60 Negative -?-?-?-?-?-?-?-?-?-?-?-?- Negative 168 -?-?-?-?-?-?-?-?-?-?-?-?- MH-No Vb, LOF. Anatomy US scheduled. Will do labs today. Nausea resolved. 04/22/21 -?-?-?-?-?-?-?-?-?-?-?-?- 13w 6d 143 lb (+4 lb) 116/70 122/80 -?-?-?-?-?-?-?-?-?-?-?-?- 153 -?-?-?-?-?-?-?-?-?-?-?-?- MH-Active IUP on US. Denies VB, LOF. Anatomy US scheduled 05/20/21 -?-?-?-?-?-?-?-?-?-?-?-?- 17w 6d 145 lb (+6 lb) 100/72 Negative -?-?-?-?-?-?-?-?-?-?-?-?- Negative 150 -?-?-?-?-?-?-?-?-?-?-?-?- SM- no vb crampi ng some right side discomfrt 06/19/21 -?-?-?-?-?-?-?-?-?-?-?-?- 22w 1d 150 lb 4 oz (+11 lb 4 oz) 100/66 -?-?-?-?-?-?-?-?-?-?-?-?- 150 -?-?-?-?-?-?-?-?-?-?-?-?- GP - no LOF, VB, DFM. Discussed marginal previa. F/u US ordered. 06/21/21 -?-?-?-?-?-?-?-?-?-?-?-?- 22w 3d 151 lb (+12 lb) 114/64 -?-?-?-?-?-?-?-?-?-?-?-?- 160 -?-?-?-?-?-?-?-?-?-?-?-?- GP - work in for back pain and SOB. Pulse ox and pulse nl. Back pain likely musculoskeletal. Discussed safe meds. 07/18/21 -?-?-?-?-?-?-?-?-?-?-?-?- 26w 2d 154 lb (+15 lb) 102/64 Negative -?-?-?-?-?-?-?-?-?-?-?-?- Negative 150 29 -?-?-?-?-?-?-?-?-?-?-?-?- Sm- no vb lof go od fm no reuglar ctx fu us ordered discussed vaccination 07/30/21 -?-?-?-?-?-?-?-?-?-?-?-?- 28w 0d 157 lb 4 oz (+18 lb 4 oz) 100/70 Negative -?-?-?-?-?-?-?-?-?-?-?-?- Negative 151 29 -?-?-?-?-?-?-?-?-?-?-?-?- MH-No VB, LOF. G ood FM. Bllod glucose wnl, Sees Dr Treviño. US today to recheck placenta. Tdap, larc. Taking Fe 08/15/21 -?-?-?-?-?-?-?-?-?-?-?-?- 30w 2d 158 lb (+19 lb) 100/72 Negative -?-?-?-?-?-?-?-?-?-?-?-?- Negative 140 31 -?-?-?-?-?-?-?-?-?-?-?-?- SM- no vb lof go od fm no regular ctx.reviewed insulin and BS now. start increased testing 32 weeks. 08/26/21 -?-?-?-?-?-?-?-?-?-?-?-?- 31w 6d 160 lb (+21 lb) 110/70 Negative -?-?-?-?-?-?-?-?-?-?-?-?- Negative 140 -?-?-?-?-?-?-?-?-?-?-?-?- SM- no vb lof go od fm no regular ctx 08/28/21 -?-?-?-?-?-?-?-?-?-?-?-?- 32w 1d 161 lb (+22 lb) 108/70 Negative -?-?-?-?-?-?-?-?-?-?-?-?- Negative 140 -?-?-?-?-?-?-?-?-?-?-?-?- NST only reac tive 09/03/21 -?-?-?-?-?--?-?-?-?-?-?-?- 33w 0d 160 lb 2 oz (+21 lb 2 oz) 110/70 -?-?-?-?-?-?-?-?-?-?-?-?- 150 -?-?-?-?-?-?-?-?-?-?-?-?- MH-reactive NST. BS WNL >50% time. No VB, LOF. Good FM 09/05/21 -?-?-?-?-?-?-?-?-?-?-?-?- 33w 2d 161 lb 4 oz (+22 lb 4 oz) 96/60 Negative -?-?-?-?-?-?-?-?-?-?-?-?- Negative 130 33 -?-?-?-?-?-?-?-?-?-?-?-?- JV- NST reactive . Leaking fluid. no pooling on exam. rom+ collected. 09/09/21 -?-?-?-?-?-?-?-?-?-?-?-?- 33w 6d 162 lb (+23 lb) 110/70 -?-?-?-?-?-?-?-?-?-?-?-?- 130 0 -?-?-?-?-?-?-?-?-?-?-?-?- -NST with vari able decels, irreg mild CTX. Reviewed per SM: ADAM today 09/13/21 -?-?-?-?-?-?-?-?-?-?-?-?- 34w 3d 164 lb (+25 lb) -?-?-?-?-?-?--?-?-?-?-?-?- 145 -?-?-?-?-?-?-?-?-?-?-?-?- - no vb lof go od fm no regular ctx 09/17/21 -?-?-?-?-?-?-?-?-?-?-?-?- 35w 0d 161 lb (+22 lb) 90/64 Negative -?-?-?-?-?-?-?-?-?-?-?-?- Negative 140 -?-?-?-?-?-?-?-?-?-?-?-?- - no vb lof go od fm no regular ctx 09/19/21 -?-?-?-?-?-?-?-?-?-?-?-?- 35w 2d 162 lb (+23 lb) 99/65 -?-?-?-?-?-?-?-?-?-?-?-?- 170 -?-?-?-?-?-?-?-?-?-?-?-?- -NST only:equi vocol with tachycardia, BPP ordered. 09/24/21 -?-?-?-?-?-?-?-?-?-?-?-?- 36w 0d 165 lb 2 oz (+26 lb 2 oz) 110/78 Negative -?-?-?-?-?-?-?-?-?-?-?-?- Negative 140 -?-?-?-?-?-?-?-?-?-?-?-?- MH-NST only reac tive 09/25/21 -?-?-?-?-?-?-?-?-?-?-?-?- 36w 2d 165 lb (+26 lb) 112/72 112/72 101/71 86/51 109/70 104/68 103/71 107/69 119/70 Negative mg/dl (Nega tive) -?-?-?-?-?-?-?-?-?-?-?-?- -?-?-?-?-?-?-?-?-?-?-?-?- 10/01/21 -?-?-?-?-?-?-?-?-?-?-?-?- 37w 0d 160 lb (+21 lb) 100/69 Negative -?-?-?-?-?-?-?-?-?--?-?-?- Negative 150 -?-?-?-?-?-?-?-?-?-?-?-?- -NST only reac tive 10/04/21 -?-?-?-?-?-?-?-?-?-?-?-?- 37w 3d 160 lb (+21 lb) 97/66 -?-?-?-?-?-?-?-?-?-?-?-?- 140 -?-?-?-?-?-?-?-?-?-?-?-?- SM- no vb lof go od fm irregualr ctx but more stable declined exam today discussed IOL 39 10/07/21 -?-?-?-?-?-?-?-?-?-?-?-?- 37w 6d 160 lb (+21 lb) -?-?-?-?-?-?-?-?-?-?-?-?- 140 -?-?-?-?-?-?-?-?-?-?-?-?- SM- membranes sw ept, reviewed [employer] instructions. no vb lof good fm no regular ctx 10/09/21 -?-?-?-?-?-?-?-?-?-?-?-?- 38w 1d 162 lb 6.4 oz (+23 lb 6.4 oz) 109/70 105/63 111/74 107/77 108/78 104/78 107/80 106/71 88/54 86/52 88/54 90/55 93/54 95/55 89/50 86/54 85/50 84/53 87/55 63/40 90/55 106/67 94/63 89/61 88/65 109/67 101/65 98/68 110/72 97/71 102/67 100/66 96/63 94/62 103/57 87/48 87/48 -?-?-?-?-?-?-?-?-?-?-?-?- -?-?-?-?-?-?-?-?-?-?-?-?- NST FHR Rate Baby A Baseline: 130 Variability:: Moderate Accelerations:: 15 x 15 Decelerations:: None NST Reactive:: Yes FHR Category:: Category I ROS Constitutional Constitutional: Denies change in weight, fatigue, fever(s), headache(s), poor appetite or weakness Eyes Eyes: Denies blurry vision, change in vision, seeing flashes or spots in vision ENT HEENT: Denies dizziness, headache(s), loss taste/smell or sore throat Cardiovascular Cardiovascular: Denies chest pain, dizziness, dyspnea, irregular heart rhythm, leg edema, palpitations, rapid heart rate or vomiting Respiratory/Chest Respiratory/Chest: Denies chest tightness, cough, dyspnea or breast pain Gastrointestinal Gastrointestinal: Denies abdominal pain, anorexia, constipation, cramping, diarrhea, hemorrhoids, vomiting or weight changes Genitourinary Genitourinary: Denies dysuria, flank pain, genital lesions, genital pain, urinary frequency or urinary urgency Musculoskeletal Musculoskeletal: Denies back pain, difficulty walking, joint pain, limited range of motion, muscle cramps or numbness Integumentary Integumentary: Denies lesions or unusual bruising Neurologic Neurologic: Denies abnormal movements, abnormal speech, dizziness, numbness, seizure-like activity or syncope Psychiatric Psychiatric: Denies anxiety, behavioral changes, change in appetite, change in libido, cognitive impairment, confusion, depression, difficulty concentrating, hallucinations or suicidal thoughts Endocrine Endocrinology: Denies excessive sweating, polydipsia or polyuria Hematologic/Lymphatic Hematologic/Lymphatic: Denies easy bleeding, easy bruising or lymphadenopathy Allergic/Immunologic Allergic/Immunologic: Denies itchy eyes, lip swelling, seasonal rhinorrhea, rhinitis, throat swelling, tongue swelling, eczemia, wheezing or asthma Vital Signs Vital Signs Vital Signs: 10/09/21 20:57 10/09/21 20:59 10/09/21 22:21 Temperature 97.7 F L 97.6 F L Temperature Source Temporal Pulse Rate 102 H 102 H Blood Pressure 109/70 BP Systolic 109 BP Diastolic 70 Pulse Ox 96 10/09/21 22:22 10/10/21 00:39 10/10/21 00:44 Temperature Temperature Source Pulse Rate 99 90 94 Blood Pressure 105/63 111/74 107/77 BP Systolic 105 111 107 BP Diastolic 63 74 77 Pulse Ox 96 98 99 10/10/21 00:49 10/10/21 00:54 10/10/21 00:59 Temperature Temperature Source Pulse Rate 95 91 101 H Blood Pressure 108/78 104/78 107/80 BP Systolic 108 104 107 BP Diastolic 78 78 80 Pulse Ox 98 98 98 10/10/21 01:04 10/10/21 01:09 10/10/21 01:14 Temperature Temperature Source Pulse Rate 101 H 103 H 107 H Blood Pressure 106/71 88/54 L 86/52 L BP Systolic 106 88 86 BP Diastolic 71 54 52 Pulse Ox 98 97 97 10/10/21 01:19 10/10/21 01:21 10/10/21 01:24 Temperature Temperature Source Pulse Rate 99 101 H 100 Blood Pressure 88/54 L BP Systolic 88 BP Diastolic 54 Pulse Ox 97 97 10/10/21 01:25 10/10/21 01:26 10/10/21 01:29 Temperature 97.0 F L Temperature Source Pulse Rate 100 102 H Blood Pressure 90/55 L 93/54 L BP Systolic 90 93 BP Diastolic 55 54 Pulse Ox 97 10/10/21 01:34 10/10/21 01:39 10/10/21 01:44 Temperature Temperature Source Pulse Rate 95 95 Blood Pressure 95/55 L 89/50 L BP Systolic 95 89 BP Diastolic 55 50 Pulse Ox 97 97 97 10/10/21 01:45 10/10/21 01:49 10/10/21 01:54 Temperature Temperature Source Pulse Rate 95 98 100 Blood Pressure 86/54 L 85/50 L 84/53 L BP Systolic 86 85 84 BP Diastolic 54 50 53 Pulse Ox 97 97 10/10/21 01:59 10/10/21 02:06 10/10/21 02:09 Temperature Temperature Source Pulse Rate 97 67 80 Blood Pressure 87/55 L 63/40 L 90/55 L BP Systolic 87 63 90 BP Diastolic 55 40 55 Pulse Ox 98 10/10/21 02:10 10/10/21 02:11 10/10/21 02:14 Temperature Temperature Source Pulse Rate 81 91 87 Blood Pressure 106/67 BP Systolic 106 BP Diastolic 67 Pulse Ox 96 10/10/21 02:16 10/10/21 02:19 10/10/21 02:21 Temperature Temperature Source Pulse Rate 100 96 118 H Blood Pressure 94/63 BP Systolic 94 BP Diastolic 63 Pulse Ox 98 99 10/10/21 02:24 10/10/21 02:26 10/10/21 02:29 Temperature Temperature Source Pulse Rate 100 96 110 H Blood Pressure 89/61 L 88/65 L BP Systolic 89 88 BP Diastolic 61 65 Pulse Ox 99 10/10/21 02:31 10/10/21 02:35 10/10/21 02:36 Temperature Temperature Source Pulse Rate 117 H 86 96 Blood Pressure 109/67 BP Systolic 109 BP Diastolic 67 Pulse Ox 98 97 10/10/21 02:39 10/10/21 02:41 10/10/21 02:44 Temperature Temperature Source Pulse Rate 99 91 87 Blood Pressure 101/65 98/68 BP Systolic 101 98 BP Diastolic 65 68 Pulse Ox 97 10/10/21 02:46 10/10/21 02:49 10/10/21 02:51 Temperature Temperature Source Pulse Rate 93 84 92 Blood Pressure 110/72 BP Systolic 110 BP Diastolic 72 Pulse Ox 98 97 10/10/21 02:54 10/10/21 02:56 10/10/21 03:01 Temperature Temperature Source Pulse Rate 105 H 102 H 101 H Blood Pressure 97/71 102/67 BP Systolic 97 102 BP Diastolic 71 67 Pulse Ox 98 99 10/10/21 03:04 10/10/21 03:06 10/10/21 03:11 Temperature Temperature Source Pulse Rate 95 86 81 Blood Pressure 100/66 BP Systolic 100 BP Diastolic 66 Pulse Ox 96 96 10/10/21 03:13 10/10/21 03:16 10/10/21 03:19 Temperature 96.3 F L Temperature Source Pulse Rate 87 94 Blood Pressure BP Systolic BP Diastolic Pulse Ox 94 96 10/10/21 03:21 10/10/21 03:26 10/10/21 03:31 Temperature Temperature Source Pulse Rate 89 90 93 Blood Pressure BP Systolic BP Diastolic Pulse Ox 96 96 97 10/10/21 03:36 10/10/21 03:41 10/10/21 03:46 Temperature Temperature Source Pulse Rate 92 97 88 Blood Pressure BP Systolic BP Diastolic Pulse Ox 95 97 94 10/10/21 03:51 10/10/21 03:56 10/10/21 04:01 Temperature Temperature Source Pulse Rate 91 95 88 Blood Pressure BP Systolic BP Diastolic Pulse Ox 96 96 95 10/10/21 04:06 10/10/21 04:11 10/10/21 04:16 Temperature Temperature Source Pulse Rate 90 99 92 Blood Pressure BP Systolic BP Diastolic Pulse Ox 94 97 96 10/10/21 04:18 10/10/21 04:21 10/10/21 04:26 Temperature 96.4 F L Temperature Source Pulse Rate 96 96 103 H Blood Pressure 96/63 BP Systolic 96 BP Diastolic 63 Pulse Ox 96 96 10/10/21 04:31 10/10/21 04:36 10/10/21 04:41 Temperature Temperature Source Pulse Rate 102 H 100 104 H Blood Pressure BP Systolic BP Diastolic Pulse Ox 97 96 96 10/10/21 04:46 10/10/21 04:51 10/10/21 04:58 Temperature Temperature Source Temporal Pulse Rate 93 93 100 Blood Pressure 94/62 BP Systolic 94 BP Diastolic 62 Pulse Ox 95 97 10/10/21 05:00 10/10/21 05:56 10/10/21 07:32 Temperature 97.2 F L 97.2 F L 97.0 F L Temperature Source Temporal Pulse Rate 99 101 H Blood Pressure 103/57 L 87/48 L BP Systolic 103 87 BP Diastolic 57 48 Pulse Ox 97 10/10/21 07:36 Temperature Temperature Source Temporal Pulse Rate 99 Blood Pressure 87/48 L BP Systolic 87 BP Diastolic 48 Pulse Ox 97 Weight Weight: 162 lb 6.4 oz Body Mass Index (BMI) 30.7 Physical Exam Const alert, oriented x3, no apparent distress and healthy appearing General Appearance: cooperative; Negative for anxious HEENT normocephalic Face and Sinus: normal facial exam Eyes EOMs intact bilaterally and no scleral icterus General Eye: normal appearance of both eyes Neck full ROM and supple Lymph Lymphatic: no lymphadenopathy noted Chest Chest: abnormal inspection of the chest Resp normal respiratory effort Effort and Inspection: able to speak in complete sentences Cardio regular rate GI soft to palpation and non-tender Inspection: gravid Palpation: soft; Negative for tender external exam normal Amniotic Fluid: ROM+plus Back/Spine no CVA tenderness Extremity normal to inspection, full ROM and no clubbing, cyanosis or edema General Extremity: Negative for calf tenderness or edema Skin Lesions: no lesions Rashes: no rashes Psych mental status grossly normal Labs Labs Labs: Blood Type A POSITIVE Antibody Screen NEGATIVE Hct 36.9 % (37-47) L Hgb 12.5 g/dL (12.0-15.0) Obstetrics US Syphilis Total Ab Non-reactive Rubella IgG Antibody Reactive (Nonreactive) Hep Bs Antigen Non-Reactive (Nonreactive) Neisseria gonorrhoeae DNA (ARIAN) Negative (Negative) HIV 1&2 Antibody Non-Reactive (Nonreactive) C.trachomatis DNA (PCR) Negative (Negative) Glucose 1 Hr 50 gm 145 mg/dL (70-140) H Group B Strep DNA Negative (Negative) Rhogam given: No Assessment & Plan (1) : QUALIFIERS: Weeks of gestation: 37 weeks Qualified Code(s): Z3A.37 - 37 weeks gestation of COMMENT: genetic, carrier, and ntd screening declined. nl anatomy; GBS NEG (2) Supervision of high risk , antepartum: COMMENT: PRR DONALD:10/22/21 surprise PC: Kaid Spouse: Enrique Churchill) (3) Antiphospholipid antibody syndrome complicating : COMMENT: Lovenox and baby ASA, baseline ur pr/cr and cmp. plan third trimester testing (4) Anemia affecting : QUALIFIERS: Trimester: second trimester Qualified Code(s): O99.012 - Anemia complicating , second trimester COMMENT: iron started (5) Gestational diabetes: QUALIFIERS: Gestational diabetes mellitus control: diet-controlled Trimester: third trimester Qualified Code(s): O24.410 - Gestational diabetes mellitus in , diet controlled COMMENT: endocrine managing. 2x weekly nsts after 32 week growth, 36 wk growth nl, deliver at 39(not 10/15); NL US 08/27/21 (6) Contraception management: QUALIFIERS: Contraceptive encounter type: IUD management IUD management: unspecified Qualified Code(s): Z30.431 - Encounter for routine checking of intrauterine contraceptive device COMMENT: IUD pp (7) Threatened labor: COMMENT: exp management switched to heparin (8) Prior with demise: COMMENT: at 15 weeks gestation PLAN: Admit to L&D, start pitocin as needed. GBS negative Last dose of Heparin was over 12 hours prior to admit, ok for epidural when ready.
[2021-10-10] MEDS: Amnioinfusion- 0.9% NS 1,000 ML IV.SOLN. 1000 ML INTRA-UTER (08:11)
[2021-10-10 09:06] LABS: Bedside Glucose 77 mg/dL (70-110)
[2021-10-10 10:16] LABS: Bedside Glucose 70 mg/dL (70-110)
[2021-10-10] MEDS: Oxytocin 30 units/NS 500 ml 30 UNITS/500 ML IV.SOLN 334 UNITS IV (10:45)
[2021-10-10 11:21] LABS: Bedside Glucose 76 mg/dL (70-110)
--- NOTE | 2021-10-10 13:12 | OP.PCM_ITS ---
Maternal Data Information DONALD Calculator Estimated Delivery Date Method Current WG Current Estimate 10/22/21 LMP (Certain) 38w 2d Vaginal Delivery Operative Information Date of Procedure: 10/10/21 Pre-Operative Diagnosis: 38 weeks 1 day srom, Post-Operative Diagnosis: 38 weeks 1 day srom, Type of Anesthesia: Epidural Drain: Wallace to straight drain Estimated Blood Loss: 200cc Findings Description of Procedure: Patient began pushing and delivered the head in the GARRY presentation. The head was delivered atraumatically The anterior and posterior shoulders delivered without complication followed by the rest of the and the was placed on the maternal abdomen. Delayed cord clamping was employed for approximately 60 seconds. Cord was clamped and cut and gentle traction was applied to the cord and the placenta delivered spontaneously immediately following it was noted to be intact with three-vessel cord. The perineum and vagina were inspected and noted to have a 1st degree perineal laceration that was repaired using a 2-0 vicryl suture. EBL was 200cc Patient and tolerated delivery well. Presentation: Vertex Amniotic Membrane Rupture Type: Spontaneous Amniotic Fluid Description: Clear Placental Delivery Description: Spontaneous Placenta Disposition: [facility] Cord Vessel Description: 3 Vessels Cord Entanglement: None Infant A Gender: Male (1 minute): 8 (5 minute): 9 Delayed Cord Clamping: Yes Post Vaginal Delivery Medications Given After Delivery: IV Pitocin Episiotomy Description: None Laceration: 2nd degree Complication Complications: None Multi Select Codes Urinary/Genital Urinary/Genital CPT Codes: 17961 Vaginal Delivery [facility]
[2021-10-10 17:10] LABS: Bedside Glucose 143 mg/dL (70-110)
[2021-10-10] MEDS: Enoxaparin 40 MG/0.4 ML Syringe SC (18:30)
[2021-10-10] MEDS: Acetaminophen 500 MG Tablet 1000 MG PO (18:31)
[2021-10-10 21:20] LABS: Bedside Glucose 88 mg/dL (70-110)
[2021-10-10] MEDS: Ibuprofen 600 MG Tablet PO (21:59)
[2021-10-10] MEDS: Polyethylene Glycol 3350 17 GM PACKET PO (22:59)
[2021-10-11 03:58] VITALS: BP 103/72; PULSE 73; RESP 16; TEMP 35.9; O2SAT 97
[2021-10-11] MEDS: Acetaminophen 500 MG Tablet 1000 MG PO (04:37)
[2021-10-11 06:51] LABS: Bedside Glucose 68 mg/dL (70-110)
[2021-10-11 08:25] LABS: Bedside Glucose 95 mg/dL (70-110)
[2021-10-11 08:38] VITALS: BP 105/74; PULSE 78; RESP 16; TEMP 36.5; O2SAT 97
[2021-10-11] MEDS: oxyCODONE 5 MG Tablet PO (09:05)
--- NOTE | 2021-10-11 09:50 | PCM.DC ---
Discharge Instructions Diet Discharge Diet: No restrictions Activity Discharge Activity: Return to Normal Activity, May Not Drive (while taking narcotic pain medications.) and May Shower May resume sexual activity in: 4-6 weeks Dressing / Incision Call your doctor if your incision/area has: Continuous Slow Oozing, Sudden Increased Bleeding, Increased Pain/ Swelling, Increased Redness and Foul Smelling Discharge Follow Up Care Please Follow Up With: Nikkie Najera, When: Call [phone] to make an appointment with your doctor in 6 weeks. If you had elevated blood pressure or 4th degree laceration, you will need to be seen in 2 weeks. Test Results: Test results from this visit will be discussed in further detail at your follow-up appointment, if applicable. Discharge Plan Admission Admit Date/Time: 10/09/21 21:57 Attending Provider: Nikkie Najera Primary Care Provider: Ana Purcell Discharge Orders/Prescriptions Prescriptions: New oxycodone-acetaminophen [Percocet] 5-325 mg tablet 1 tab PO Q6H PRN (Reason: pain) 3 Days Qty: 18 RF: 0 ibuprofen 800 mg tablet 800 mg PO Q8H PRN (Reason: pain) 7 Days Qty: 30 RF: 0 Continued vitamin#30 30 mg iron-10 mg iron-folic acid 1 mg-omg3 capsule 30 mg iron-10 mg iron-1 mg capsule 1 cap PO DAILY RF: 0 ferrous sulfate 325 mg (65 mg iron) tablet 325 mg PO DAILY RF: 0 Discontinued aspirin 81 mg tablet,delayed release (DR/EC) 81 mg PO DAILY RF: 0 Humulin N NPH Insulin KwikPen 100 unit/mL (3 mL) insulin pen 16 unit subcut HS RF: 0 heparin (porcine) 5,000 unit/mL (1 mL) cartridge 5,000 unit subcut Q12H 21 Days Qty: 42 RF: 0 insulin lispro [Humalog KwikPen Insulin] 100 unit/mL insulin pen 15 unit subcut .supper Qty: 3 RF: 3 No Action (DME) pen needle, diabetic [BD Ultra-Fine Estefania Pen Needle] 32 gauge x 5/32 needle See Rx Instructions .ROUTE .MEDSUPPLY Qty: 50 RF: 3 Referrals / Follow Up: Ana Purcell MD [Primary Care Provider] - Disposition Disposition (needs filled in before D/C Order can be placed): Home, Self Care
--- NOTE | 2021-10-11 09:55 | PCM.PN.OB ---
Subjective Subjective Patient doing well without complaints. Tolerating PO. Ambulating and voiding without difficulty. Feeding well. Denies chest pain, shortness of breath, calf pain/swelling, fevers, chills, lightheadedness. Objective Data Objective Data Vital Signs: Vital Signs Temp Pulse Resp BP Pulse Ox 97.7 F L 78 16 105/74 97 10/11/21 08:38 10/11/21 08:38 10/11/21 08:38 10/11/21 08:38 10/11/21 08:38 Oxygen Delivery Method Room Air Weight: 162 lb 6.4 oz Body Mass Index (BMI) 30.7 Intake & Output: Intake and Output for Last 24 Hours 10/09/21 10/10/21 10/11/21 23:59 23:59 23:59 Intake Total 530.83 / 530.83 3914.77 / 3914.77 Output Total 3600 / 3600 Balance 530.83 / 530.83 314.77 / 314.77 Lab / Micro Data Result Diagrams: 10/09/21 22:15 Labs: Laboratory Results - last 24 hr 10/10/21 10:08: POC Glucose 70 10/10/21 11:15: POC Glucose 76 10/10/21 17:05: POC Glucose 143 H 10/10/21 21:10: POC Glucose 88 10/11/21 06:45: POC Glucose 68 L 10/11/21 07:13: POC Glucose 95 Micro: Microbiology 10/09/21 21:10 Nasal Secretion SARS-CoV-2 Antigen (Rapid) - Final ROS Constitutional Constitutional: Denies chills, fatigue, fever(s), poor appetite or weakness Eyes Eyes: Denies blurry vision, change in vision, seeing flashes or spots in vision ENT HEENT: Denies dizziness, headache(s), loss taste/smell or sore throat Cardiovascular Cardiovascular: Denies chest pain, dizziness, dyspnea, irregular heart rhythm, palpitations or rapid heart rate Respiratory/Chest Respiratory/Chest: Denies chest tightness, cough, dyspnea or breast pain Gastrointestinal Gastrointestinal: Denies abdominal pain, constipation or vomiting Genitourinary Genitourinary: Denies dysuria or flank pain Musculoskeletal Musculoskeletal: Denies difficulty walking, joint pain, limited range of motion or numbness Neurologic Neurologic: Denies abnormal movements, abnormal speech, dizziness, numbness, seizure-like activity or syncope Psychiatric Psychiatric: Denies anxiety, behavioral changes, change in appetite, confusion, depression or suicidal thoughts Physical Exam Const alert, oriented x3 and no apparent distress General Appearance: cooperative and comfortable Resp normal respiratory effort Cardio regular rate GI normal to inspection, nondistended, normoactive bowel sounds GI Narrative: uterus is firm below umbilicus Palpation: soft Bimanual Exam - Adnexa, Other: Negative for cul-de-sac fullness Back/Spine no CVA tenderness and thoraco-lumbar ROM normal Extremity normal to inspection, no clubbing, cyanosis or edema, no calf tenderness and no pedal edema Psych mental status grossly normal, thought process normal, cooperative, affect normal, speech normal, activity/motor behavior normal, denies homicidal ideation and denies suicidal ideation Assessment & Plan (1) Supervision of high risk , antepartum: COMMENT: PRR DONALD:10/22/21 surprise PC: Kian Spouse: Enrique Churchill) (2) Antiphospholipid antibody syndrome complicating : COMMENT: Lovenox and baby ASA, baseline ur pr/cr and cmp. plan third trimester testing (3) Anemia affecting : QUALIFIERS: Trimester: second trimester Qualified Code(s): O99.012 - Anemia complicating , second trimester COMMENT: iron started (4) Gestational diabetes: QUALIFIERS: Gestational diabetes mellitus control: diet-controlled Trimester: third trimester Qualified Code(s): O24.410 - Gestational diabetes mellitus in , diet controlled COMMENT: endocrine managing. 2x weekly nsts after 32 week growth, 36 wk growth nl, deliver at 39(not 10/15); NL US 08/27/21 (5) Prior with demise: COMMENT: at 15 weeks gestation PLAN: s/p PPD # 1 1. routine post delivery care 2. breast feeding- support given 3. rh positive 4. rubella immune 5. continue lovenox x 6 weeks 6. dc to home later today
[2021-10-11 15:59] VITALS: BP 112/74; PULSE 91; RESP 16; TEMP 36.3
--- NOTE | 2021-10-11 16:30 | CASEMGMT ---
Social Work Labor and Delivery This content writer familiar with mother of baby (MOB) from prior admission. During prior admission MOB discussed interest in having information on advanced directives. Noted in MOB's record a history of depression. Met with MOB briefly this date and provided copies of advanced directives. MOB voiced interest in looking the information over. Provided MOB with packet of information and resources on depression and anxiety. MOB reports belief that had some mood issues in the past but that got over it myself. MOB voice that would be helpful to have more information this time. Let MOB know that if MOB has questions or concerns can always reach back out ot this content writer. MOB expressed understanding. MOB and baby discharging home with family. Family support in the area. No voiced concerns by staff or MOB for home going. -MINE Shah, FLASK HANDLER
== END 2021-10-11 16:10 | disposition home or self-care (01) | DRG 806 ==
LOC: WPOUT 22:07 → WP 22:07
PROVIDERS: Obstetrics & Gynecology; Admitting Provider Obstetrics & Gynecology; PCP Family Medicine; Visit Provider Obstetrics & Gynecology
DX: O24.424 Gestational diabetes mellitus in childbirth, insulin controlled (principal); O70.0 First degree perineal laceration during delivery; O99.12 Other diseases of the blood and blood-forming organs and certain disorders involving the immune mechanism complicating childbirth; Z37.0 Single live birth; D68.61 Antiphospholipid syndrome; Z3A.38 38 weeks gestation of pregnancy; Z79.4 Long term (current) use of insulin; O99.02 Anemia complicating childbirth; D64.9 Anemia, unspecified
CPT/HCPCS: 59025; 59050; 82962; 84112; 85025; 86850; 86900; 86901; 87426; 99218; J7030; J7120; 90686; G0378

== ENCOUNTER 2021-11-27 14:10 | Outpatient (CLI) | payer OTHER, SELFPAY ==
[2021-11-27 15:13] LABS: NATERA MAILED SPECIMEN
== END 2021-11-27 23:59 | disposition short-term general hospital (02) ==
LOC: PAVLAB 14:11
PROVIDERS: PCP Family Medicine; Referring Provider Obstetrics & Gynecology; Visit Provider Obstetrics & Gynecology
DX: Z13.89 Encounter for screening for other disorder (principal); Z80.3 Family history of malignant neoplasm of breast
CPT/HCPCS: 36415

== ENCOUNTER → 2023-03-03 | Outpatient (CLI) | payer OTHER, SELFPAY ==
[2023-03-03 10:08] LABS: Vitamin D,25 Hydroxy 36.6 ng/mL
[2023-03-03 10:09] LABS: Hemoglobin A1c 5.2 % (3.8-5.6)
[2023-03-03 10:31] LABS: Anion Gap 4 (5-15); BUN 11 mg/dL (7-18); BUN/Creat Ratio 16.5 RATIO (10-20); Calcium,Total 8.8 mg/dL (8.5-10.1); Chloride 104 mmol/L (98-107); Cholesterol 153 mg/dL (200); Creatinine, Serum 0.67 mg/dL (0.55-1.02); EST Glomerular Filtration Rate 109 mL/min (>60); Est Glom Filt Rate - Afr Amer 132 mL/min (>60); Glucose 89 mg/dL (74-106); High Density Lipoprotein 46 mg/dL; Potassium 3.7 mmol/L (3.5-5.1); Sodium Level 136 mmol/L (136-145); Thyroid Stim Hormone (TSH) 0.74 uIU/mL (0.358-3.74); Triglycerides 47 mg/dL; Very Low Density Lipoprotein 9 mg/dL (5-40)
== END | disposition home or self-care (01) ==
LOC: LAB 09:24
PROVIDERS: PCP Family Medicine; Referring Provider Obstetrics & Gynecology; Visit Provider Obstetrics & Gynecology
DX: Z86.32 Personal history of gestational diabetes (principal)
CPT/HCPCS: 36415; 80048; 80061; 82306; 83036; 84443

== ENCOUNTER → 2023-05-29 | Outpatient (CLI) | payer OTHER, SELFPAY ==
[2023-05-29 08:18] LABS: Absolute Lymphocyte Count 1.87 X10^3/uL (0.83-4.51); Absolute Neutrophil Count 3.1 X10^3/uL (2.0-7.7); Basophil# 0.03 X10^3/uL; Basophil% 0.5 % (0-1); Eosinophil# 0.15 X10^3/uL; Eosinophils% 2.7 % (0-5); Hematocrit 42.8 % (37-47); Hemoglobin 13.8 g/dL (12.0-15.0); Lymphocyte # 1.87 X10^3/ul (0.83-4.51); Lymphocyte % 33.9 % (19-41); Mean Corp Hgb Conc 32.2 g/dL (32-36); Mean Corpuscular Hgb 28.6 pg (27.0-32.0); Mean Corpuscular Volume 88.6 fL (81-99); Mean Platelet Vol. 9.1 fl (6.2-12.0); Monocyte% 7.2 % (0-10); NRBC Flagged by Analyzer 0 % (0-5); Neutrophil # 3.06 X10^3/uL (2.7-7.7); Neutrophil % 55.5 % (47-70); Platelet Count 283 K/mm3 (150-450); RBC Distribution Width CV 13.2 % (11.6-14.6); RBC Distribution Width SD 43.1 fl (35.1-43.9); Red Blood Count 4.83 M/mm3 (4.2-5.4); White Blood Count 5.5 K/mm3 (4.4-11.0)
[2023-05-29 08:26] LABS: Prothrombin Time (Protime)PT. 13.1 SECONDS (11.7-14.9)
[2023-05-29 08:27] LABS: Partial Thromboplast Time 35.3 Seconds (24.1-36.2)
== END | disposition home or self-care (01) ==
LOC: PAVLAB 08:02
PROVIDERS: PCP Family Medicine; Referring Provider Obstetrics & Gynecology; Visit Provider Obstetrics & Gynecology
DX: R23.3 Spontaneous ecchymoses (principal)
CPT/HCPCS: 36415; 85025; 85610; 85730

== ENCOUNTER → 2024-02-22 | Outpatient (CLI) | payer OTHER, SELFPAY ==
[2024-02-24 19:46] LABS: HPV Reflexed? NOT INDICATED
== END | disposition home or self-care (01) ==
PROVIDERS: PCP Family Medicine; Referring Provider Obstetrics & Gynecology; Visit Provider Obstetrics & Gynecology
DX: Z12.4 Encounter for screening for malignant neoplasm of cervix (principal)
CPT/HCPCS: 88175; G0145

== ENCOUNTER 2024-06-12 12:12 | Emergency (ER) | payer OTHER, SELFPAY ==
[2024-06-12 12:13] VITALS: BP 113/88; PULSE 104; RESP 15; TEMP 36.3; O2SAT 98; BMI 26.4
--- NOTE | 2024-06-12 12:33 | EDS_ITS ---
HPI History of Present Illness Chief Complaint: General Illness [facility] Medical History Genetic testing Blood clotting disorder depression Marginal placenta previa Anti-cardiolipin antibody positive Prior with demise Gave to child recently Hemorrhoids Home Medications ?Medication ?Instructions ?Recorded ?Last Taken ?Type NK 06/12/24 Unknown History Allergy/AdvReac Type Severity Reaction Status Date / Time amoxicillin Allergy Mild Anaphylaxis Verified 06/12/24 12:13 ibuprofen (From Motrin) Allergy Mild Hives Verified 06/12/24 12:13 Family History Unknown Breast cancer Surgical History History of appendectomy Social History household members: family housing: house number of children: 2 current occupational status: employed 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 Smoking Status: Never smoker second hand exposure: No alcohol intake: never details: social substance use type: does not use caffeine: Yes what type of physical activity do you participate in: none seatbelt use: always do you feel safe at home: Yes additional social history: [facility] Performance EXAM Physical Exam Const Vital Signs: 06/12/24 12:13 06/12/24 12:21 Temperature 97.4 F L Temperature Source Temporal Pulse Rate 104 H Respiratory Rate 15 Respiratory Effort Normal Non-Labored Respiratory Pattern Normal Blood Pressure 113/88 H Blood Pressure Mean 96 Pulse Ox 98 Oxygen Delivery Method Room Air MDM MDM MDM Narrative Medical decision making narrative: HISTORY OF PRESENT ILLNESS: 34-year-old female presents with rib pain. Notes left rib pain, fever. No she has not been feeling well recently. Notes history of clotting disorder but no blood thinners. Denies any cough. Denies any headache. Denies any urinary complaints. Denies abdominal pain. Denies any shortness of breath. The patient denies recent surgery in the last 4 weeks or immobilization in the last 3 days, denies previous diagnosis of DVT or PE, hemoptysis, unilateral leg swelling or malignancy with treatment the last 6 months or palliative. No estrogen use noted. Although patient does endorse history of clotting disorder. REVIEW OF SYSTEMS: Pertinent positives: Left rib pain, fever Pertinent negatives: Sore throat, cough, abdominal pain, urinary PHYSICAL EXAM: Nursing triage notes reviewed, Vital signs reviewed Constitutional: please see [facility] HENT: MMM Eyes: Pupils equal round and reactive to light, Extraocular muscles intact Neck: No stridor, no JVD, full neck ROM Lungs: Clear to auscultation, No wheezing or rales. No increased work of breathing, no conversational dyspnea, no accessory muscle use, no nasal flaring. No respiratory distress noted. TTP over left rib. No flail chest. Heart: Regular rate and rhythm, No murmurs, No rubs and No gallops, 2+ distal pulses (radial, femoral, posterior tibial) in all extremities Abdomen: Soft, there is no tenderness, rigidity, rebound or guarding, no obvious peritoneal signs, no palpable pulsatile abdominal masses, no auscultated abdominal bruit : No CVAT Extremities: No edema Neuro: No focal neurological deficits, cranial nerves II through XII intact, 5/5 strength in all extremities. Intact sensation to light touch in all extremities, 2+ reflexes bilateral patella tendons. Normal gait. No ataxia. Skin: No rash or lesions noted MEDICAL DECISION MAKING: Chief Complaint: Fever, left rib pain External records reviewed: [Outpatient records reviewed: Seen yesterday for fever left-sided rib pain. COVID and flu testing were negative at that time. Factors affecting care: Clotting disorder Social determinants of health: denies smoking or illicit drug use History obtained from others: none Consults: none [facility] Narrative: Patient was initially tachycardic otherwise afebrile and nontoxic-appearing. Exam with TTP over left rib but no flail chest or crepitus. Lungs were clear. No stigmata of VTE. I considered the following differential diagnosis: Pneumonia, PE, rib fracture dislocation, viral illness I obtained a broad lab and imaging workup to further elucidate the etiology the patient complaint. ALL IMAGES (IF OBTAINED) HAVE BEEN PERSONALLY REVIEWED AND INTERPRETED BY MYSELF. D-dimer negative making VTE less likely EKG with normal sinus rhythm, normal axis, normal intervals, no obvious STEMI, noted T wave inversion in 3 and aVF, reviewed prior EKG from 2015 which showed T wave version in lead III however no inversion in aVF overall similar morphology High-sensitivity troponin is negative, no evidence of myocardial ischemiax2 BNP within normal limit suggestive of no increased volume overload or heart failure CBC without leukocytosis, severe anemia, no thrombocytopenia. Urine is negative COVID flu RSV is negative The synthesis of the patient's history, physical exam, labs images suggest no acute life-limiting etiology specifically no signs of rib fracture, pulmonary contusion, PE, arrhythmia, pneumonia, COVID or flu. She is likely several other viral illness. This should resolve in 7 to 14 days. Strict return precautions discussed. Hide ibuprofen to prescription were discussed as well The patient and/or family, caregivers express understanding. The patient and/or family, caregivers agrees with the plan. Shared decision making: I will have a discussion with the patient and or visitors regarding risk/benefits of further testing or admission. They will be made aware of of the risk/benefits inherent in this decision they will be given the opportunity to voice understanding. Total critical care time today provided was at least 0 minutes. This excludes separately billable procedures. Critical care time (if documented) is secondary to the patient having high probability of clinically significant/life threatening deterioration in the patient's condition which required my urgent intervention. Impression: 1. Fever 2. Left rib pain Dispo: Discharge home This note was generated with [employer] dictation software. It may contain incorrect words, spelling, and punctuation that were not noted in review of the chart prior to signing. Lab Data Labs: Laboratory Results - last 24 hr 06/12/24 06/12/24 06/12/24 12:45 12:52 14:55 WBC 8.4 RBC 4.65 Hgb 13.4 Hct 41.0 MCV 88.2 MCH 28.8 MCHC 32.7 RDW Std Deviation 42.8 RDW Coeff of Balb[place] 13.2 Plt Count 239 MPV 9.5 Immature Gran % (Auto) 0.400 Neut % (Auto) 61.4 Lymph % (Auto) 24.7 [place] % (Auto) 12.4 H Eos % (Auto) 0.7 Baso % (Auto) 0.4 Absolute Neuts (auto) 5.2 Absolute Lymphs (auto) 2.08 Nucleated RBC % 0 D-Dimer Quant (PE/DVT) 0.31 Sodium 139 Potassium 3.6 Chloride 105 Carbon Dioxide 29.0 Anion Gap 5 BUN 10 Creatinine 0.62 Estim Creat Clear Calc 111.18 Est GFR (MDRD) Af Amer 145 Est GFR (MDRD) Non-Af 119 BUN/Creatinine Ratio 16.3 Glucose 82 Calcium 9.1 Troponin I High Sens < 3 L < 3 L B-Natriuretic Peptide 13.4 Urine Test Negative Radiography Diagnostic Testing: Clinical Impression(s) from Imaging Studies Chest X-Ray 06/12/24 12:35 IMPRESSION: Normal x-ray examination of the chest. Electronically Signed: Rich Marcos MD at 13:41 EDT , Discharge Plan Triage Chief Complaint: General Illness ED Provider: Gianluca Frankel Dx/Rx/DC Orders Prescriptions: No Action NK Primary Care Provider: Ana Purcell Referrals: Ana Purcell MD [Primary Care Provider] - Print Language: Nepali
--- NOTE | 2024-06-12 12:35 | RAD_ITS ---
STUDY: X-RAY CHEST REASON FOR EXAM: Female, 34 years old. Left rib pain TECHNIQUE: PA and lateral views of the chest. COMPARISON: None. FINDINGS: The lungs are clear and expanded. There is no demonstrated pleural abnormality. Normal size heart. Normal mediastinum and [place]. Normal visualized pulmonary arteries. Normal visualized aortic arch and descending thoracic aorta. Normal visualized thoracic spine. Normal visualized ribs, clavicles, and shoulders. There is no demonstrated abnormality of the visualized soft tissue structures of the upper abdomen. RAD/Chest PA and Lateral IMPRESSION: Normal x-ray examination of the chest. Electronically Signed: Rich Marcos MD at 13:41 EDT ,
--- NOTE | 2024-06-12 12:35 | EKG12_ITS ---
Test Reason : RIB PAIN Blood Pressure : / mmHG Vent. Rate : 091 BPM Atrial Rate : 091 BPM P-R Int : 150 ms QRS Dur : 074 ms QT Int : 338 ms P-R-T Axes : 038 077 -12 degrees QTc Int : 415 ms Normal sinus rhythm Nonspecific T wave abnormality Abnormal ECG Confirmed by Stanley London ([id number]), managing editor CIARA SHOEMAKER ([id number]) on 06/14/2024 2:06:24 PM Referred By: Confirmed By:Stanley London
[2024-06-12] MEDS: 0.9% Normal Saline (500mL Bag) 500 ML 1000 ML IV (12:49)
[2024-06-12 13:16] LABS: D-Dimer Quantitative (DVT/PE) 0.31 FEU/ug/m (0.27-0.49)
[2024-06-12 13:20] LABS: Internal QC Validated? YES +Cl - CLEAR BKGD; Pregnancy, Urine Negative Negative
[2024-06-12 13:23] LABS: Absolute Lymphocyte Count 2.08 X10^3/uL (0.83-4.51); Absolute Neutrophil Count 5.2 X10^3/uL (2.0-7.7); Basophil# 0.03 X10^3/uL; Basophil% 0.4 % (0-1); Eosinophil# 0.06 X10^3/uL; Eosinophils% 0.7 % (0-5); Hemoglobin 13.4 g/dL (12.0-15.0); Lymphocyte # 2.08 X10^3/ul (0.83-4.51); Lymphocyte % 24.7 % (19-41); Mean Corp Hgb Conc 32.7 g/dL (32-36); Mean Corpuscular Hgb 28.8 pg (27.0-32.0); Mean Corpuscular Volume 88.2 fL (81-99); Mean Platelet Vol. 9.5 fl (6.2-12.0); Monocyte# 1.04 X10^3/uL; Monocyte% 12.4 % (0-10); NRBC Flagged by Analyzer 0 % (0-5); Neutrophil # 5.17 X10^3/uL (2.7-7.7); Neutrophil % 61.4 % (47-70); Platelet Count 239 K/mm3 (150-450); RBC Distribution Width CV 13.2 % (11.6-14.6); RBC Distribution Width SD 42.8 fl (35.1-43.9); Red Blood Count 4.65 M/mm3 (4.2-5.4); White Blood Count 8.4 K/mm3 (4.4-11.0)
[2024-06-12 13:24] LABS: BNP,B-Type NATRIURETIC PEPTIDE 13.4 pg/mL (0-100)
[2024-06-12 13:27] LABS: Anion Gap 5 (5-15); BUN 10 mg/dL (7-18); BUN/Creat Ratio 16.3 RATIO (10-20); Calcium,Total 9.1 mg/dL (8.5-10.1); Chloride 105 mmol/L (98-107); Creatinine, Serum 0.62 mg/dL (0.55-1.02); EST Glomerular Filtration Rate 119 mL/min (>60); Est Glom Filt Rate - Afr Amer 145 mL/min (>60); Estimated Creatinine Clearance 111.18 ml/min; Glucose 82 mg/dL (74-106); Potassium 3.6 mmol/L (3.5-5.1); Sodium Level 139 mmol/L (136-145); Troponin-I HS (w/2H Reflex) < 3 pg/mL (3.0-54.0)
[2024-06-12] MEDS: Lidocaine 5% Patch 1 PATCH TOPICAL (14:03)
[2024-06-12] MEDS: Ketorolac 15 MG/ML Vial IV (14:37)
[2024-06-12 14:56] LABS: Reflex Troponin-HS? (from REC) Y
[2024-06-12 15:27] LABS: Troponin-I HS < 3 pg/mL (3.0-54.0)
[2024-06-12 16:13] VITALS: BP 118/89; PULSE 82; RESP 22; TEMP 36.7; O2SAT 100
== END 2024-06-12 17:27 | disposition home or self-care (01) ==
PROVIDERS: Emergency Provider Emergency Medicine; PCP Family Medicine; Visit Provider Emergency Medicine
DX: R50.9 Fever, unspecified (principal); R07.81 Pleurodynia; D68.9 Coagulation defect, unspecified; Z11.52 Encounter for screening for COVID-19
CPT/HCPCS: 71046; 80048; 81025; 83880; 84484; 85025; 85379; 87631; 93005; 96361; 96374; 99285; J7030; J7040; A4216

== ENCOUNTER → 2024-06-29 | Outpatient (CLI) | payer OTHER, SELFPAY ==
[2024-06-29 12:41] LABS: Absolute Lymphocyte Count 1.89 X10^3/uL (0.83-4.51); Absolute Neutrophil Count 2.5 X10^3/uL (2.0-7.7); Basophil# 0.04 X10^3/uL; Basophil% 0.8 % (0-1); Eosinophil# 0.14 X10^3/uL; Eosinophils% 2.7 % (0-5); Hematocrit 39.7 % (37-47); Hemoglobin 12.9 g/dL (12.0-15.0); Lymphocyte # 1.89 X10^3/ul (0.83-4.51); Lymphocyte % 36.9 % (19-41); Mean Corp Hgb Conc 32.5 g/dL (32-36); Mean Corpuscular Hgb 28.4 pg (27.0-32.0); Mean Corpuscular Volume 87.3 fL (81-99); Mean Platelet Vol. 9.4 fl (6.2-12.0); Monocyte% 9.8 % (0-10); NRBC Flagged by Analyzer 0 % (0-5); Neutrophil # 2.54 X10^3/uL (2.7-7.7); Neutrophil % 49.6 % (47-70); Platelet Count 293 K/mm3 (150-450); RBC Distribution Width CV 13.2 % (11.6-14.6); RBC Distribution Width SD 42.1 fl (35.1-43.9); Red Blood Count 4.55 M/mm3 (4.2-5.4); White Blood Count 5.1 K/mm3 (4.4-11.0)
[2024-06-29 12:56] LABS: Vitamin B12 388 pg/mL (211-911); Vitamin D,25 Hydroxy 36.6 ng/mL
[2024-06-29 13:05] LABS: ALB/GLOB Ratio 1.1 RATIO (0.9-2.4); AST(SGOT) 12 U/L (15-37); Alanine Aminotransfer ALT/SGPT 18 U/L (13-56); Alkaline Phosphatase 86 U/L (45-117); Anion Gap 7 (5-15); BUN 10 mg/dL (7-18); BUN/Creat Ratio 16.6 RATIO (10-20); Calcium,Total 9.1 mg/dL (8.5-10.1); Chloride 105 mmol/L (98-107); Cholesterol 187 mg/dL (200); EST Glomerular Filtration Rate 123 mL/min (>60); Est Glom Filt Rate - Afr Amer 148 mL/min (>60); Ferritin 64 ng/mL (8-252); Globulin 3.8 g/dL (2.2-4.2); Glucose 89 mg/dL (74-106); High Density Lipoprotein 63 mg/dL; Magnesium 2.3 mg/dL (1.6-2.6); Potassium 4.2 mmol/L (3.5-5.1); Protein, Total 7.8 g/dL (6.4-8.2); Sodium Level 136 mmol/L (136-145); Thyroid Stim Hormone (TSH) 0.816 uIU/mL (0.358-3.740); Triglycerides 74 mg/dL; Very Low Density Lipoprotein 15 mg/dL (5-40)
== END | disposition home or self-care (01) ==
LOC: VSLAB 10:44
PROVIDERS: PCP Family Medicine; Visit Provider Family Medicine
DX: R53.83 Other fatigue (principal); Z13.6 Encounter for screening for cardiovascular disorders
CPT/HCPCS: 36415; 80053; 80061; 82306; 82607; 82728; 83735; 84443; 85025

== ENCOUNTER 2025-03-04 12:21 | Emergency (ER) | payer BC, SELFPAY ==
[2025-03-04 12:23] VITALS: BP 110/82; PULSE 96; RESP 18; TEMP 36.2; O2SAT 100; BMI 25.8
--- NOTE | 2025-03-04 12:42 | EDS_ITS ---
<Statement entered by Enrique Chicas DO - 03/04/25 15:02> Patient was seen and examined with nurse john Lancaster All components of the history and physical confirmed and agreed. History of present illness and physical exam: Patient is a 75-year-old female with no known significant past medical history who presents to the emergency department with a chief complaint of dizziness and feeling unsteady that has been going for the last 2 days. Patient states that originally she thought that her sugar was low but after dinner she noted that her symptoms started to get worse. States that when she turns her head to the right she feels like her symptoms get worse. Patient states that this is never happened before. Review of systems: Agree with above Physical exam: Agree with above but will add on patient did complete finger-nose test bilaterally, difficulty her symptoms were exacerbated when she turns her head to the right however was fatigable in nature. [facility] Patient is a 35-year-old female who presents to the [facility] part with a chief complaint of dizziness for the last 2 days. On the differential diagnose includes but not limited to peripheral vertigo, posterior circulation stroke, have low suspicion for this she has no family history or other risk factors for this, otitis media, electrolyte abnormalities. Once workup is obtained reviewed she will be reevaluated. Patient was given meclizine here in the emergency department Patient CBC was largely unremarkable no evidence leukocytosis white blood count normal at 7.9, hemoglobin stable 13.4, platelet count normal at 270. Patient sodium normal 136, potassium normal 4.6, creatinine normal at 0.64. Patient states that she does still feel off balance she was given Valium. On reevaluation the patient and she was feeling much improved would like to go home at this point in time. Patient was given a prescription for meclizine she is encouraged to follow-up with ears nose and throat team and return with worsening symptoms or concerns. She is agreeable to plan all question concerns answered she was discharged home in stable condition. Final impression: Benign paroxysmal positional vertigo Disposition: Patient will be discharged home in stable condition Supervising attending attestation: Enrique CRUZ History of Present Illness Chief Complaint: Dizziness Narrative Narrative: Patient is a 35-year-old female with no significant ankle history, presenting to the emergency department for 2 days of feeling dizzy, feeling unsteady. Patient states that she thought that maybe her sugar was low yesterday, after dinner, when she got from a table she when she turned to the right and felt she was going to fall down. She describes it as a spinning sensation, the only time she feels better is when she is laying flat in her bed looking at the ceiling. Patient states she does have some nausea. She is never had a history of this before. No fever or chills. [facility] Medical History Genetic testing Blood clotting disorder depression Marginal placenta previa Anti-cardiolipin antibody positive Prior with demise Gave to child recently Hemorrhoids Home Medications ?Medication ?Instructions ?Recorded ?Last Taken ?Type meclizine 25 mg chewable tablet 25 mg PO TID Dizzy #20 tabs 03/04/25 Unknown Rx (Antivert) Allergy/AdvReac Type Severity Reaction Status Date / Time amoxicillin Allergy Mild Anaphylaxis Verified 03/04/25 12:23 ibuprofen (From Motrin) Allergy Mild Hives Verified 03/04/25 12:23 Family History Unknown Breast cancer Surgical History History of appendectomy Social History household members: family housing: house number of children: 2 current occupational status: employed 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 Smoking Status: Never smoker second hand exposure: No alcohol intake: never details: social substance use type: does not use caffeine: Yes what type of physical activity do you participate in: none seatbelt use: always do you feel safe at home: Yes additional social history: [facility] Performance ROS ROS ED ROS Narrative Constitutional: Negative for fever, chills, weight loss, weakness Eyes: Negative for vision loss, vision change, double vision ENT: Negative for any sore throat, ear pain, congestion Cardiovascular: Negative for any chest pain, tightness, palpitations Respiratory: Negative for any cough, sputum production, hemoptysis, dyspnea, dyspnea on exertion, orthopnea Gastrointestinal: Negative for any abdominal pain, nausea, vomiting, diarrhea, constipation, blood in stool, blood in vomit : Negative for any urinary frequency, dysuria, retention, blood in urine Muscle skeletal: Negative for any neck pain, back pain Neurological: Negative for any headache, syncope. Positive for feeling of dizzy sensation of room spinning, feeling unsteady while walking Skin: Negative for any rashes, itching, abrasions, lacerations Psychiatric: Negative for any depression, anxiety, stress, suicidal ideation, homicidal ideation Hematologic: Negative for any excessive bruising, easy bleeding EXAM Physical Exam Narrative Exam Narrative: Vital signs reviewed. HEET: Head normocephalic atraumatic, TMs clear bilaterally. Posterior pharynx is clear, moist mucous membranes. Nares clear bilaterally. Neck: Supple with no lymphadenopathy or tenderness. No signs of meningismus. Cardiac: Regular rate and rhythm no murmurs gallops or rubs, equal peripheral pulses bilaterally. Respiratory: Lungs clear to auscultation bilaterally. No chest tenderness. Abdomen: Soft, nontender, nondistended. No abdominal bruit or pulsatile masses. No hepatosplenomegaly Extremities: No peripheral edema, no signs of gross trauma or deformity. Active full range of motion of all extremities. Neuro: Cranial nerves II through XII intact, no focal neurological deficits. NIH stroke scale 0. I did perform a Ashley-Hallpike maneuver, patient had most of the symptoms when raising up or turning to the right. I did witness some nystagmus more to the right, this lasted 2 to 3 seconds. When the patient was still, looking straight ahead she did not have any symptoms. Skin: Clean dry and intact with no rash, purpura, petechiae, vesicles or pustules. Backs/flank: No CVA tenderness, no midline spinal tenderness, no deformity. Psych: Normal mood and affect. No SI, HI or acute psychosis. Const Vital Signs: 03/04/25 12:23 03/04/25 14:07 Temperature 97.1 F L Temperature Source Temporal Pulse Rate 96 75 Respiratory Rate 18 16 Blood Pressure 110/82 H 102/72 Blood Pressure Mean 91 82 Pulse Ox 100 100 Oxygen Delivery Method Room Air Room Air Positive well nourished and well developed General Appearance ED: well developed MDM MDM Lab Data Labs: Laboratory Results - last 24 hr 03/04/25 12:58 WBC 7.9 RBC 4.59 Hgb 13.4 Hct 39.5 MCV 86.1 MCH 29.2 MCHC 33.9 RDW Std Deviation 43.5 RDW Coeff of Balbina 13.8 Plt Count 270 MPV 9.1 Immature Gran % (Auto) 0.300 Neut % (Auto) 66.8 Lymph % (Auto) 23.5 [place] % (Auto) 7.9 Eos % (Auto) 1.1 Baso % (Auto) 0.4 Absolute Neuts (auto) 5.3 Absolute Lymphs (auto) 1.85 Nucleated RBC % 0 Sodium 136 Potassium 4.6 Chloride 103 Carbon Dioxide 21.8 Anion Gap 12 BUN 12 Creatinine 0.64 L Estim Creat Clear Calc 109.97 Est GFR (MDRD) Non-Af 119 BUN/Creatinine Ratio 19.3 Glucose 92 Calcium 9.5 Treatment and Re-Evaluation :: Differential diagnosis includes however is not limited to: Peripheral vertigo, central vertigo, otitis media, electro abnormality, dehydration Patient appears generally well, vital signs are stable, patient is nontoxic- appearing. Presenting to the emergency department for complaints of dizziness. On my evaluation, I am concerned about a benign positional vertigo. Patient did have worsening symptoms when sitting up, looking to the right. Patient was seen basic laboratory values, IV fluids Zofran. Patient will be started on meclizine. Patient will be reevaluated. Patient laboratory values are stable. Patient did walk to the bathroom with what appeared to be a steady gait however the patient states he still needs to grab the wall because she is significantly dizzy. She still complaining of some room spinning like sensation. Patient will be given oral Valium. After taking the Valium, patient states he feels much better. Patient states that he feels less dizzy, she feels more comfortable walking. At this time, patient be discharged with meclizine. She will follow-up with the ENT. She instructed return for any worsening symptoms. All questions answered, stable for discharge. Discharge Plan Triage Chief Complaint: Dizziness ED Midlevel Provider: Tonny Garcia ED Provider: Enrique Chicas Dx/Rx/DC Orders Clinical Impression: Benign paroxysmal positional vertigo Instructions: ED BPV Vertigo Prescriptions: New meclizine [Antivert] 25 mg tablet,chewable 25 mg PO TID Qty: 20 0RF Primary Care Provider: Ros Puentes [facility] Referrals: Ernesto Raymond MD [Med Staff - Active Staff] - Ana Purcell MD [Med Staff - Cyber Security] - Activity Restrictions/Additional Instructions: You may try taking Claritin to help your sinuses drain. Take the Antivert as needed for the dizziness, this is as an as needed medication. Follow-up with ENT. Print Language: Slovenian Disposition Disposition: Home, Self Care
[2025-03-04] MEDS: Ondansetron 4 MG/2 ML Vial IV (12:58)
[2025-03-04] MEDS: 0.9% Normal Saline (1000mL) 1,000 ML 999 ML IV (12:58)
[2025-03-04] MEDS: Meclizine HCl 25 MG Tablet PO (13:02)
[2025-03-04 13:19] LABS: Absolute Lymphocyte Count 1.85 X10^3/uL (0.83-4.51); Absolute Neutrophil Count 5.3 X10^3/uL (2.0-7.7); Basophil# 0.03 X10^3/uL; Basophil% 0.4 % (0-1); Eosinophil# 0.09 X10^3/uL; Eosinophils% 1.1 % (0-5); Hematocrit 39.5 % (37-47); Hemoglobin 13.4 g/dL (12.0-15.0); Lymphocyte # 1.85 X10^3/ul (0.83-4.51); Lymphocyte % 23.5 % (19-41); Mean Corp Hgb Conc 33.9 g/dL (32-36); Mean Corpuscular Hgb 29.2 pg (27.0-32.0); Mean Corpuscular Volume 86.1 fL (81-99); Mean Platelet Vol. 9.1 fl (6.2-12.0); Monocyte# 0.62 X10^3/uL; Monocyte% 7.9 % (0-10); NRBC Flagged by Analyzer 0 % (0-5); Neutrophil # 5.25 X10^3/uL (2.7-7.7); Neutrophil % 66.8 % (47-70); Platelet Count 270 K/mm3 (150-450); RBC Distribution Width CV 13.8 % (11.6-14.6); RBC Distribution Width SD 43.5 fl (35.1-43.9); Red Blood Count 4.59 M/mm3 (4.2-5.4); White Blood Count 7.9 K/mm3 (4.4-11.0)
[2025-03-04 13:54] LABS: Anion Gap 12 (5-15); BUN 12 mg/dL (4-19); BUN/Creat Ratio 19.3 RATIO (10-20); Calcium,Total 9.5 mg/dL (7.6-11.0); Carbon Dioxide 21.8 mmol/L (21.0-32.0); Chloride 103 mmol/L (98-108); Creatinine, Serum 0.64 mg/dL (0.70-1.20); EST Glomerular Filtration Rate 119 (>60); Estimated Creatinine Clearance 109.97 ml/min (50-250); Glucose 92 mg/dL (70-99); Potassium 4.6 mmol/L (3.3-5.1); Sodium Level 136 mmol/L (133-145)
[2025-03-04] MEDS: diazePAM 5 MG Tablet PO (14:03)
[2025-03-04 14:07] VITALS: BP 102/72; PULSE 75; RESP 16; O2SAT 100
[2025-03-04 14:39] VITALS: BP 94/78; PULSE 74; RESP 18; TEMP 36.6; O2SAT 100
== END 2025-03-04 14:40 | disposition home or self-care (01) ==
PROVIDERS: Nurse Practitioner; Emergency Provider Emergency Medicine; PCP Family Medicine; Visit Provider Emergency Medicine
DX: H81.10 Benign paroxysmal vertigo, unspecified ear (principal)
CPT/HCPCS: 80048; 85025; 96361; 96374; 99284; A4216; J2405

== ENCOUNTER → 2025-08-21 | Outpatient (CLI) | payer BC, SELFPAY ==
[2025-08-21 12:32] LABS: Hematocrit 40.3 % (37-47); Hemoglobin 13.3 g/dL (12.0-15.0); Immature Granulocytes Count 0.010 X10^3/uL (0.0-0.0); Mean Corp Hgb Conc 33.0 g/dL (32-36); Mean Corpuscular Volume 86.1 fL (81-99); Mean Platelet Vol. 9.7 fl (6.2-12.0); NRBC Flagged by Analyzer 0 % (0-5); Platelet Count 289 K/mm3 (150-450); RBC Distribution Width CV 13.3 % (11.6-14.6); RBC Distribution Width SD 42.2 fl (35.1-43.9); Red Blood Count 4.68 M/mm3 (4.2-5.4); White Blood Count 4.4 K/mm3 (4.4-11.0)
[2025-08-21 13:29] LABS: AST(SGOT) 28 U/L (<=31); Alanine Aminotransfer ALT/SGPT 23 U/L (<=34); Albumin, Serum 4.6 g/dL (3.5-5.0); Alkaline Phosphatase 83 U/L (35-104); Anion Gap 11 (5-15); BUN 14 mg/dL (4-19); BUN/Creat Ratio 24.3 RATIO (10-20); Calcium,Total 9.5 mg/dL (7.6-11.0); Carbon Dioxide 23.8 mmol/L (21.0-32.0); Chloride 103 mmol/L (98-108); Globulin 2.9 g/dL (2.2-4.2); Glucose 82 mg/dL (70-99); Magnesium 2.1 mg/dL (1.5-2.2); Potassium 4.5 mmol/L (3.3-5.1)
[2025-08-21 13:58] LABS: CORTISOL AM 7.54 ug/dL (6.02-18.40); Ferritin 90 ng/mL (22-378); Follicle Stimulating Hormone 3.8 mIU/mL; Vitamin B12 668 pg/mL (180-914); Vitamin D,25 Hydroxy 21.2 ng/mL (30-100)
[2025-08-22 08:08] LABS: PROGESTERONE 9.0 ng/mL (.)
== END | disposition home or self-care (01) ==
LOC: VSLAB 10:02
PROVIDERS: PCP Family Medicine; Visit Provider Family Medicine
DX: R53.83 Other fatigue (principal)
CPT/HCPCS: 36415; 80053; 82306; 82533; 82607; 82670; 82728; 83001; 83002; 83036; 83735; 84144; 84443; 85025